=== PATIENT | male | born 1935 | race Caucasian/White ===

== ENCOUNTER 2017-04-16 16:53 | Outpatient (CLI) | payer MEDICARE ==
[2017-04-16 17:14] LABS: #Basophils 0.1 thou/uL (0.0-0.2); #Eosinphils 0.3 thou/uL (0.0-0.7); #Lymphocytes 1.4 thou/uL (1.20-3.40); #Monocytes 0.7 thou/uL (0.11-0.59); #Neutrophils 6.9 thou/uL (1.40-6.50); %Basophils 1.1 % (0.0-1.0); %Eosinophils 3.7 % (0.0-10.0); %Lymphocytes 14.5 % (21.0-51.0); %Monocytes 7.6 % (0.0-10.0); %Neutrophils 73.2 % (42.0-75.0); Hemoglobin 14.7 g/dL (14.0-18.0); Mean Corpuscular HGB CONC 34.7 g/dL (32.0-36.0); Mean Corpuscular Hemoglobin 32.6 pg (27.0-31.0); Mean Corpuscular Volume 93.9 fl (80.0-94.0); Mean Platelet Volume 6.6 fL (7.4-10.4); Platelet Count 261 thou/uL (130-400); RBC Distribution Width 12.4 % (11.5-14.5); Red Blood Cell (RBC) Count 4.51 mill/uL (4.70-6.10); White Blood Cell (WBC) Count 9.4 thou/uL (4.8-10.8)
[2017-04-16 17:31] LABS: ALT (SGPT) 22 U/L (8-55); AST (SGOT) 21 U/L (5-34); Albumin 4.3 g/dL (3.4-4.8); Alkaline Phosphatase 101 U/L (40-150); Anion Gap 18 mmol/L (10-20); BUN (Urea Nitrogen) 22 mg/dL (8.4-25.7); Bilirubin, Total 0.6 mg/dL (0.2-1.2); Calc. Creatinine Clearance 0 mL/min (70-130); Calcium 9.4 mg/dL (7.8-10.44); Carbon Dioxide 25 mmol/L (23-31); Chloride 102 mmol/L (98-107); Estimated GFR-MDRD 72; Glucose 93 mg/dL (83-110); Potassium 3.6 mmol/L (3.5-5.1); Protein, Total 7.3 g/dL (5.8-8.1); Sodium 141 mmol/L (136-145)
--- NOTE | 2017-04-16 18:08 | RAD ---
PA AND LATERAL CHEST: History: COPD. Histoplasmosis. FINDINGS: Comparison is made with 07-09-16. Multiple calcified granulomas are again seen in the lung corrigan on either side. The heart size is bor derline. There is a right sided pleural effusion. No pneumothoraces are seen. There are degenerative changes in the spine. IMPRESSION: 1. Moderate right pleural effusion. 2. Old granulomatous disease. POS: [facility]
[2017-04-16 18:09] LABS: Free T4 (Free Thyroxine) 1.13 ng/dL (0.70-1.48); Thyroid Stimulating Hormone 0.6612 uIU/mL (0.35-4.94)
== END 2017-04-16 16:54 | disposition home or self-care (01) ==
LOC: SCSRAD 16:53
PROVIDERS: ATTEND Family Medicine
DX: J90 Pleural effusion, not elsewhere classified (principal); E03.9 Hypothyroidism, unspecified; I10 Essential (primary) hypertension
CPT/HCPCS: 36415; 71046; 80053; 84439; 84443; 85025

== ENCOUNTER 2017-05-05 13:06 | Outpatient (CLI) | payer MEDICARE ==
--- NOTE | 2017-05-05 15:40 | CT ---
CT OF THE BRAIN WITHOUT AND WITH CONTRAST: COMPARISON: None. HISTORY: Dizziness. The patient has a history of melanoma. TECHNIQUE: Multiple contiguous axial images were obtained in a CT of the brain without and with IV contrast. FINDINGS: There are a few scattered hypodensities in the subcortical and periventricular white matter, likely s econdary to small-vessel ischemic disease. No large confluent infarction is seen. No abnormal enhan cement is seen. There is no enhancement of hydrocephalus, intracranial hemorrhage, or extraaxial fluid collection. The calvarium and overlying soft tissues are unremarkable. The visualized paranasal sinuses and mast oid air cells are well aerated. IMPRESSION: No evidence of acute intracranial abnormality. POS: [facility]
== END 2017-05-05 13:07 | disposition home or self-care (01) ==
LOC: SCSCT 13:06
PROVIDERS: ATTEND Family Medicine
DX: R26.81 Unsteadiness on feet (principal)
CPT/HCPCS: 70470

== ENCOUNTER 2017-05-21 14:18 | Outpatient (CLI) | payer MEDICARE ==
--- NOTE | 2017-05-21 14:52 | RAD ---
PA AND LATERAL VIEWS OF CHEST: Date: 05/21/17 HISTORY: Shortness of breath. FINDINGS: Comparison made with exam of 04/16/17. The heart size is borderline, stable. Moderate right-sided pleural effusion again seen. Multiple calc ified granulomas in the lung corrigan on either side are redemonstrated. There are degenerative changes in the spine. IMPRESSION: Stable exam. POS: [facility]
== END 2017-05-21 14:19 | disposition home or self-care (01) ==
LOC: SCSRAD 14:18
PROVIDERS: ATTEND Family Medicine
DX: J90 Pleural effusion, not elsewhere classified (principal)
CPT/HCPCS: 71046

== ENCOUNTER 2017-07-01 09:03 | Outpatient (CLI) | payer MEDICARE ==
--- NOTE | 2017-07-01 12:36 | RAD ---
PA AND LATERAL CHEST: HISTORY: Shortness of breath, cough, congestion for several weeks. COMPARISON: 05/21/2017 FINDINGS: The scattered calcified nodules within both lungs are similar, suspicious for granuloma. The moderat e cardiomegaly is stable. Mild pulmonary vascular congestion persists. There is a tiny left and a s mall right pleural effusion. There is multilevel spondylosis of the thoracic spine. IMPRESSION: Stable exam. POS: [facility]
== END 2017-07-01 09:04 | disposition home or self-care (01) ==
LOC: SCSRAD 09:03
PROVIDERS: ATTEND Family Medicine
DX: J90 Pleural effusion, not elsewhere classified (principal)
CPT/HCPCS: 71046

== ENCOUNTER 2017-07-17 17:23 | Inpatient (IN) | payer MEDICARE ==
[2017-07-17 18:10] LABS: INR-International Normal Ratio 1.5
[2017-07-17 18:11] LABS: PTT 53.7 SEC (22.9-36.1)
[2017-07-17 18:21] LABS: Troponin I 0.168 ng/mL (< 0.028)
[2017-07-17 18:23] LABS: CKMB 8.8 ng/mL (0-6.6)
[2017-07-17] MEDS ORDERED: DOBUTAMINE IN DEXTROSE 5 % 250 MG in Premix Bag 1 BAG IV SCH ×4 (18:45→19:45)
[2017-07-17] MEDS ORDERED: Bisacodyl 5 MG TAB PO PRN (19:22)
[2017-07-17] MEDS ORDERED: DOBUTamine 500 mg/250 ml 250 ML IVPB SCH (19:30)
--- NOTE | 2017-07-17 20:09 | RAD ---
FRONTAL VIEW CHEST: 07/17/17 CLINICAL HISTORY: Syncope. COMPARISON: 06/10/16. FINDINGS: There is a defibrillator pad overlying the right chest which obscures detail. There is a pleural base d density at the inferior right chest. Numerous punctate nodular densities are again seen overlying t he chest bilaterally. There is enlargement of the cardiac silhouette and mild prominence of the pulmo nary vasculature. Osseous degenerative changes are present. IMPRESSION: 1. Moderate right effusion with adjacent atelectasis and/or pneumonia. 2. Numerous hyperdense nodular opacities of each lung are again demonstrated indicating sequela from prior granulomatous disease. POS: [facility]
--- NOTE | 2017-07-17 20:53 | HP ---
PRIMARY CARE PHYSICIAN: Russell Scott M.D. CHIEF COMPLAINT: Syncope. HISTORY OF PRESENT ILLNESS: Mr. Mcdaniels is a pleasant 81-year-old gentleman who was seen at [facility] on 07/17/2017 after transfer from [place]. He was hospitalized at [facility] from 06/02/2017 to 06/06/2017 for acute hypo xic respiratory failure and acute on chronic diastolic heart failure. He reports doing reasonably well at home. His family member in the room reports that he fell at leas t 100 times in the last month. He saw Dr. Rebolledo as an outpatient. Apparently, he had a syncopal e pisode when he urinated on himself. It was felt that his presentation was secondary to a seizure. Nicki cosme has been started on Keppra for the last 1 or 2 weeks, but has not seen much improvement. He passed out last night for 1-1/2 minutes. He denies having any chest pain, but had dizziness. He passed out again today while getting into the car. He was seen at [facility]. There, he was found to villalpando ve 2:1 complete AV heart block. He was subsequently sent to this hospital. REVIEW OF SYSTEMS: The following complete review of systems was negative, unless otherwise mentioned in the HPI or below: Constitutional: Weight loss or gain, ability to conduct usual activities. Sk in: Rash, itching. Eyes: Double vision, pain. ENT/Mouth: Nose bleeding, neck stiffness, pain, te nderness. Cardiovascular: Palpitations, dyspnea on exertion, orthopnea. Respiratory: Shortness of breath, wheezing, cough, hemoptysis, fever or night sweats. Gastrointestinal: Poor appetite, abdom inal pain, heartburn, nausea, vomiting, constipation, or diarrhea. Genitourinary: Urgency, frequenc y, dysuria, nocturia. Musculoskeletal: Pain, swelling. Neurologic/Psychiatric: Anxiety, depressio n. Allergy/Immunologic: Skin rash, bleeding tendency. PAST MEDICAL HISTORY: Significant for chronic atrial fibrillation, on chronic anticoagulation with P radaxa; hypertension; diabetes; alcoholism; obstructive sleep apnea syndrome, on CPAP therapy; dyslip idemia; hypothyroidism; osteoarthritis; chronic headaches; unknown type of hepatitis; chronic lung di sease with history of exposure to bird droppings; viral encephalitis. PAST SURGICAL HISTORY: Significant for cardiac ablation x2, hernia repair, bilateral hip surgery, an d left heel surgery. SOCIAL HISTORY: He drinks 6-8 double shots of liquor on a daily basis. He denies any tobacco use or recreational drug use. FAMILY HISTORY: No family history of premature coronary artery disease. CODE STATUS: I discussed his code status. He is FULL CODE. ALLERGIES: PENICILLIN. CURRENT MEDICATIONS: Aspirin 81 mg daily, Lipitor 20 mg daily, Pradaxa 150 mg 2 times a day, folic a lucas 1 mg daily, Lasix 40 mg 2 times a day, ipratropium nasal spray twice daily, Synthroid 100 mcg cassie ly, lisinopril 5 mg 2 times a day, multivitamins 1 tablet daily, paroxetine 40 mg daily, Aldactone 25 mg daily, thiamine 100 mg daily, trazodone 100 mg at bedtime. PHYSICAL EXAMINATION: GENERAL: On examination, Mr. Mcdaniels is awake and alert, not in acute distress. VITAL SIGNS: Blood pressure is 120/65, pulse is 40, he is breathing at rate of 20 and saturating 94% on room air. He is afebrile. EYES: No scleral icterus. No conjunctival pallor. ENT: Moist mucosal membranes, no oropharyngeal erythema or exudates. NECK: Supple, nontender, normal range of movement. Trachea is midline. RESPIRATORY: Accessory muscles of breathing are not active. Chest wall movements are symmetric bila terally. Lungs are clear to auscultation without wheeze, rhonchi or crepitations. CARDIOVASCULAR: S1 and S2 are heard, bradycardic and regular. Peripheral pulses palpable. No carot id bruit, no pericardial rub. ABDOMEN: Distended, nontender, bowel sounds are heard, no hepatomegaly, no splenomegaly. NEUROLOGIC: Cranial nerves II-XII intact. Deep tendon reflexes are 2+. SKIN: No rashes or subcutaneous nodules. MUSCULOSKELETAL: Power is 5/5 in all 4 extremities. Normal range of movement at all major extremity joints. LYMPHATIC: No cervical lymphadenopathy. PSYCHIATRIC: Normal mood, normal affect. The patient is oriented to person, place, and time. LABORATORY AND X-RAY FINDINGS: Mr. Mcdaniels's labs and investigations were reviewed. I reviewed his chest x-ray, which does not show any pulmonary infiltrates. I also reviewed a noncontrast CT scan o f the brain, which did not show any acute intracranial abnormality. I reviewed the electrocardiogram done here, which shows sinus bradycardia with first degree AV block. Laboratory investigations show normal white count, macrocytic anemia with hemoglobin 13.3, normal joseluis telet count, normal electrolytes, elevated blood urea nitrogen of 30, elevated creatinine 1.46, last known creatinine 1.00 on 04/16/2017, normal total bilirubin, elevated AST of 56, elevated ALT of 75, elevated alkaline phosphatase of 161, all 3 parameters were normal in 04/2017, elevated troponin I of 0.168, last known troponin I 0.068 on 06/10/2016, elevated BNP of 541.2 and a normal TSH. ASSESSMENT AND PLAN: Mr. Mcdaniels is a pleasant 81-year-old gentleman who was seen at [facility] on 07/17/2017. His problem list includes: 1. Syncope: Cardiogenic, secondary to bradyarrhythmia. 2. Bradyarrhythmia: Mr. Mcdaniels is being admitted to the hospital for further management. His sravanthi e has been discussed with the chair springer rehabilitation tech by emergency room physician. The patient is being started on a dobutamine drip through peripheral line and is being admitted to [facility]. He is not on an y medications that could cause bradycardia. He will likely need permanent pacemaker. I will keep hi m n.p.o. after midnight. 3. Abnormal liver function test: Likely secondary to alcohol abuse, although an element of congesti ve heart failure cannot be ruled out, given his elevated BNP. We will recheck LFTs. 4. Alcohol abuse: Start the patient on ASE protocol, counseled patient regarding alcohol moderation . 5. Atrial fibrillation: We will hold his anticoagulation, since he may need a pacemaker placement. 6. Hypothyroidism: Stable, patient has a normal TSH. 7. Dyslipidemia: Continue statin. 8. Hypertension: Monitor vital signs, titrate antihypertensives as needed. Many thanks for allowing me to participate in your patient's care. Please feel free to contact me wi th any questions or concerns. LEVEL OF RISK: High. LEVEL OF COMPLEXITY: High.
[2017-07-17] MEDS ORDERED: Lisinopril 5 MG TAB PO SCH (21:00)
[2017-07-17] MEDS ORDERED: Atropine Sulfate 1 mg/1 ml Vial IVP PRN (22:23)
[2017-07-17 22:24] VITALS: BMI 30.2
[2017-07-17] MEDS: Folic Acid 1 MG TAB PO SCH (23:13)
--- NOTE | 2017-07-18 02:14 | CON ---
DATE OF CONSULTATION: 07/17/2017 PRIMARY CLEARANCE CENTER MANAGER: Dr. Rj Jaquez. HISTORY OF PRESENT ILLNESS: Mr. Claudio Mcdaniels is a 81-year-old gentleman with history of atrial f ibrillation, now admitted with severe bradycardia. Mr. Mcdaniels states that for about the last 3 or 4 days, he has felt weak and lightheaded. When he h as tried to get up, he is almost fainted. He finally came in to the emergency room and was found to have a severe bradycardia. The patient has a history of atrial fibrillation, but was maintaining sinus rhythm. He had been main tained on Pradaxa. He had been in the hospital in 06/2016 with acute hypoxic respiratory failure, improved with diuresis , apparently thought to have a left ventricular diastolic dysfunction and diastolic heart failure. A t that time, it was noted that he had paroxysmal atrial fibrillation. The patient had been doing wel l for the last few days, there has been no chest pain or tightness, but progressive weakness has been present. MEDICATIONS AT HOME: Included: 1. Pradaxa twice a day 150 mg 2. Folic acid. 3. Lasix. 4. Thiamine. 5. Aspirin. 6. Spironolactone. 7. Levothyroxine. 8. Doxycycline. REVIEW OF SYSTEMS: Constitutional: No significant weight gain or loss. Vision: No changes. Heari ng: No changes. Pulmonary: No cough or wheezing. Gastrointestinal: No nausea, vomiting, or diarr hea. Skin: No rashes. Neurologic: No unilateral weakness or numbness. Psychiatric: No unusual d epression or anxiety. Hematologic: No unusual bruising. Genitourinary: No burning with urination. ALLERGIES: PENICILLIN. PAST MEDICAL HISTORY: Paroxysmal atrial fibrillation. SOCIAL HISTORY: No alcohol or tobacco. FAMILY HISTORY: Negative for heart disease at a young age. PHYSICAL EXAMINATION: GENERAL: This is a very pleasant, elderly gentleman, resting comfortably, in no distress. VITAL SIGNS: Blood pressure is in the 130s systolic. Pulse now in the mid 40s. HEENT: Eyes: Sclerae nonicteric. Mouth: Mucous membranes moist. NECK: Supple, no lymphadenopathy. LUNGS: Clear, no wheezing, rales or rhonchi. CARDIAC: Bradycardic. I do not hear a murmur, rub or gallop. ABDOMEN: Soft, nontender, no hepatosplenomegaly. EXTREMITIES: Warm, dry, no clubbing or cyanosis. There is moderate peripheral edema. LABORATORY AND X-RAY FINDINGS: The patient's INR is 1.5, PTT is 53.7. Creatinine 1.46. Estimated GFR is 47. Hemoglobin is 13.3. EKG reveals a left bundle branch block pattern. It looked like there is a sinus rhythm with a 2:1 AV block. ASSESSMENT: 1. Left bundle branch block, chronic. 2. Bradycardia, sinus rhythm with 2:1 AV conduction. 3. Paroxysmal atrial fibrillation. 4. Anticoagulated, on Pradaxa. PLAN: 1. Dobutamine has been added. 2. He has a temporary pacemaker in place. 3. We will need pacemaker insertion, a dual chamber versus biventricular with normal left ventricula r systolic function, would likely get a dual chamber biventricular. 4. We will also check and see whether the Pradaxa is available.
[2017-07-18] MEDS ORDERED: Acetaminophen 325 MG TAB PO PRN (04:38)
[2017-07-18] MEDS ORDERED: Refresh (Polyvinyl Alcohol 1.4%/Povidone 0.6%) Opth Drops EA EYE PRN (04:39)
[2017-07-18] MEDS ORDERED: Sodium Chloride 0.9% 500 ML IV SCH (04:45)
[2017-07-18] MEDS: Levothyroxine Sodium 100 MCG TAB PO SCH (05:08)
[2017-07-18 05:22] LABS: #Eosinphils 0.2 thou/uL (0.0-0.7); #Lymphocytes 1.3 thou/uL (1.20-3.40); #Monocytes 0.5 thou/uL (0.11-0.59); #Neutrophils 5.1 thou/uL (1.40-6.50); %Basophils 0.3 % (0.0-1.0); %Eosinophils 2.6 % (0.0-10.0); %Lymphocytes 18.1 % (21.0-51.0); %Monocytes 7.4 % (0.0-10.0); %Neutrophils 71.7 % (42.0-75.0); Hemoglobin 12.6 g/dL (14.0-18.0); Mean Corpuscular HGB CONC 34.1 g/dL (32.0-36.0); Mean Corpuscular Hemoglobin 33.2 pg (27.0-31.0); Mean Corpuscular Volume 97.3 fl (80.0-94.0); Mean Platelet Volume 7.3 fL (7.4-10.4); Platelet Count 221 thou/uL (130-400); Red Blood Cell (RBC) Count 3.79 mill/uL (4.70-6.10); White Blood Cell (WBC) Count 7.1 thou/uL (4.8-10.8)
[2017-07-18 05:39] LABS: ALT (SGPT) 52 U/L (8-55); AST (SGOT) 34 U/L (5-34); Albumin 3.4 g/dL (3.4-4.8); Alkaline Phosphatase 136 U/L (40-150); Bilirubin, Direct 0.4 mg/dL (0.1-0.3); Bilirubin, Total 0.6 mg/dL (0.2-1.2); Protein, Total 5.5 g/dL (5.8-8.1)
[2017-07-18 05:46] LABS: Anion Gap 12 mmol/L (10-20); BUN (Urea Nitrogen) 26 mg/dL (8.4-25.7); Calc. Creatinine Clearance 75 mL/min (70-130); Calcium 8.9 mg/dL (7.8-10.44); Carbon Dioxide 23 mmol/L (23-31); Chloride 103 mmol/L (98-107); Estimated GFR-MDRD 62; Glucose 99 mg/dL (83-110); Potassium 3.4 mmol/L (3.5-5.1); Sodium 135 mmol/L (136-145)
[2017-07-18] MEDS ORDERED: DOPamine 400 MG/D5W 250 ML 250 ML IVPB SCH (07:30)
[2017-07-18] MEDS ORDERED: IDARUCIZUMAB 2.5 GM/50 ML VIAL IV SCH (09:00)
[2017-07-18] MEDS ORDERED: Spironolactone 25 MG TAB PO SCH (09:00)
[2017-07-18] MEDS ORDERED: Potassium Chloride 40 MEQ in Sodium Chloride 0.9% 250 ML 250 ML IVPB SCH (09:00)
[2017-07-18] MEDS ORDERED: Potassium Chloride 40 MEQ in Premix Bag 1 BAG IVPB SCH (09:00)
[2017-07-18] MEDS ORDERED: Lidocaine 1% (PF) 30 ML VIAL ONE ×2 (09:03→12:31)
--- NOTE | 2017-07-18 10:13 | RAD ---
RADIOGRAPH CHEST 1 VIEW: Date: 07/18/17 Time: 0905 HOURS HISTORY: 81-year-old male with congestive heart failure. COMPARISON: 07/17/17 at 1815 hours. FINDINGS: The current image is supine, which would be insensitive for pneumothorax detection. There is a greate r degree of prominent right apical pleural capping, presumably by posterior layering of right pleural effusion. The basilar component of the right pleural effusion remains, with underlying opacification of the right lung base. There is cardiomegaly. No pulmonary alveolar edema. There may or may not be a small left pleural effusion. Prominent interstitial markings. IMPRESSION: 1. Right pleural effusion and underlying opacification of right lung base. 2. Cardiomegaly. 3. Right apical pleural thickening, probably representing component of right pleural effusion. 4. There has probably been no major interval change since yesterday. MEG [] POS: [facility]
[2017-07-18] MEDS: PARoxetine 20 MG TAB PO SCH (10:18)
[2017-07-18] MEDS: Multivit, Therapeutic 1 TAB PO SCH (10:18)
[2017-07-18] MEDS: Proctozone-HC 2.5% Cream 30 GM TUBE TOP SCH ×2 (10:18→21:22)
[2017-07-18] MEDS: Atorvastatin Calcium 20 MG TAB PO SCH (10:18)
[2017-07-18 10:47] LABS: INR-International Normal Ratio 1.1; PTT 30.1 SEC (22.9-36.1); Prothrombin Time 13.9 SEC (12.0-14.7)
[2017-07-18] MEDS ORDERED: CEFAZOLIN 1 GM VIAL ONE (12:57)
[2017-07-18] MEDS ORDERED: Clindamycin/D5W 900 mg/50 ml Premix Bag ONE (12:57)
[2017-07-18] MEDS ORDERED: Levofloxacin 500 mg/D5W 100 ml Premix Bag ONE (12:57)
[2017-07-18] MEDS ORDERED: Midazolam HCl 2 mg/2 ml Vial ONE (13:21)
[2017-07-18] MEDS ORDERED: Acetaminophen/Codeine 30-300mg Tablet PO PRN (14:25)
--- NOTE | 2017-07-18 15:45 | PDOC.PN ---
- Subjective Encounter Start Date: 07/18/17 Encounter Start Time: 15:42 Subjective: had hypotension this morning requiring Dopamine & dobutamine drips -: Now is s/p temp Pacemaker insertion by cardiology this am -: feels better.denies any CP/SOB - Objective Resuscitation Status: Resuscitation Status FULL:Full Resuscitation MAR Reviewed: Yes Vital Signs & Weight: Vital Signs (12 hours) Temp Pulse Resp BP Pulse Ox 07/18/17 15:26 94 L 07/18/17 12:00 98.1 F 98 07/18/17 09:47 98.1 F 78 16 96 07/18/17 08:39 97.7 F 49 L 16 88 L 07/18/17 08:15 49 L 16 70/34 L 87 L 07/18/17 07:13 97.7 F 56 L 18 75/36 L 91 L 07/18/17 06:41 91 L 07/18/17 04:00 98.7 F 79 18 95/48 L 97 Weight Weight 222 lb 8 oz Most Recent Monitor Data Heart Rate from ECG 71 NIBP 90/54 NIBP BP-Mean 64 Respiration from ECG 19 SpO2 95 I&O: 07/17/17 07/18/17 07/19/17 06:59 06:59 06:59 Intake Total 788 260 Output Total 325 0 Balance 463 260 Result Diagrams: 07/18/17 04:42 07/18/17 04:42 Additional Labs: Laboratory Tests 06/02/16 06/02/16 06/02/16 07:57 11:49 14:24 Troponin I 0.043 H 0.044 H 0.050 H Triglycerides Cholesterol LDL Cholesterol, Calc HDL Cholesterol 06/03/16 06:28 Troponin I Triglycerides 57 Cholesterol 112 LDL Cholesterol, Calc 57 HDL Cholesterol 44 Phys Exam - Physical Examination Constitutional: NAD HEENT: PERRLA, moist MMs, sclera anicteric, oral pharynx no lesions venti mask Neck: no JVD Respiratory: no wheezing, no rales, no rhonchi, clear to auscultation bilateral Cardiovascular: RRR, no significant murmur Gastrointestinal: soft, non-tender, no distention, positive bowel sounds Musculoskeletal: no edema, pulses present left groin site w/o hematoma Neurological: non-focal, normal sensation, moves all 4 limbs Psychiatric: normal affect, A&O x 3 Dx/Plan (1) Cardiogenic shock Code(s): R57.0 - CARDIOGENIC SHOCK Status: Acute Comment: On Dobutamine & dopamine per cardiology (2) AV block Code(s): I44.30 - UNSPECIFIED ATRIOVENTRICULAR BLOCK Status: Acute Comment: s/p Temp pacemaker 07/18/17.Cardiology following (3) H/O histoplasmosis Code(s): Z86.19 - PERSONAL HISTORY OF OTHER INFECTIOUS AND PARASITIC DISEASES Status: Chronic (4) Chronic respiratory failure with hypoxia, on home O2 therapy Code(s): J96.11 - CHRONIC RESPIRATORY FAILURE WITH HYPOXIA; Z99.81 - DEPENDENCE ON SUPPLEMENTAL OXYGEN Status: Chronic (5) ESTELA on CPAP Code(s): G47.33 - OBSTRUCTIVE SLEEP APNEA (ADULT) (PEDIATRIC); Z99.89 - DEPENDENCE ON OTHER ENABLING MACHINES AND DEVICES Status: Chronic (6) Chronic a-fib Code(s): I48.2 - CHRONIC ATRIAL FIBRILLATION Status: Chronic (7) Chronic alcoholism Code(s): F10.20 - ALCOHOL DEPENDENCE, UNCOMPLICATED Status: Chronic (8) HLD (hyperlipidemia) Code(s): E78.5 - HYPERLIPIDEMIA, UNSPECIFIED Status: Chronic (9) HTN (hypertension) Code(s): I10 - ESSENTIAL (PRIMARY) HYPERTENSION Status: Chronic Qualifiers: Hypertension type: essential hypertension Qualified Code(s): I10 - Essential (primary) hypertension (10) Chronic anticoagulation Code(s): Z79.01 - PUMP SERVICER (CURRENT) USE OF ANTICOAGULANTS Status: Chronic Comment: Pradaxa on hold for procedure - Plan PT/OT, respiratory therapy, incentive spirometry, out of bed/ambulate, DVT proph w/SCDs cont supportive care. Improved hemodynamics post procedure. -: hold BP meds for now -: Move to CCU for closer monitoring -: am labs. * . Review of Systems - Review of Systems Constitutional: weakness. negative: fever, chills, sweats, malaise, other ENT: negative: Ear Pain, Ear Discharge, Nose Pain, Nose Discharge, Nose Congestion, Mouth Pain, Mouth Swelling, Throat Pain, Throat Swelling, Other Respiratory: negative: Cough, Dry, Shortness of Breath, Hemoptysis, SOB with Excertion, Pleuritic Pain, Sputum, Wheezing Cardiovascular: negative: chest pain, palpitations, orthopnea, paroxysmal nocturnal dyspnea, edema, light headedness, other Gastrointestinal: negative: Nausea, Vomiting, Abdominal Pain, Diarrhea, Constipation, Melena, Hematochezia, Other Genitourinary: negative: Dysuria, Frequency, Incontinence, Hematuria, Retention , Other Musculoskeletal: negative: Neck Pain, Shoulder Pain, Arm Pain, Back Pain, Hand Pain, Leg Pain, Foot Pain, Other Skin: negative: Rash, Lesions, Channing, Bruising, Other Neurological: negative: Weakness, Numbness, Incoordination, Change in Speech, Confusion, Seizures, Other - Medications/Allergies Allergies/Adverse Reactions: Allergies Allergy/AdvReac Type Severity Reaction Status Date / Time Penicillins Allergy Verified 07/18/17 06:20 Medications: Current Medications Acetaminophen (Tylenol) 650 mg PO Q6H PRN PRN Reason: Pain 1-3 Acetaminophen/Codeine Phosphate (Tylenol #3) 1 tab PO Q4H PRN PRN Reason: Mild Pain (1-3) Atorvastatin Calcium (Lipitor) 20 mg PO DAILY [facility] Last Admin: 07/18/17 10:18 Dose: Not Given Atropine Sulfate (Atropine) 1 mg IVP ONE PRN PRN Reason: SYMPTOMATIC BRADYCARDIA Stop: 07/20/17 22:24 Bisacodyl (Dulcolax) 10 mg PO DAILYPRN PRN PRN Reason: Constipation Folic Acid (Folvite) 1 mg PO QPM [facility] Last Admin: 07/17/17 23:13 Dose: 1 mg Hydrocortisone Sodium Succinate (Proctozone-Hc 2.5% Cream) 0 gm TOP BID [facility] Last Admin: 07/18/17 10:18 Dose: Not Given Levothyroxine Sodium (Synthroid) 100 mcg PO 0600 [facility] Last Admin: 07/18/17 05:08 Dose: 100 mcg Multivitamins (Theragran) 1 tab PO DAILY [facility] Last Admin: 07/18/17 10:18 Dose: Not Given Paroxetine HCl (Paxil) 40 mg PO DAILY [facility] Last Admin: 07/18/17 10:18 Dose: Not Given Polyvinyl Alcohol/Povidone (Refresh Classic Eye Drops) 0 each EA EYE PRN PRN PRN Reason: DRY EYES Last Admin: 07/18/17 04:56 Dose: 1 each Sodium Chloride (Flush - Normal Saline) 10 ml IVF Q12HR [facility] Sodium Chloride (Flush - Normal Saline) 10 ml IVF PRN PRN PRN Reason: Saline Flush Sodium Chloride (Flush - Normal Saline) 10 ml IVF Q12HR [facility] Thiamine HCl (Thiamine) 100 mg PO QPM [facility] Last Admin: 07/17/17 23:13 Dose: 100 mg
--- NOTE | 2017-07-18 15:54 | CCL ---
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 He was advised to undergo dual-chamber pacemake r insertion. He was taken to cardiac dental laboratory worker where he underwent procedure today without difficulty or complicatio n. He was implanted with a dual chamber pacemaker from [employer]. This is an [employer] and he also had two screw in leads placed, one in the atrium, one in the ventricle. The pacer was set with the upper rate of 120. The lower rate was set at 60. There were no difficulties or complications encountered. The temporary pacemaker was then removed.
--- NOTE | 2017-07-18 16:32 | RAD ---
RADIOGRAPH CHEST 1 VIEW: Date: 07/18/17 Time: 4:20 p.m. HISTORY: Status post pacemaker placement in 81-year-old male. COMPARISON: 07/18/17, 9:05 a.m. FINDINGS: There is a new left subclavian dual lead pacemaker, with lead tips overlying the expected locations o f the right atrial appendage and right ventricle. There is no evidence of pneumothorax. There is inte rval change in the appearance of the chest otherwise. IMPRESSION: 1. Left transvenous permanent pacemaker placement without evidence of pneumothorax. 2. Right pleural effusion with opacification of the right base, and also with right apical compo nent. 3. No interval change in the appearance of the lungs. MEG [] POS: [facility]
--- NOTE | 2017-07-18 17:43 | CCL ---
DATE OF SERVICE: 07/18/17 PROCEDURE PERFORMED: Temporary pacemaker placement. INDICATION: Complete heart block with hemodynamic instability. SUMMARY: The patient was brought to the catheterization lab emergently after verbal consent was obtained, he w as prepped and draped in the usual sterile fashion. We then obtained access in the right femoral vei n and then floated a temporary pacer wire balloon tipped into the right ventricle where he started be ing paced successfully. Blood pressure improved. Symptoms also improved. Plan to insert a permanent pacemaker later today in a more stable setting.
--- NOTE | 2017-07-18 18:05 | PRG ---
DATE OF SERVICE: 07/18/2017 This is a late entry and the patient was seen at 9:00 a.m. today. Mr. Mcdaniels was admitted yesterda y for symptomatic bradycardia. He was found to be in complete heart block 2:1 AV block as well and w as admitted and placed on dobutamine and dopamine for hypotension during his bradycardia. This benito smith I was called emergently at his bedside as his heart rate remained in the 40s in 2:1 AV block; how ever, he started to get short of breath, hypoxic, and his blood pressure dropped to the 60s/40s. At this point, he has received a dose of Pradaxa yesterday, so he is still anticoagulated, so it would n ot be safe to do a permanent pacemaker, so we up titrated his dopamine and dobutamine. I stayed with him until we were able to take him down to the catheterization lab and placed a temporary pacemaker. Once temporary pacemaker was placed, his heart rate was set at 80 and his blood pressure was actual ly much better into the 100s/50s. He also felt much better. He is a little more short of breath titi n before, so he started to go into heart failure. We also ordered a dose of Praxbind to reverse the Pradaxa. This was given bedside as well. The patient is stable now. He will receive a permanent pa cemaker later today. Over 45 minutes were spent bedside of critical care for this patient.
--- NOTE | 2017-07-18 20:59 | PRG ---
DATE OF SERVICE: 07/18/2017 This is pulmonary consultation SUBJECTIVE: Mr. Mcdaniels is a gentleman seen by me in the Critical Care Unit, being temporally pace d. Consulted because of his presence in the ICU. He apparently has a history of falling frequently. He recently had syncope. He was treated for seiz ures with Keppra, but has continued to have syncope. He has subsequently been found to have a 2:1 AV block and was sent in temporally paced. He schedule for permanent pacemaker this afternoon. PAST MEDICAL HISTORY: 1. Remarkable for chronic atrial afibrillation on Pradaxa. 2. Hypertension. 3. Diabetes. 4. History of sleep apnea on CPAP. 5. Lipid disorder. 6. Hypothyroidism. 7. DJD. 8. History of hepatitis. 9. History of some type of chronic lung disease. 10. History of viral encephalitis. 11. History of cardiac ablation. 12. History of herniorrhaphy. 13. History of bilateral hip replacements and heel surgery. SOCIAL HISTORY: He is a heavy drinker, nonsmoker. He does not use drugs. FAMILY HISTORY: Negative for lung disease or heart disease. ALLERGIES: Reports an allergy to PENICILLIN. MEDICATIONS: Include aspirin, Lipitor, Pradaxa, Lasix, ipratropium nasal spray, Synthroid, lisinopri l, multivitamins, Aldactone, thiamine, trazodone. REVIEW OF SYSTEMS: Ten points were negative. PHYSICAL EXAMINATION: GENERAL: He is very pleasant. He was in no distress. He is supine with a pacer in place. I did no t sit him up. VITAL SIGNS: He is afebrile, heart rate was 70, oximetry is 94 on 2 liters, blood pressure 106/61. HEENT: Pupils are equal. Sclerae is anicteric. Extraocular movements are full. NECK: Supple. No lymphadenopathy. LUNGS: Clear. CARDIOVASCULAR: Regular rhythm, no S3. ABDOMEN: Soft and nontender. EXTREMITIES: Without clubbing, cyanosis, or edema. NEUROLOGIC: Nonfocal as best as I could examine him lying flat in bed. He had no apparent weakness of any of his extremities. IMAGING: Chest radiograph reviewed by me showed transient pacer, right pleural effusion, otherwise lungs are remarkable. LABORATORY DATA: White count 7.1, hemoglobin 12.6, platelets 221. Sodium 135, potassium 3.4, chlori de 103, bicarb 23, BUN 26, creatinine 1.14, glucose 99, albumin 0.16. BNP 775. IMPRESSION: Heart block requiring pacemaker temporarily and then eventually later today. Hopefully, permanent pacemaker appears to be clinically stable. He has not dyspneic, flat in bed. An echocardiogram has been done which surprisingly shows a normal ejection fraction, but severe left ventricular hypertrophy, moderate mitral regurgitation was seen. He appears to be clinically stable to go down for his pacemaker will be happy to follow him while he is in the hospital. There are no acute care issues. I see nothing on his radiograph suggestive of c hronic lung disease. This is a 50 minute consult greater than 50% of the time was spent in the coordinating care.
[2017-07-18] MEDS: Folic Acid 1 MG TAB PO SCH (21:21)
[2017-07-19 04:21] LABS: #Eosinphils 0.2 thou/uL (0.0-0.7); #Lymphocytes 1.1 thou/uL (1.20-3.40); #Monocytes 0.7 thou/uL (0.11-0.59); #Neutrophils 5.3 thou/uL (1.40-6.50); %Eosinophils 2.1 % (0.0-10.0); %Lymphocytes 15.2 % (21.0-51.0); %Monocytes 10.2 % (0.0-10.0); %Neutrophils 72.4 % (42.0-75.0); Hemoglobin 12.6 g/dL (14.0-18.0); Mean Corpuscular HGB CONC 34.1 g/dL (32.0-36.0); Mean Corpuscular Hemoglobin 33.3 pg (27.0-31.0); Mean Corpuscular Volume 97.7 fl (80.0-94.0); Mean Platelet Volume 6.9 fL (7.4-10.4); Platelet Count 234 thou/uL (130-400); RBC Distribution Width 14.1 % (11.5-14.5); Red Blood Cell (RBC) Count 3.77 mill/uL (4.70-6.10); White Blood Cell (WBC) Count 7.3 thou/uL (4.8-10.8)
[2017-07-19 04:51] LABS: Anion Gap 11 mmol/L (10-20); BUN (Urea Nitrogen) 23 mg/dL (8.4-25.7); Calc. Creatinine Clearance 84 mL/min (70-130); Calcium 8.6 mg/dL (7.8-10.44); Carbon Dioxide 23 mmol/L (23-31); Chloride 106 mmol/L (98-107); Estimated GFR-MDRD 71; Glucose 94 mg/dL (83-110); Sodium 136 mmol/L (136-145)
[2017-07-19] MEDS: Levothyroxine Sodium 100 MCG TAB PO SCH (05:03)
[2017-07-19] MEDS: Proctozone-HC 2.5% Cream 30 GM TUBE TOP SCH ×2 (08:00→20:58)
[2017-07-19] MEDS ORDERED: Amitriptyline HCl 25 MG TAB PO SCH (09:00)
[2017-07-19] MEDS ORDERED: Furosemide 20 MG TAB PO SCH (09:00)
[2017-07-19] MEDS: Folic Acid 1 MG TAB PO SCH ×2 (09:53→20:56)
[2017-07-19] MEDS: Multivit, Therapeutic 1 TAB PO SCH (09:53)
[2017-07-19] MEDS: Atorvastatin Calcium 20 MG TAB PO SCH (09:53)
[2017-07-19] MEDS: PARoxetine 20 MG TAB PO SCH (09:54)
[2017-07-19] MEDS: Furosemide 20 MG TAB PO SCH ×2 (09:54→15:02)
[2017-07-19] MEDS: levETIRAcetam 500 MG TAB PO SCH ×2 (09:55→20:56)
[2017-07-19] MEDS ORDERED: Sodium Chloride 0.9% 10 ML ONE ×2 (11:08→17:31)
[2017-07-19] MEDS: Vancomycin HCl 1 GM in Premix Bag 1 BAG IVPB SCH ×2 (11:13→21:10)
[2017-07-19] MEDS: metroNIDAZOLE 500 MG in Premix Bag 1 BAG IVPB SCH ×3 (12:29→23:05)
--- NOTE | 2017-07-19 13:00 | ULT ---
TESTICULAR ULTRASOUND: INDICATION: Scrotal pain and edema. TECHNIQUE: Marquez scale, color Doppler, vascular duplex with spectral analysis was performed. FINDINGS: No intratesticular mass or torsion is demonstrated. There are small bilateral hydroceles. The right testicle measured 4.6 x 3.1 x 2.4 cm. The left testicle measures 4.6 x 2.9 x 3.7 cm. Ther e is normal vascular flow to both testicles. IMPRESSION: Bilateral hydroceles. No intratesticular mass or torsion demonstrated. POS: JAYANT
--- NOTE | 2017-07-19 13:44 | PDOC.PN ---
- Subjective Encounter Start Date: 07/19/17 Encounter Start Time: 13:42 Subjective: feels much better. no SOB/CP -: c/o scrotal swelling and pain - Objective Resuscitation Status: Resuscitation Status FULL:Full Resuscitation MAR Reviewed: Yes Vital Signs & Weight: Vital Signs (12 hours) Temp Pulse Pulse Resp BP BP Pulse Ox 07/19/17 12:00 98.4 F 77 16 117/62 96 07/19/17 11:24 76 124/62 07/19/17 08:00 98.5 F 72 16 127/71 94 L 07/19/17 03:19 98.5 F 76 18 107/60 94 L Pulse Ox 07/19/17 12:00 07/19/17 11:24 91 L 07/19/17 08:00 07/19/17 03:19 Weight Weight 219 lb 12.8 oz Most Recent Monitor Data Heart Rate from ECG 70 NIBP 106/61 NIBP BP-Mean 74 Respiration from ECG 19 SpO2 97 I&O: 07/18/17 07/19/17 07/20/17 06:59 06:59 06:59 Intake Total 788 940 Output Total 325 575 Balance 463 365 Result Diagrams: 07/19/17 03:56 07/19/17 03:56 Phys Exam - Physical Examination Constitutional: NAD HEENT: PERRLA, moist MMs, sclera anicteric, oral pharynx no lesions Neck: no JVD Respiratory: no wheezing, no rales, no rhonchi, clear to auscultation bilateral Cardiovascular: RRR, no significant murmur Gastrointestinal: soft, non-tender, no distention, positive bowel sounds Musculoskeletal: no edema, pulses present erythema,swelling and tenderness to entire scrotum,not in groin Neurological: non-focal, normal sensation, moves all 4 limbs Psychiatric: normal affect, A&O x 3 Skin: no rash Dx/Plan (1) Cellulitis of scrotum Code(s): N49.2 - INFLAMMATORY DISORDERS OF SCROTUM Status: Acute (2) AV block Code(s): I44.30 - UNSPECIFIED ATRIOVENTRICULAR BLOCK Status: Acute Comment: s/p Temp and then permanant pacemaker 07/18/17.Cardiology following (3) H/O histoplasmosis Code(s): Z86.19 - PERSONAL HISTORY OF OTHER INFECTIOUS AND PARASITIC DISEASES Status: Chronic (4) Chronic respiratory failure with hypoxia, on home O2 therapy Code(s): J96.11 - CHRONIC RESPIRATORY FAILURE WITH HYPOXIA; Z99.81 - DEPENDENCE ON SUPPLEMENTAL OXYGEN Status: Chronic (5) ESTELA on CPAP Code(s): G47.33 - OBSTRUCTIVE SLEEP APNEA (ADULT) (PEDIATRIC); Z99.89 - DEPENDENCE ON OTHER ENABLING MACHINES AND DEVICES Status: Chronic (6) Chronic a-fib Code(s): I48.2 - CHRONIC ATRIAL FIBRILLATION Status: Chronic (7) Chronic alcoholism Code(s): F10.20 - ALCOHOL DEPENDENCE, UNCOMPLICATED Status: Chronic (8) HLD (hyperlipidemia) Code(s): E78.5 - HYPERLIPIDEMIA, UNSPECIFIED Status: Chronic (9) HTN (hypertension) Code(s): I10 - ESSENTIAL (PRIMARY) HYPERTENSION Status: Chronic Qualifiers: Hypertension type: essential hypertension Qualified Code(s): I10 - Essential (primary) hypertension (10) Chronic anticoagulation Code(s): Z79.01 - DRYER FEEDER (CURRENT) USE OF ANTICOAGULANTS Status: Chronic Comment: Pradaxa on hold for procedure (11) Cardiogenic shock Code(s): R57.0 - CARDIOGENIC SHOCK Status: Resolved Comment: On Dobutamine & dopamine per cardiology - Plan PT/OT, out of bed/ambulate, DVT proph w/SCDs Add empiric ABx,send blood Cx.add topical nystatin as well -: testicular US done & results reviewed-mild hydrocoele -: PSa ordered per family request-OP follow up w PCP w results -: Ascites noted on CXR.pt takes lasix & aldactone at home -: Restart lasix & add aldactone later if BP stable. * Try to wean off of o2 as tolerated * ambulate * am labs Review of Systems - Review of Systems Constitutional: negative: fever, chills, sweats, weakness, malaise, other ENT: negative: Ear Pain, Ear Discharge, Nose Pain, Nose Discharge, Nose Congestion, Mouth Pain, Mouth Swelling, Throat Pain, Throat Swelling, Other Respiratory: negative: Cough, Dry, Shortness of Breath, Hemoptysis, SOB with Excertion, Pleuritic Pain, Sputum, Wheezing Cardiovascular: negative: chest pain, palpitations, orthopnea, paroxysmal nocturnal dyspnea, edema, light headedness, other Gastrointestinal: negative: Nausea, Vomiting, Abdominal Pain, Diarrhea, Constipation, Melena, Hematochezia, Other Genitourinary: Other. negative: Dysuria, Frequency, Incontinence, Hematuria, Retention Musculoskeletal: negative: Neck Pain, Shoulder Pain, Arm Pain, Back Pain, Hand Pain, Leg Pain, Foot Pain, Other Skin: negative: Rash, Lesions, Channing, Bruising, Other Neurological: negative: Weakness, Numbness, Incoordination, Change in Speech, Confusion, Seizures, Other - Medications/Allergies Allergies/Adverse Reactions: Allergies Allergy/AdvReac Type Severity Reaction Status Date / Time Penicillins Allergy Verified 07/18/17 06:20 Medications: Current Medications Acetaminophen (Tylenol) 650 mg PO Q6H PRN PRN Reason: Pain 1-3 Acetaminophen/Codeine Phosphate (Tylenol #3) 1 tab PO Q4H PRN PRN Reason: Mild Pain (1-3) Last Admin: 07/18/17 21:28 Dose: 1 tab Amitriptyline HCl (Elavil) 25 mg PO HS [facility] Atorvastatin Calcium (Lipitor) 20 mg PO DAILY [facility] Last Admin: 07/19/17 09:53 Dose: 20 mg Atropine Sulfate (Atropine) 1 mg IVP ONE PRN PRN Reason: SYMPTOMATIC BRADYCARDIA Stop: 07/20/17 22:24 Bisacodyl (Dulcolax) 10 mg PO DAILYPRN PRN PRN Reason: Constipation Folic Acid (Folvite) 1 mg PO QPM [facility] Last Admin: 07/18/17 21:21 Dose: 1 mg Folic Acid (Folvite) 1 mg PO DAILY [facility] Last Admin: 07/19/17 09:53 Dose: 1 mg Furosemide (Lasix) 40 mg PO 0900,1400 [facility] Last Admin: 07/19/17 09:54 Dose: 40 mg Hydrocortisone Sodium Succinate (Proctozone-Hc 2.5% Cream) 0 gm TOP BID [facility] Last Admin: 07/19/17 08:00 Dose: 1 applic Vancomycin HCl 1 gm/ Device 200 mls @ 200 mls/hr IVPB 1000,2200 [facility] Last Admin: 07/19/17 11:13 Dose: 200 mls Metronidazole 500 mg/ Device 100 mls @ 100 mls/hr IVPB Q6HR [facility] Last Admin: 07/19/17 12:29 Dose: 100 mls Levetiracetam (Keppra) 500 mg PO BID [facility] Last Admin: 07/19/17 09:55 Dose: 500 mg Levothyroxine Sodium (Synthroid) 100 mcg PO 0600 [facility] Last Admin: 07/19/17 05:03 Dose: 100 mcg Multivitamins (Theragran) 1 tab PO DAILY [facility] Last Admin: 07/19/17 09:53 Dose: 1 tab Nystatin (Mycostatin Powder) 1 gm TOP BID [facility] Paroxetine HCl (Paxil) 40 mg PO DAILY [facility] Last Admin: 07/19/17 09:54 Dose: 40 mg Polyvinyl Alcohol/Povidone (Refresh Classic Eye Drops) 0 each EA EYE PRN PRN PRN Reason: DRY EYES Last Admin: 07/18/17 04:56 Dose: 1 each Sodium Chloride (Flush - Normal Saline) 10 ml IVF Q12HR [facility] Last Admin: 07/19/17 09:56 Dose: 10 ml Sodium Chloride (Flush - Normal Saline) 10 ml IVF PRN PRN PRN Reason: Saline Flush Last Admin: 07/19/17 12:30 Dose: 10 ml Sodium Chloride (Flush - Normal Saline) 10 ml IVF Q12HR [facility] Last Admin: 07/18/17 21:22 Dose: 10 ml Thiamine HCl (Thiamine) 100 mg PO QPM [facility] Last Admin: 07/18/17 21:21 Dose: 100 mg
--- NOTE | 2017-07-19 16:33 | PDOC.CTH ---
Cardiology Progress Note - Subjective He is doing much better since PPM placed. He is still a little volume up. - Objective Vital Signs Temp Pulse Pulse Resp BP BP Pulse Ox 07/19/17 12:00 98.4 F 77 16 117/62 96 07/19/17 11:24 76 124/62 07/19/17 08:00 98.5 F 72 16 127/71 95 Pulse Ox 07/19/17 12:00 07/19/17 11:24 91 L 07/19/17 08:00 Weight 219 lb 12.8 oz 07/18/17 07/19/17 07/20/17 06:59 06:59 06:59 Intake Total 788 940 Output Total 325 575 Balance 463 365 - Physical Examination General/Neuro: alert & oriented x3, NAD Neck: no JVD present Lungs: CTA, unlabored respirations Heart: RRR Abdomen: NT/ND Extremities: + edema B (1+) - Telemetry Telemetry Rhythm: A paced. - Labs Result Diagrams: 07/19/17 03:56 07/19/17 03:56 Troponin/CKMB CK-MB (CK-2) 8.8 ng/mL (0-6.6) H* 07/17/17 17:44 Troponin I 0.168 ng/mL (< 0.028) H 07/17/17 17:44 - Assessment/Plan 1. Symptomatic bradycardia. 2. Acute on chronic diastolic heart failure 3. 2-1 AV block. 4. S/P PPM placement. PLAN; - Start IV lasix. BP stable since PPM placed.
[2017-07-19] MEDS ORDERED: Furosemide 100 MG/10 ML VIAL SLOW IVP SCH (16:45)
--- NOTE | 2017-07-19 18:49 | PRG ---
DATE OF SERVICE: 07/19/2017 SUBJECTIVE: He is doing well. He has no complaints. He stay in the bathroom, shaving. He says he feels fantastic. OBJECTIVE: VITAL SIGNS: His heart rate certainly was 80s, afebrile, respiratory rate 16, oximetry 92 on room ai r, blood pressure 149/83. LUNGS: Completely clear. HEART: Regular rhythm. S1 and S2 are normal. ABDOMEN: Soft and nontender. LABORATORY DATA: White count 7.3, hemoglobin 12.6, platelets 234,000. Electrolytes are normal. Pos t-procedure chest radiograph from yesterday showed haziness in his right base but no change in his x- ray. IMPRESSION: Status post pacemaker implantation, clinically stable. PLAN: Continue current care.
[2017-07-19] MEDS: Amitriptyline HCl 25 MG TAB PO SCH (20:56)
[2017-07-19] MEDS: Nystatin Powder 15 GM BOT TOP SCH (21:01)
[2017-07-20 05:15] LABS: #Eosinphils 0.2 thou/uL (0.0-0.7); #Lymphocytes 0.9 thou/uL (1.20-3.40); #Monocytes 0.6 thou/uL (0.11-0.59); #Neutrophils 3.5 thou/uL (1.40-6.50); %Basophils 0.9 % (0.0-1.0); %Eosinophils 4.7 % (0.0-10.0); %Lymphocytes 17.1 % (21.0-51.0); %Monocytes 11.6 % (0.0-10.0); %Neutrophils 65.7 % (42.0-75.0); Hemoglobin 12.7 g/dL (14.0-18.0); Mean Corpuscular HGB CONC 32.6 g/dL (32.0-36.0); Mean Corpuscular Hemoglobin 32.8 pg (27.0-31.0); Mean Platelet Volume 7.1 fL (7.4-10.4); Platelet Count 227 thou/uL (130-400); RBC Distribution Width 14.2 % (11.5-14.5); Red Blood Cell (RBC) Count 3.88 mill/uL (4.70-6.10); White Blood Cell (WBC) Count 5.3 thou/uL (4.8-10.8)
[2017-07-20 05:43] LABS: Anion Gap 10 mmol/L (10-20); BUN (Urea Nitrogen) 19 mg/dL (8.4-25.7); Calc. Creatinine Clearance 101 mL/min (70-130); Calcium 8.5 mg/dL (7.8-10.44); Carbon Dioxide 26 mmol/L (23-31); Chloride 107 mmol/L (98-107); Estimated GFR-MDRD 88; Glucose 92 mg/dL (83-110); Potassium 3.5 mmol/L (3.5-5.1); Sodium 139 mmol/L (136-145)
[2017-07-20] MEDS: Levothyroxine Sodium 100 MCG TAB PO SCH (06:21)
[2017-07-20] MEDS: metroNIDAZOLE 500 MG in Premix Bag 1 BAG IVPB SCH ×4 (06:21→23:32)
[2017-07-20] MEDS: Proctozone-HC 2.5% Cream 30 GM TUBE TOP SCH ×2 (08:33→20:33)
[2017-07-20] MEDS: Atorvastatin Calcium 20 MG TAB PO SCH (08:34)
[2017-07-20] MEDS: Nystatin Powder 15 GM BOT TOP SCH ×2 (08:34→20:31)
[2017-07-20] MEDS: Furosemide 20 MG TAB PO SCH ×2 (08:34→12:46)
[2017-07-20] MEDS: Spironolactone 25 MG TAB PO SCH ×2 (08:35→20:28)
[2017-07-20] MEDS: Multivit, Therapeutic 1 TAB PO SCH (08:35)
[2017-07-20] MEDS: PARoxetine 20 MG TAB PO SCH (08:35)
[2017-07-20] MEDS: levETIRAcetam 500 MG TAB PO SCH ×2 (08:35→20:28)
[2017-07-20] MEDS: Folic Acid 1 MG TAB PO SCH ×2 (08:35→20:28)
[2017-07-20] MEDS: Vancomycin HCl 1 GM in Premix Bag 1 BAG IVPB SCH ×2 (11:07→21:25)
--- NOTE | 2017-07-20 11:20 | PDOC.PN ---
- Subjective Encounter Start Date: 07/20/17 Encounter Start Time: 11:18 Subjective: feels much better today.walked w PT -: no CP/SOB -: scrotal pain better - Objective Resuscitation Status: Resuscitation Status FULL:Full Resuscitation MAR Reviewed: Yes Vital Signs & Weight: Vital Signs (12 hours) Temp Pulse Resp BP BP BP Pulse Ox 07/20/17 11:13 97.5 F L 72 18 156/81 H 96 07/20/17 07:45 97.6 F 61 16 95 07/20/17 07:43 97.6 F 61 16 136/71 95 07/20/17 04:00 97.7 F 64 20 138/74 97 07/20/17 00:00 97.6 F 69 20 156/79 H 94 L Weight Weight 219 lb 12.8 oz Most Recent Monitor Data Heart Rate from ECG 70 NIBP 106/61 NIBP BP-Mean 74 Respiration from ECG 19 SpO2 97 I&O: 07/19/17 07/20/17 07/21/17 06:59 06:59 06:59 Intake Total 940 820 760 Output Total 575 2285 1150 Balance 365 -1465 -390 Result Diagrams: 07/20/17 04:14 07/20/17 04:14 Additional Labs: Microbiology 07/19/17 10:36 Venous blood - Right Hand Blood Culture - Preliminary Specimen has been received and culture in progress. No Growth to date. 07/19/17 10:36 Venous blood - Left Hand Blood Culture - Preliminary Specimen has been received and culture in progress. No Growth to date. Phys Exam - Physical Examination Constitutional: NAD HEENT: PERRLA, moist MMs, sclera anicteric, oral pharynx no lesions Neck: no nodes, no JVD, supple, full ROM Respiratory: no wheezing, no rales, no rhonchi, clear to auscultation bilateral Cardiovascular: RRR, no significant murmur Gastrointestinal: soft, non-tender, no distention, positive bowel sounds Musculoskeletal: no edema, pulses present scrotal redness and tenderness better Neurological: non-focal, normal sensation, moves all 4 limbs Psychiatric: normal affect, A&O x 3 Skin: no rash Dx/Plan (1) Cellulitis of scrotum Code(s): N49.2 - INFLAMMATORY DISORDERS OF SCROTUM Status: Acute Comment: on IV ABx (2) AV block Code(s): I44.30 - UNSPECIFIED ATRIOVENTRICULAR BLOCK Status: Acute Comment: s/p Temp and then permanant pacemaker 07/18/17.Cardiology following (3) H/O histoplasmosis Code(s): Z86.19 - PERSONAL HISTORY OF OTHER INFECTIOUS AND PARASITIC DISEASES Status: Chronic (4) Chronic respiratory failure with hypoxia, on home O2 therapy Code(s): J96.11 - CHRONIC RESPIRATORY FAILURE WITH HYPOXIA; Z99.81 - DEPENDENCE ON SUPPLEMENTAL OXYGEN Status: Chronic (5) ESTELA on CPAP Code(s): G47.33 - OBSTRUCTIVE SLEEP APNEA (ADULT) (PEDIATRIC); Z99.89 - DEPENDENCE ON OTHER ENABLING MACHINES AND DEVICES Status: Chronic (6) Chronic a-fib Code(s): I48.2 - CHRONIC ATRIAL FIBRILLATION Status: Chronic (7) Chronic alcoholism Code(s): F10.20 - ALCOHOL DEPENDENCE, UNCOMPLICATED Status: Chronic (8) HLD (hyperlipidemia) Code(s): E78.5 - HYPERLIPIDEMIA, UNSPECIFIED Status: Chronic (9) HTN (hypertension) Code(s): I10 - ESSENTIAL (PRIMARY) HYPERTENSION Status: Chronic Qualifiers: Hypertension type: essential hypertension Qualified Code(s): I10 - Essential (primary) hypertension (10) Chronic anticoagulation Code(s): Z79.01 - RESIDENTIAL (CURRENT) USE OF ANTICOAGULANTS Status: Chronic Comment: Pradaxa on hold for procedure (11) Cardiogenic shock Code(s): R57.0 - CARDIOGENIC SHOCK Status: Resolved Comment: off of Dobutamine/dopamnie - Plan plan discussed w/ family, continue antibiotics, out of bed/ambulate, DVT proph w /SCDs cont IV ABx ,follow Cx -: HR,BP better controlled -: restart Aldactone.Still mild fluid overload.cont lasix -: anna LE in am w PO ABx. -: OP f/u for ,mild elevation of PSA * .Pt currently not on any GN coverage as levaquin Contraindicated due to AV block and Pt allergic to PCN( so Cephalosporin as well) Review of Systems - Review of Systems Constitutional: negative: fever, chills, sweats, weakness, malaise, other Respiratory: negative: Cough, Dry, Shortness of Breath, Hemoptysis, SOB with Excertion, Pleuritic Pain, Sputum, Wheezing Cardiovascular: negative: chest pain, palpitations, orthopnea, paroxysmal nocturnal dyspnea, edema, light headedness, other Gastrointestinal: negative: Nausea, Vomiting, Abdominal Pain, Diarrhea, Constipation, Melena, Hematochezia, Other Genitourinary: Other. negative: Dysuria, Frequency, Incontinence, Hematuria, Retention Musculoskeletal: negative: Neck Pain, Shoulder Pain, Arm Pain, Back Pain, Hand Pain, Leg Pain, Foot Pain, Other Skin: negative: Rash, Lesions, Channing, Bruising, Other Neurological: negative: Weakness, Numbness, Incoordination, Change in Speech, Confusion, Seizures, Other - Medications/Allergies Allergies/Adverse Reactions: Allergies Allergy/AdvReac Type Severity Reaction Status Date / Time Penicillins Allergy Verified 07/18/17 06:20 Medications: Current Medications Acetaminophen (Tylenol) 650 mg PO Q6H PRN PRN Reason: Pain 1-3 Acetaminophen/Codeine Phosphate (Tylenol #3) 1 tab PO Q4H PRN PRN Reason: Mild Pain (1-3) Last Admin: 07/18/17 21:28 Dose: 1 tab Amitriptyline HCl (Elavil) 25 mg PO HS [facility] Last Admin: 07/19/17 20:56 Dose: 25 mg Atorvastatin Calcium (Lipitor) 20 mg PO DAILY [facility] Last Admin: 07/20/17 08:34 Dose: 20 mg Atropine Sulfate (Atropine) 1 mg IVP ONE PRN PRN Reason: SYMPTOMATIC BRADYCARDIA Stop: 07/20/17 22:24 Bisacodyl (Dulcolax) 10 mg PO DAILYPRN PRN PRN Reason: Constipation Folic Acid (Folvite) 1 mg PO QPM [facility] Last Admin: 07/19/17 20:56 Dose: 1 mg Folic Acid (Folvite) 1 mg PO DAILY [facility] Last Admin: 07/20/17 08:35 Dose: 1 mg Furosemide (Lasix) 40 mg PO 0900,1400 [facility] Last Admin: 07/20/17 08:34 Dose: 40 mg Hydrocortisone Sodium Succinate (Proctozone-Hc 2.5% Cream) 0 gm TOP BID [facility] Last Admin: 07/20/17 08:33 Dose: 1 applic Vancomycin HCl 1 gm/ Device 200 mls @ 200 mls/hr IVPB 1000,2200 [facility] Last Admin: 07/20/17 11:07 Dose: 200 mls Metronidazole 500 mg/ Device 100 mls @ 100 mls/hr IVPB Q6HR [facility] Last Admin: 07/20/17 06:21 Dose: 100 mls Levetiracetam (Keppra) 500 mg PO BID [facility] Last Admin: 07/20/17 08:35 Dose: 500 mg Levothyroxine Sodium (Synthroid) 100 mcg PO 0600 [facility] Last Admin: 07/20/17 06:21 Dose: 100 mcg Multivitamins (Theragran) 1 tab PO DAILY [facility] Last Admin: 07/20/17 08:35 Dose: 1 tab Nystatin (Mycostatin Powder) 1 gm TOP BID [facility] Last Admin: 07/20/17 08:34 Dose: 1 gm Paroxetine HCl (Paxil) 40 mg PO DAILY [facility] Last Admin: 07/20/17 08:35 Dose: 40 mg Polyvinyl Alcohol/Povidone (Refresh Classic Eye Drops) 0 each EA EYE PRN PRN PRN Reason: DRY EYES Last Admin: 07/18/17 04:56 Dose: 1 each Sodium Chloride (Flush - Normal Saline) 10 ml IVF Q12HR [facility] Last Admin: 07/20/17 08:34 Dose: 10 ml Sodium Chloride (Flush - Normal Saline) 10 ml IVF PRN PRN PRN Reason: Saline Flush Last Admin: 07/19/17 12:30 Dose: 10 ml Sodium Chloride (Flush - Normal Saline) 10 ml IVF Q12HR [facility] Last Admin: 07/20/17 08:34 Dose: 10 ml Spironolactone (Aldactone) 25 mg PO BID [facility] Last Admin: 07/20/17 08:35 Dose: 25 mg Thiamine HCl (Thiamine) 100 mg PO QPM [facility] Last Admin: 07/19/17 20:56 Dose: 100 mg
--- NOTE | 2017-07-20 15:35 | PDOC.CTH ---
Cardiology Progress Note - Subjective He is back to baseline with his breathing. Feels much better. - Objective Vital Signs Temp Pulse Pulse Pulse Resp BP BP 07/20/17 12:22 74 75 131/74 168/81 H 07/20/17 11:13 97.5 F L 72 18 07/20/17 07:45 97.6 F 61 16 07/20/17 07:43 97.6 F 61 16 07/20/17 04:00 97.7 F 64 20 BP BP Pulse Ox Pulse Ox Pulse Ox 07/20/17 12:22 93 L 93 L 07/20/17 11:13 156/81 H 96 07/20/17 07:45 95 07/20/17 07:43 136/71 95 07/20/17 04:00 138/74 97 Weight 219 lb 12.8 oz 07/19/17 07/20/17 07/21/17 06:59 06:59 06:59 Intake Total 940 820 760 Output Total 575 2285 1150 Balance 365 -1465 -390 - Physical Examination General/Neuro: alert & oriented x3, NAD Neck: no JVD present Lungs: unlabored respirations Heart: RRR Abdomen: NT/ND Extremities: + edema B (trace) - Telemetry Telemetry Rhythm: NSR, v paced. - Labs Result Diagrams: 07/20/17 04:14 07/20/17 04:14 Troponin/CKMB CK-MB (CK-2) 8.8 ng/mL (0-6.6) H* 07/17/17 17:44 Troponin I 0.168 ng/mL (< 0.028) H 07/17/17 17:44 - Assessment/Plan 1. Symptomatic bradycardia. 2. Acute on chronic diastolic heart failure 3. 2-1 AV block. 4. S/P PPM placement. 5. Scrotal edema. PLAN: - Scrotal edema could represent cellulitis versus edema from heart failure. Agree with IV abx specially with having had a PPM just placed. - Switch back to home dose of PO lasix.
[2017-07-20] MEDS: Amitriptyline HCl 25 MG TAB PO SCH (20:28)
[2017-07-20 21:20] LABS: Vancomycin, Trough 14.9 ug/mL
[2017-07-21] MEDS: Levothyroxine Sodium 100 MCG TAB PO SCH (06:04)
[2017-07-21] MEDS: metroNIDAZOLE 500 MG in Premix Bag 1 BAG IVPB SCH ×2 (06:04→11:33)
[2017-07-21] MEDS: PARoxetine 20 MG TAB PO SCH (09:02)
[2017-07-21] MEDS: Furosemide 20 MG TAB PO SCH (09:02)
[2017-07-21] MEDS: Spironolactone 25 MG TAB PO SCH (09:02)
[2017-07-21] MEDS: Folic Acid 1 MG TAB PO SCH (09:02)
[2017-07-21] MEDS: Atorvastatin Calcium 20 MG TAB PO SCH (09:02)
[2017-07-21] MEDS: Multivit, Therapeutic 1 TAB PO SCH (09:02)
[2017-07-21] MEDS: levETIRAcetam 500 MG TAB PO SCH (09:02)
[2017-07-21] MEDS: Vancomycin HCl 1 GM in Premix Bag 1 BAG IVPB SCH (09:02)
[2017-07-21] MEDS: Nystatin Powder 15 GM BOT TOP SCH (09:03)
[2017-07-21] MEDS: Proctozone-HC 2.5% Cream 30 GM TUBE TOP SCH (09:03)
[2017-07-21 12:23] VITALS: BP 151/81; TEMP 97.8
--- NOTE | 2017-07-21 12:26 | DIS ---
DATE OF ADMISSION: 07/17/2017 DATE OF DISCHARGE: 07/21/2017 PRIMARY CARE PHYSICIAN: Russell Scott M.D. CONDITION AT THE TIME OF DISCHARGE: Stable and improved. DISCHARGE DIAGNOSES: 1. Complete heart block, status post temporary and then permanent pacemaker placement. 2. Scrotal cellulitis. 3. Chronic respiratory failure, on home oxygen. 4. Obstructive sleep apnea, on CPAP. 5. Chronic atrial fibrillation on chronic anticoagulation with Pradaxa. 6. Chronic alcoholism. 7. History of histoplasmosis. 8. Hypertension. 9. Dyslipidemia. 10. Cardiogenic shock secondary to #1, resolved. PROCEDURES DONE IN THE HOSPITAL: 1. Placement of a temporary pacemaker, on 07/17/2017, by Dr. Jaquez. 2. Placement of a permanent pacemaker by Dr. Roy, on 07/17/2017. IMAGING DATA: 1. Transthoracic echocardiogram, which shows an ejection fraction of 60% to 65% and diastolic dysfun ction, severe left ventricular hypertrophy and elevated right ventricular systolic pressure 48 mmHg a nd ascites. 2. Testicular ultrasound, which shows bilateral mild hydrocele, otherwise unremarkable. DISCHARGE MEDICATIONS: 1. Doxycycline 100 mg p.o. b.i.d. 2. Metronidazole 500 mg p.o. t.i.d. for 7 more days. 3. Florastor 250 mg daily for 10 days. 4. Lasix 40 mg p.o. b.i.d. 5. Pradaxa 110 mg p.o. b.i.d. 6. Folic acid 0.8 mg daily. 7. Aspirin 81 mg daily. 8. Aldactone 25 mg p.o. b.i.d. 9. Thiamine 250 mg p.o. b.i.d. 10. Amitriptyline 25 mg daily. 11. Keppra 500 mg p.o. b.i.d. 12. Synthroid 100 mcg daily. 13. Ipratropium inhaler as needed. 14. Lipitor 10 mg daily. 15. Cholecalciferol daily. 16. B12 daily. 17. Potassium 99 mg daily. 18. Multivitamin daily. DISCHARGE DISPOSITION: Home with outpatient cardiac rehabilitation. INHOUSE CONSULTATIONS: Cardiology; Dr. Servin, Dr. Roy and Dr. Jaquez. HISTORY OF PRESENTING ILLNESS: Mr. Mcdaniels is a pleasant 81-year-old male with past medical history as mentioned above, who presented to the emergency room as a transfer from [facility]. He was brought in [place] [facility] for a syncopal episode where he has urinated on himself and due to multiple fall s. He was recently admitted to our facility in May for the similar episodes as well as acute on chronic diastolic congestive heart failure. He was started on Keppra during his last hospitalizatio n with questionable seizures. This time, he presented with similar complaints of passing out. He wa s found to have a 2:1 complete AV block and was admitted to our facility for further evaluation. A c hest x-ray did not show any infiltrate and a noncontrast CT was unremarkable. His heart rate was 40 at the time of presentation. Please see admission history and physical for further detail. His anti coagulation was held and Cardiology was consulted. He did have low blood pressures upon presentation , requiring initiation of dobutamine and later dopamine drip by Cardiology. HOSPITAL COURSE: Mr. Mcdaniels was admitted to [facility], but had to be transferred to the [facility] for hypotensive and bradycardic episodes. This required emergent evaluation by Cardiology and pl acement of a temporary venous pacemaker. Later, it was replaced by permanent pacemaker by Dr. Roy. The patient tolerated the procedure very well. He was found to have scrotal swelling, redness, erythema, and testicular ultrasound was done. This w as thought secondary to be a cellulitis versus edema due to fluid overload. His diuretics were resta rted once his blood pressure was stable and he tolerated it very well. He was treated with IV antibi otic with almost complete resolution of the erythema and warmth. He is now being discharged on oral antibiotics. He was seen and examined prior to discharge. PHYSICAL EXAMINATION: This morning include; VITAL SIGNS: Temperature 97.9, pulse of 76, respirations 16, saturating 97% on room air and blood pr essure 157/81. No acute distress. Awake, alert and oriented x3, sitting up in chair. Family is at bedside. CHEST: Clear to auscultation without any wheezing, rales or rhonchi. Rhythm is regular without any murmur, rubs or gallops. ABDOMEN: Soft, nontender and nondistended. Scrotal swelling, erythema and tenderness has almost res olved. LABORATORY EXAMINATION: Blood cultures negative x2. DISCHARGE INSTRUCTIONS: At this time, he is instructed to follow up with Cardiology as an outpatient and also with his primary care physician. Outpatient cardiac rehabilitation in [place] has been se t up for him. Total time spent in the discharge of this patient was 33 minutes including [id number] interaction a nd discussion of the discharge plan with the patient and his daughter.
--- NOTE | 2017-07-21 13:54 | PDOC.CTH ---
Cardiology Progress Note - Subjective He is doing well. No new issues. - Objective Vital Signs Temp Pulse Pulse Pulse Resp BP BP 07/21/17 11:47 97.8 F 70 16 07/21/17 10:28 78 73 157/81 H 140/80 07/21/17 09:00 97.9 F 76 16 07/21/17 08:55 97.9 F 76 16 07/21/17 04:00 98.0 F 82 18 BP BP Pulse Ox Pulse Ox Pulse Ox 07/21/17 11:47 151/81 H 94 L 07/21/17 10:28 95 94 L 07/21/17 09:00 143/70 H 97 07/21/17 08:55 07/21/17 04:00 116/62 Weight 219 lb 12.8 oz 07/20/17 07/21/17 07/22/17 06:59 06:59 06:59 Intake Total 820 2480 Output Total 2285 2200 Balance -1465 280 - Physical Examination General/Neuro: alert & oriented x3, NAD Neck: no JVD present Lungs: CTA, unlabored respirations Heart: RRR Abdomen: NT/ND Extremities: + edema B (trace) - Telemetry Telemetry Rhythm: NSR, V paced - Labs Result Diagrams: 07/20/17 04:14 07/20/17 04:14 Troponin/CKMB CK-MB (CK-2) 8.8 ng/mL (0-6.6) H* 07/17/17 17:44 Troponin I 0.168 ng/mL (< 0.028) H 07/17/17 17:44 - Assessment/Plan 1. Symptomatic bradycardia. 2. Acute on chronic diastolic heart failure 3. 2-1 AV block. 4. S/P PPM placement. 5. Scrotal edema. PLAN: - May discharge home. - Follow up in 1 month.
--- NOTE | 2017-07-21 19:19 | EKG ---
Test Reason : AM EKG Blood Pressure : / mmHG Vent. Rate : 075 BPM Atrial Rate : 075 BPM P-R Int : 194 ms QRS Dur : 198 ms QT Int : 518 ms P-R-T Axes : -10 -74 087 degrees QTc Int : 578 ms Electronic ventricular pacemaker When compared with ECG of 17-JUL-2017 17:32, (Unconfirmed) Electronic ventricular pacemaker has replaced Sinus rhythm Vent. rate has increased BY 34 BPM Confirmed by MOISÉS CONCEPCION ([id number]) on 07/21/2017 7:19:05 PM Referred By: Galileo LEMUS Confirmed By:MOISÉS CONCEPCION
== END 2017-07-21 13:50 | disposition home or self-care (01) | DRG 242 ==
LOC: ERS 17:23 → IMCU/EMU 18:30 → CCU 07-18 09:28 → 2NO 07-18 17:22
PROVIDERS: ADMIT Internal Medicine; ATTEND Internal Medicine
PROC: 0JH606Z Insertion of Pacemaker, Dual Chamber into Chest Subcutaneous Tissue and Fascia, Open Approach (ICD-10-PCS; principal; 2017-07-18)
PROC: 02H63JZ Insertion of Pacemaker Lead into Right Atrium, Percutaneous Approach (ICD-10-PCS; 2017-07-18)
PROC: 02HK3JZ Insertion of Pacemaker Lead into Right Ventricle, Percutaneous Approach (ICD-10-PCS; 2017-07-18)
DX: I44.2 Atrioventricular block, complete (principal); I50.33 Acute on chronic diastolic (congestive) heart failure; R57.0 Cardiogenic shock; J96.11 Chronic respiratory failure with hypoxia; B39.9 Histoplasmosis, unspecified; I95.9 Hypotension, unspecified; Z99.81 Dependence on supplemental oxygen; I11.0 Hypertensive heart disease with heart failure; E11.9 Type 2 diabetes mellitus without complications; I48.0 Paroxysmal atrial fibrillation; I48.2 Chronic atrial fibrillation; N49.2 Inflammatory disorders of scrotum; N50.89 Other specified disorders of the male genital organs; Z86.19 Personal history of other infectious and parasitic diseases; G47.33 Obstructive sleep apnea (adult) (pediatric); Z99.89 Dependence on other enabling machines and devices; F10.20 Alcohol dependence, uncomplicated; E78.5 Hyperlipidemia, unspecified; Z79.01 Long term (current) use of anticoagulants; R97.20 Elevated prostate specific antigen [PSA]; I49.8 Other specified cardiac arrhythmias; E03.9 Hypothyroidism, unspecified; Z86.61 Personal history of infections of the central nervous system; I34.0 Nonrheumatic mitral (valve) insufficiency; N43.3 Hydrocele, unspecified; I44.7 Left bundle-branch block, unspecified
CPT/HCPCS: 33208; 33210; 36415; 71045; 76870; 80048; 80076; 80202; 83735; 83880; 84443; 85025; 85610; 85730; 87040; 93005; 93010; 93306; 93798; 96365; 96366; A4216; C1769; C1785; C1898; C9399; G0103; J0690; J1250; J1644; J1940; J1956; J2001; J2250; J3370; J3480; J3490; J7050; J7070

== ENCOUNTER 2018-02-28 13:32 | Observation (INO) | payer MEDICARE ==
[2018-02-28 15:24] LABS: INR-International Normal Ratio 1.2; PTT 43.9 SEC (22.9-36.1); Prothrombin Time 14.9 SEC (12.0-14.7)
[2018-02-28 15:45] LABS: Troponin I 0.208 ng/mL (< 0.028)
--- NOTE | 2018-02-28 15:58 | HP-2 ---
DATE OF ADMISSION: 02/28/2018 REQUESTING PHYSICIAN: Darrion Vázquez M.D.. ATTENDING PHYSICIAN: Dr. Shepherd. CONSULTATIONS: Neurosurgery, Dr. Shah. HISTORY OF PRESENT ILLNESS: The patient is an 82-year-old man who earlier this morning, wh ich he believes was between midnight and 1:00 a.m. got up to go to the bathroom and on his way back f rom the bathroom, fell. He is unsure of what caused him to fall. He is unclear of the details surro unding his fall. He denied chest pain, shortness of breath, racing heart or any syncopal type episod es. He fell, was able to get himself back up, then today when his home health team was there and his family, he told him that he had fallen because of his blood thinner use, knew that he needed to get evaluated in the emergency department so they took him to the Emergency Department in [place] where he underwent evaluation and examination and was noted to have a very tiny subdural hematoma, at which time he was transferred to our facility for evaluation by Neurosurgery. The patient at time of pres entation to the Emergency Department in [place], he was alert and oriented and his Ubal[place] coma scal e is 15. He has remained the same here. ALLERGIES: PENICILLIN. CURRENT MEDICATIONS: Aspirin, atorvastatin, levothyroxine, Pradaxa, spironolactone, folic acid, Lasi x, thiamine, amitriptyline, doxycycline, ipratropium bromide. PAST MEDICAL HISTORY: Coronary artery disease, congestive heart failure, atrial fibrillation, Pradax a use, hyperlipidemia, hypertension, depression. PAST SURGICAL HISTORY: Cardiac pacemaker placement, inguinal hernia replacement repair, bilateral hi p replacement, and left heel surgery. SOCIAL HISTORY: Patient is currently retired. He lives at home with his daughter and grandson. He denies any smoking or drug use history, but admits to drinking 5-8 shots of whiskey per day. FAMILY HISTORY: Hypertension. REVIEW OF SYSTEMS: Ten-point review of systems negative, unless otherwise stated. PHYSICAL EXAMINATION: VITAL SIGNS: Blood pressure 120/78, heart rate 84, respirations 18, oxygen saturation 94% on room ai r, temperature is 98.2. GENERAL: The patient is resting comfortably in the ER bed. He is awake, alert, and oriented x3. [place] coma scale is 15. HEENT: Head is normocephalic, atraumatic. Eyes: Extraocular motion intact. PERRLA bilaterally. E ars are atraumatic with discharge. Nose: Nares are clear. The patient does have an abrasion on the bridge of his nose. Oropharynx is clear. NECK: Nontender. Trachea is midline. No JVD. CHEST: Clear to auscultation with good inspiratory and expiratory effort. HEART: Regular rate and rhythm. ABDOMEN: Soft, flat, nontender with active bowel sounds. Pelvis is stable. EXTREMITIES: Neurovascularly intact x4. BACK: Atraumatic and nontender. LABORATORY DATA: White blood cell count 7.9, hemoglobin 14.6, hematocrit 44.2, platelets 239. Sodiu m 140, potassium 2.6, chloride 97, CO2 of 31, BUN is 27, creatinine 1.22, glucose 81. LFTs are unrem arkable. CK 221, CK-MB 7.5, troponin 0.180. Coags are pending. RADIOGRAPHIC FINDINGS: CT of the brain without contrast shows a very tiny focus of acute hemorrhage in the left parafalcine subdural space. No mass effects, atrophy and chronic white matter ischemic c hanges. No calvarial fractures noted. CT of the C-spine without contrast shows no acute fracture of the cervical spine. ASSESSMENT AND PLAN: 1. Status post fall with delayed presentation. 2. Small subdural hematoma. 3. Abrasion to the bridge of nose. 4. Extensive alcohol history. 5. History of coronary artery disease. 6. History of atrial fibrillation. 7. History of pacemaker placement. 8. History of hypertension. 9. History of congestive heart failure. Plan will be to admit the patient to the surgical floor. Serial exams. We will discuss with Neurosu julia if and when a repeat head CT in light of this being 12 hours status post his fall. We will all ow them to tell us if he needs a repeat head CT. We will continue his home medications, minus his Pr adaxa and aspirin. The patient will have pulmonary toilet, gastritis, and mechanical VTE prophylaxis . The evaluation, examination, laboratory and radiographic findings will be discussed with Dr. Monique briseno after this dictation.
[2018-02-28] MEDS ORDERED: Acetaminophen 500 MG TAB ONE (16:00)
[2018-02-28] MEDS ORDERED: hydrALAZINE 20 MG/ML VIAL SLOW IVP PRN (17:31)
[2018-02-28] MEDS ORDERED: traMADol HCl 50 MG TAB PO PRN ×2 (17:31)
[2018-02-28] MEDS ORDERED: Dextrose 5% in Water 1,000 ML IV PRN (17:31)
[2018-02-28] MEDS ORDERED: Dextrose 50% Abboject 50 ML SYRINGE SLOW IVP PRN (17:31)
[2018-02-28] MEDS ORDERED: Ondansetron PF 4 MG/2 ML Vial IVP PRN (17:31)
[2018-02-28] MEDS ORDERED: Ondansetron ODT 4 MG TAB PO PRN (17:31)
[2018-02-28] MEDS ORDERED: Communication Order-Pharmacy FS SCH (17:45)
[2018-02-28] MEDS ORDERED: Acetaminophen 1,000 MG in Premix Bag 1 BAG IVPB SCH (17:45)
[2018-02-28 18:24] VITALS: BMI 26.8
--- NOTE | 2018-02-28 20:19 | CON ---
DATE OF CONSULTATION: 02/28/2018 Zaheer Andujar PA-C dictating for Joaquin Shah MD This is a 30-minute initial patient evaluation in which greater than 50% of the exam was spent counse ling and coordinating patient's care. Remainder of the exam was spent in review of patient's medical records and appropriate imaging studies. CHIEF COMPLAINT: Status post fall with questionable right parafalcine subdural hematoma. HISTORY OF PRESENT ILLNESS: Mr. Mcdaniels is a pleasant 82-year-old male who presents to [facility] for the above complaints. Apparently, he fell around midnight or 1 a.m. yesterday and states he hit the back of his head. He complains of some headache today but notes that he has a 6-ye ar history of headaches. He also is on Pradaxa for history of atrial fibrillation and he states stro kes as well as heart conditions. He has not had any recent stent placement. He states he lives at [facility] with his daughter. Falls are somewhat typical for him, but he states he did not feel especially off balance today. On review of patient's head CT from [place] notes a questionable right parafalci ne subdural hematoma. Neurosurgery is asked to consult regarding this. Review of patient's cervical spine CT is negative for fracture. PHYSICAL EXAMINATION: The patient is awake, alert, and appropriate. He is slightly delayed in his r esponse, though he is appropriate. He is oriented to person and time, but not to place. GCS current ly is 15. He follows commands equally in all four extremities and appears to have good strength bila terally in all 4 extremities. He has no horizontal nystagmus. He has no significant dysmetria on ex am. He has no pronator drift. Pupils are equal, round, and reactive bilaterally. He has no worriso me tenderness to palpation in the cervical spine and does not complain of neck pain. IMPRESSION: Status post fall with possible parafalcine subdural hematoma. PLAN: I discussed the patient's case and imaging with Dr. Shah. At this time, the patient has bee n admitted by our trauma colleagues and we will follow up on a repeat head CT in the morning. Should this be stable, patient should be likely ready for discharge. Otherwise, the patient's fall was mor e than 12 hours ago, so he appears to be stable at this time, so we will arrange for a 4 q-hour neuro checks. He may eat. Would like his systolic blood pressure to remain less than 160 and his head of bed elevated at 30 degrees. We will hold his Pradaxa overnight. Please call with any changes in anish cook's neurologic status. Otherwise, we will follow back on his head CT. I should note that the anish cook does not require any type of cervical collar. He has no fracture and no complaints of neck carolee n.
[2018-02-28 21:17] LABS: Troponin I 0.232 ng/mL (< 0.028)
[2018-02-28] MEDS: Oxazepam 10 MG CAP PO SCH (22:01)
[2018-02-28] MEDS: Famotidine 20 MG TAB PO SCH (22:03)
[2018-02-28] MEDS: Acetaminophen 500 MG TAB PO SCH (22:04)
[2018-03-01] MEDS: Acetaminophen 500 MG TAB PO SCH ×4 (01:26→12:56)
[2018-03-01] MEDS: Oxazepam 10 MG CAP PO SCH (05:14)
[2018-03-01 05:45] LABS: #Basophils 0.1 thou/uL (0.0-0.2); #Eosinphils 0.4 thou/uL (0.0-0.7); #Lymphocytes 1.3 thou/uL (1.20-3.40); #Monocytes 0.6 thou/uL (0.11-0.59); #Neutrophils 4.4 thou/uL (1.40-6.50); %Basophils 1.3 % (0.0-1.0); %Eosinophils 5.2 % (0.0-10.0); %Lymphocytes 19.7 % (21.0-51.0); %Monocytes 8.9 % (0.0-10.0); %Neutrophils 64.9 % (42.0-75.0); Hemoglobin 13.3 g/dL (14.0-18.0); Mean Corpuscular HGB CONC 33.5 g/dL (32.0-36.0); Mean Corpuscular Hemoglobin 32.2 pg (27.0-31.0); Mean Corpuscular Volume 96.1 fL (78.0-98.0); Mean Platelet Volume 6.6 fL (7.4-10.4); Platelet Count 211 thou/uL (130-400); RBC Distribution Width 13.8 % (11.5-14.5); Red Blood Cell (RBC) Count 4.14 mill/uL (4.70-6.10); White Blood Cell (WBC) Count 6.8 thou/uL (4.8-10.8)
[2018-03-01 06:05] LABS: Anion Gap 12 mmol/L (10-20); BUN (Urea Nitrogen) 25 mg/dL (8.4-25.7); Calc. Creatinine Clearance 61 mL/min (70-130); Calcium 9.1 mg/dL (7.8-10.44); Carbon Dioxide 32 mmol/L (23-31); Chloride 99 mmol/L (98-107); Estimated GFR-MDRD 57; Glucose 103 mg/dL (83-110); Sodium 140 mmol/L (136-145)
[2018-03-01 06:13] LABS: Potassium 2.8 mmol/L (3.5-5.1)
[2018-03-01] MEDS ORDERED: Potassium Chloride 20 MEQ TAB PO SCH (06:45)
[2018-03-01 08:18] VITALS: BP 124/72; TEMP 97.6
[2018-03-01] MEDS: Famotidine 20 MG TAB PO SCH (08:21)
--- NOTE | 2018-03-01 08:26 | CT ---
BRAIN CT WITHOUT IV CONTRAST: HISTORY: An 82-year-old male with a history of a fall status post fall/injury. Followup trace subdural hemato ma. COMPARISON: 02/28/2018. FINDINGS: Again noted is a very small patchy of increased attenuation density just to the left of the anterior falx, evidence for a small subdural hemorrhage. No significant new process. Depending on concern, c onsideration for a followup brain MRI might be of benefit for further assessment. POS: [facility]
[2018-03-01] MEDS ORDERED: Folic Acid 1 MG TAB PO SCH (09:00)
--- NOTE | 2018-03-01 16:11 | PRG ---
DATE OF SERVICE: 03/01/2018 This is a 30-minute initial hospital visit note, in which 30 minutes were spent in review of imaging record, evaluation, examination of patient, and formulation of a plan. Greater than 50% of the time was spent in counseling on Claudio Mcdaniels. Mr. Mcdaniels is an 82-year-old man who was found to hav e after a fall, left-sided very small traumatic subarachnoid hemorrhage on repeat head CT, this is a demonstrated resolution. He is on Pradaxa, and we have discontinued this. We will plan for dismissa l at any point when appropriate, although I should note that we will arrange for followup in our clin ic with a repeat head CT in 1 month, off of anticoagulants. Neurologically, he is at his baseline, f ollowing commands, conversant and appropriate.
--- NOTE | 2018-03-02 00:24 | DIS ---
DATE OF ADMISSION: 02/28/2018 DATE OF DISCHARGE: 03/01/2018 ADMISSION DIAGNOSES: 1. Status post ground level fall with delayed presentation. 2. Small subdural hematoma. 3. Abrasion to bridge of nose. 4. Extensive alcohol history. 5. History of coronary artery disease. 6. History of atrial fibrillation. 7. History of pacemaker placement. 8. History of hypertension. 9. History of congestive heart failure. CONSULTATIONS: Neurosurgery, Dr. Shah. PROCEDURES: None. SUMMARY: The patient is an 82-year-old man who approximately 12 hours prior to presenting to the emergency department in [facility]. The patient reported a fall at home. He went to bed in the morning. 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 The patient will be admitted to the s urgical floor overnight for serial exams and repeat head CT in the morning. This morning, he was exa mined by Dr. Shephedr and myself and noted to still have all of his faculties, he was alert and orient ed x3. [place] coma scale is 15. The patient had a slight headache. He was tolerating a diet and a lready been ambulating. The patient will be discharged to home. He will follow up with Neurosurgery in 2 to 3 weeks, sooner as needed. The patient was advised to hold his Pradaxa and aspirin until he was seen by Neurosurgery. The patient may follow up with the trauma clinic as needed.
== END 2018-03-01 14:05 | disposition home or self-care (01) ==
LOC: ERS 13:32 → SURG A 14:13
PROVIDERS: ADMIT Surgery; ATTEND Surgery
DX: S06.5X9A Traumatic subdural hemorrhage with loss of consciousness of unspecified duration, initial encounter (principal); S00.31XA Abrasion of nose, initial encounter; I25.10 Atherosclerotic heart disease of native coronary artery without angina pectoris; I48.91 Unspecified atrial fibrillation; E78.5 Hyperlipidemia, unspecified; F32.9 Major depressive disorder, single episode, unspecified; I11.0 Hypertensive heart disease with heart failure; I50.9 Heart failure, unspecified; Z79.01 Long term (current) use of anticoagulants; Z79.82 Long term (current) use of aspirin; Z79.899 Other long term (current) drug therapy; Z88.0 Allergy status to penicillin; Z95.0 Presence of cardiac pacemaker; W18.30XA Fall on same level, unspecified, initial encounter; Y92.009 Unspecified place in unspecified non-institutional (private) residence as the place of occurrence of the external cause
CPT/HCPCS: 70450; 80048; 84484; 85025; 85610; 85730; 96374; 97139; 99285; G0378 ×2; 36415; G0390; J0131

== ENCOUNTER 2018-03-04 02:59 | Observation (INO) | payer MEDICARE ==
[2018-03-04] MEDS ORDERED: Lidocaine 1% w/Epinephrine 1:100K 20 ML VIAL ONE (03:52)
[2018-03-04 05:28] LABS: #Basophils 0.1 thou/uL (0.0-0.2); #Eosinphils 0.2 thou/uL (0.0-0.7); #Lymphocytes 0.9 thou/uL (1.20-3.40); #Monocytes 0.6 thou/uL (0.11-0.59); #Neutrophils 8.4 thou/uL (1.40-6.50); %Basophils 0.5 % (0.0-1.0); %Eosinophils 1.8 % (0.0-10.0); %Lymphocytes 9.2 % (21.0-51.0); %Monocytes 5.8 % (0.0-10.0); %Neutrophils 82.7 % (42.0-75.0); Hemoglobin 13.7 g/dL (14.0-18.0); Mean Corpuscular HGB CONC 33.8 g/dL (32.0-36.0); Mean Corpuscular Hemoglobin 32.5 pg (27.0-31.0); Mean Corpuscular Volume 96.2 fL (78.0-98.0); Mean Platelet Volume 7.7 fL (7.4-10.4); Platelet Count 220 thou/uL (130-400); RBC Distribution Width 14.3 % (11.5-14.5); Red Blood Cell (RBC) Count 4.21 mill/uL (4.70-6.10); White Blood Cell (WBC) Count 10.2 thou/uL (4.8-10.8)
[2018-03-04 05:31] LABS: Prothrombin Time 13.3 SEC (12.0-14.7)
[2018-03-04 05:32] LABS: PTT 34.3 SEC (22.9-36.1)
[2018-03-04 05:33] LABS: ALT (SGPT) 17 U/L (8-55); AST (SGOT) 25 U/L (5-34); Albumin 3.7 g/dL (3.4-4.8); Alkaline Phosphatase 114 U/L (40-150); Anion Gap 13 mmol/L (10-20); BUN (Urea Nitrogen) 22 mg/dL (8.4-25.7); Bilirubin, Total 0.6 mg/dL (0.2-1.2); Calc. Creatinine Clearance 0 mL/min (70-130); Carbon Dioxide 28 mmol/L (23-31); Chloride 100 mmol/L (98-107); Estimated GFR-MDRD 54; Glucose 101 mg/dL (83-110); Protein, Total 6.7 g/dL (5.8-8.1); Sodium 138 mmol/L (136-145)
[2018-03-04 05:35] LABS: Potassium 2.9 mmol/L (3.5-5.1)
[2018-03-04] MEDS ORDERED: Potassium Chloride 20 MEQ TAB ONE (05:35)
[2018-03-04] MEDS ORDERED: Ondansetron ODT 4 MG TAB PO PRN (05:38)
[2018-03-04] MEDS ORDERED: hydrALAZINE 20 MG/ML VIAL SLOW IVP PRN (05:38)
[2018-03-04] MEDS ORDERED: Ondansetron PF 4 MG/2 ML Vial IVP PRN (05:38)
[2018-03-04] MEDS ORDERED: Dextrose 50% Abboject 50 ML SYRINGE SLOW IVP PRN (05:38)
[2018-03-04] MEDS ORDERED: Dextrose 5% in Water 1,000 ML IV PRN (05:38)
[2018-03-04 05:57] LABS: Magnesium 2.3 mg/dL (1.6-2.6); Phosphorus 2.5 mg/dL (2.3-4.7)
[2018-03-04] MEDS ORDERED: Levothyroxine Sodium 100 MCG TAB PO SCH (06:15)
[2018-03-04] MEDS ORDERED: Oxazepam 10 MG CAP PO SCH (06:15)
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
[2018-03-04] MEDS: Cyanocobalamin (Vitamin B-12) 1,000 MCG TAB PO SCH ×2 (08:53→21:55)
[2018-03-04] MEDS: Polyethylene Glycol 3350 17 GM Packet PO SCH (08:53)
[2018-03-04] MEDS: Saccharomyces boulardii 250 MG CAP PO SCH (08:54)
[2018-03-04] MEDS: Folic Acid 1 MG TAB PO SCH (09:43)
[2018-03-04] MEDS: Famotidine 20 MG TAB PO SCH (09:43)
[2018-03-04] MEDS: Senokot S 8.6-50 MG TAB PO SCH ×2 (09:43→21:54)
[2018-03-04 10:17] VITALS: BMI 24.3
[2018-03-04 10:35] LABS: Potassium 3.3 mmol/L (3.5-5.1)
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
[2018-03-04] MEDS ORDERED: HYDROcodone/Acetaminophen 5/325 mg Tablet PO SCH (12:45)
[2018-03-04] MEDS ORDERED: HYDROcodone/Acetaminophen 5/325 mg Tablet ONE ×2 (12:52)
[2018-03-04] MEDS: Oxazepam 10 MG CAP PO SCH ×2 (15:25→23:02)
[2018-03-04] MEDS ORDERED: HYDROcodone/Acetaminophen 5/325 mg Tablet PO PRN (19:51)
[2018-03-04] MEDS: HYDROcodone/Acetaminophen 5/325 mg Tablet PO PRN (20:57)
[2018-03-04] MEDS ORDERED: CRANBERRY 500 MG PO SCH (21:00)
[2018-03-04] MEDS: Atorvastatin Calcium 10 MG TAB PO SCH (21:55)
[2018-03-04] MEDS: Amitriptyline HCl 100 MG TAB PO SCH (21:58)
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
[2018-03-05 06:33] LABS: #Eosinphils 0.4 thou/uL (0.0-0.7); #Lymphocytes 1.2 thou/uL (1.20-3.40); #Monocytes 0.6 thou/uL (0.11-0.59); #Neutrophils 5.7 thou/uL (1.40-6.50); %Basophils 0.4 % (0.0-1.0); %Eosinophils 4.8 % (0.0-10.0); %Lymphocytes 15.1 % (21.0-51.0); %Monocytes 7.5 % (0.0-10.0); %Neutrophils 72.2 % (42.0-75.0); Hemoglobin 12.7 g/dL (14.0-18.0); Mean Corpuscular HGB CONC 32.9 g/dL (32.0-36.0); Mean Corpuscular Hemoglobin 32.3 pg (27.0-31.0); Mean Corpuscular Volume 98.2 fL (78.0-98.0); Mean Platelet Volume 6.9 fL (7.4-10.4); Platelet Count 191 thou/uL (130-400); RBC Distribution Width 14.2 % (11.5-14.5); Red Blood Cell (RBC) Count 3.93 mill/uL (4.70-6.10); White Blood Cell (WBC) Count 7.9 thou/uL (4.8-10.8)
[2018-03-05] MEDS: Levothyroxine Sodium 100 MCG TAB PO SCH (06:42)
[2018-03-05 06:44] LABS: Anion Gap 9 mmol/L (10-20); BUN (Urea Nitrogen) 18 mg/dL (8.4-25.7); Calc. Creatinine Clearance 65 mL/min (70-130); Calcium 9.2 mg/dL (7.8-10.44); Carbon Dioxide 32 mmol/L (23-31); Chloride 100 mmol/L (98-107); Estimated GFR-MDRD 68; Glucose 117 mg/dL (83-110); Magnesium 2.2 mg/dL (1.6-2.6); Phosphorus 2.8 mg/dL (2.3-4.7); Potassium 3.8 mmol/L (3.5-5.1); Sodium 137 mmol/L (136-145)
--- NOTE | 2018-03-05 08:30 | CT ---
PRELIMINARY REPORT/[facility]/EMERGENTY AFTER-HOURS PROCEDURE CT Head Without Intravenous Contrast EXAM DATE/TIME: 03/05/2018 4:39 AM CLINICAL HISTORY: 82 years old, male; Condition or disease; Brain lesion; Patient HX: Repeat eval sdh TECHNIQUE: Axial computed tomography images of the head/brain without intravenous contrast. COMPARISON: CT Brain WO Con 03/04/2018 3:23 AM FINDINGS: Brain: As before, small amount of subdural blood along the anterior aspect of the falx, and adjacent to the right frontal lobe. No significant progression in the short interval, there may be slightly le ss blood visible compared with the prior exam. No definite new hemorrhage in the interval. No significant midline shift or mass effect. There is mild, relatively symmetrical decreased attenuation in the periventricular white matter, like ly from microvascular disease. No definite acute infarct by CT. Ventricles: Ventricle size is normal for age. Bones/joints: No definite acute skull fracture. Sinuses: Included paranasal sinuses are essentially clear. Mastoid air cells: No significant acute finding. IMPRESSION: 1. Small amount of subdural blood again seen along the anterior aspect of the falx. No significant progression in the short interval. 2. No definite new hemorrhage in the interval. 3. No significant midline shift or mass effect. 4. Changes of microvascular disease. Thank you for allowing us to participate in the care of your patient. Dictated and Authenticated by: Everardo Saldana MD 03/05/2018 5:09 AM Central Time ([place] & [place]) FINAL REPORT CT BRAIN WITHOUT CONTRAST: Date: 03/05/18 FINDINGS/IMPRESSION: I agree with the preliminary report given by Sugey. POS: [facility]
[2018-03-05] MEDS: Polyethylene Glycol 3350 17 GM Packet PO SCH (08:36)
[2018-03-05] MEDS: Oxazepam 10 MG CAP PO SCH ×3 (08:36→22:37)
[2018-03-05] MEDS: Saccharomyces boulardii 250 MG CAP PO SCH (08:36)
[2018-03-05] MEDS: Senokot S 8.6-50 MG TAB PO SCH ×2 (08:36→22:37)
[2018-03-05] MEDS: HYDROcodone/Acetaminophen 5/325 mg Tablet PO PRN (08:37)
[2018-03-05] MEDS: Folic Acid 1 MG TAB PO SCH (08:38)
[2018-03-05] MEDS: Famotidine 20 MG TAB PO SCH (08:38)
[2018-03-05] MEDS: Cyanocobalamin (Vitamin B-12) 1,000 MCG TAB PO SCH ×2 (08:38→22:36)
[2018-03-05] MEDS ORDERED: Cyclobenzaprine 10 MG TAB PO PRN (09:22)
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
[2018-03-05] MEDS: Amitriptyline HCl 100 MG TAB PO SCH (22:36)
[2018-03-05] MEDS: Atorvastatin Calcium 10 MG TAB PO SCH (22:36)
[2018-03-06] MEDS: Levothyroxine Sodium 100 MCG TAB PO SCH (07:01)
[2018-03-06] MEDS: Oxazepam 10 MG CAP PO SCH (07:15)
[2018-03-06] MEDS: Polyethylene Glycol 3350 17 GM Packet PO SCH (09:17)
[2018-03-06] MEDS: Saccharomyces boulardii 250 MG CAP PO SCH (09:18)
[2018-03-06] MEDS: Senokot S 8.6-50 MG TAB PO SCH (09:18)
[2018-03-06] MEDS: Cyanocobalamin (Vitamin B-12) 1,000 MCG TAB PO SCH (09:18)
[2018-03-06] MEDS: Famotidine 20 MG TAB PO SCH (09:18)
[2018-03-06] MEDS: Folic Acid 1 MG TAB PO SCH (09:18)
[2018-03-06 11:45] VITALS: BP 130/70; TEMP 97.9
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
[2018-03-06] MEDS: HYDROcodone/Acetaminophen 5/325 mg Tablet PO PRN (13:15)
== END 2018-03-06 13:39 | disposition home or self-care (01) ==
LOC: ERS 02:59 → ERHOLD 05:10 → 2SE 18:10
PROVIDERS: ADMIT Specialist; ATTEND Specialist
DX: S06.5X9A Traumatic subdural hemorrhage with loss of consciousness of unspecified duration, initial encounter (principal); S01.01XA Laceration without foreign body of scalp, initial encounter; I25.10 Atherosclerotic heart disease of native coronary artery without angina pectoris; I48.91 Unspecified atrial fibrillation; I11.0 Hypertensive heart disease with heart failure; I50.9 Heart failure, unspecified; E78.5 Hyperlipidemia, unspecified; F32.9 Major depressive disorder, single episode, unspecified; F10.10 Alcohol abuse, uncomplicated; E87.6 Hypokalemia; E03.9 Hypothyroidism, unspecified; Z79.899 Other long term (current) drug therapy; Z95.0 Presence of cardiac pacemaker; Z88.0 Allergy status to penicillin; Y00.XXXA Assault by blunt object, initial encounter; W01.198A Fall on same level from slipping, tripping and stumbling with subsequent striking against other object, initial encounter
CPT/HCPCS: 12004; 70450 ×2; 72125; 80048; 80053; 80307; 82962; 83735 ×2; 84100 ×2; 84132; 85025 ×2; 85610; 85730; 94760; 97116 ×2; 97139 ×3; 97530 ×3; 97535; 99285; G0378 ×2; G8978; G8979; G8987; G8988; 36415; 36416; G0390; J2001

== ENCOUNTER 2018-03-20 09:33 | Outpatient (CLI) | payer MEDICARE ==
--- NOTE | 2018-03-20 10:51 | CT ---
CT WITHOUT CONTRAST: COMPARISON: 03/05/2018. FINDINGS: Redemonstration of a hypodense collection along the right frontotemporal and parietal convexity measu ring approximately 1.4 cm. Subacute subdural hematoma is favored. No significant sulcal effacement or mass effect upon the right cerebrum. There is no significant midline shift. Basilar cisterns are patent. Cortical olivares-white matter differentiation is preserved. No evidence of hydrocephalus. Calvarium is intact. Adequate aeration of the sinuses and mastoid air cells. IMPRESSION: Subacute right extraaxial collection, subdural in location. Continued surveillance is recommended. When compared to the previous examination, this right subdural collection has occurred since the prev ious exam. Results of the study discussed with Dr. Pablo Ramos's PA 03/20/2018 at 11:10 a.m. JOCELYNE SIMPSON POS: [facility]AYANT
== END 2018-03-20 09:34 | disposition home or self-care (01) ==
LOC: TBSIIMAG 09:33
PROVIDERS: ATTEND Surgery
DX: S06.5X0A Traumatic subdural hemorrhage without loss of consciousness, initial encounter (principal)
CPT/HCPCS: 70450

== ENCOUNTER 2018-04-21 08:42 | Day surgery (SDC) | payer MEDICARE ==
[2018-04-14 10:39] VITALS: BMI 25.7
[~2018-04-21 08:42] MED LIST: Prevnar 13-Val Conj/PF 0.5 ML SYRINGE IM ONE
[2018-04-21 10:33] VITALS: BP 152/93; TEMP 98.3
--- NOTE | 2018-04-21 10:40 | CT ---
HEAD CT NONCONTRAST: Comparison: 03-20-18 Indication: Headache, dizziness. FINDINGS: There is mild parenchymal volume loss. The ventricular system is age appropriate in size. No intracra nial hemorrhage, mass effect, or midline shift. Mild chronic ischemic disease of the cerebral white m atter is present. IMPRESSION: 1. No acute intracranial abnormalities. 2. Mild chronic ischemic disease. POS: [facility]
--- NOTE | 2018-04-21 11:20 | RAD ---
LUMBAR SPINE FOUR VIEWS: History: Low back pain. FINDINGS: There are five lumbar type vertebrae. Pedicles are intact. Prominent leftward convex rotatory scoliot ic curvature. Compression of the L4 superior and inferior endplate is apparent with loss of height centrally by tony roximately 50%. There is cortical disruption of the superior endplate. Minimal retropulsion. Limited movement upon flexion and extension. Minimal spondylolisthesis at the L4-5 level is unchanged . Osteophytosis throughout the vertebral bodies and facets. Calcification at the T11-12 disc. Osseous structures are demineralized. Calcification over the arterial structures. Bilateral hip prostheses p artially visualized. IMPRESSION: 1. L4 compression fracture. Age is not clear, although there are some characteristics to suggest that this is an acute injury. 2. Minimal retropulsion. Prominent degenerative changes throughout the lumbar spine. 3. Prominent degenerative changes throughout the lumbar spine. 4. Osteoporosis. 5. Atherosclerosis. POS: [facility]
--- NOTE | 2018-04-21 12:27 | RAD ---
FIVE VIEWS CERVICAL SPINE: History: Radiculopathy. Comparison: None. FINDINGS: Lateral neutral, lateral flexion, lateral extension, and AP open mouth view of the cervical spine are submitted for interpretation. There is no prevertebral soft tissue swelling. There are preservation of cervical spine vertebral bod y height from C1 through C7-T1 disc space. No fracture. Predental space is normal. There does appear to be some degenerative change at the anterior atlantoaxial articulation. There is mild loss of disc space height osteophyte formation at C4-5. Moderate loss of disc space hei ght and osteophyte formation at C5-6. There is severe loss of disc space height with what appear to b e near complete fusion of the disc space at C6-7. In the neutral position, there is no significant sp ondylolisthesis. Upon flexion/extension, no abnormal alignment. In the AP projection, facet hypertrophy is noted. On the open mouth projection, evaluation of the odo ntoid process is limited. Lateral masses of C1 and C2 articulate appropriately. IMPRESSION: Degenerative changes of the cervical spine as above. POS: [facility]
--- NOTE | 2018-04-21 13:18 | CT ---
CT LUMBAR SPINE WITHOUT CONTRAST: HISTORY: Lumbar radiculopathy. The patient was scheduled for a lumbar myelogram. Abnormal lumbar spine radio graph. COMPARISON: Lumbar spine radiograph from 04/21/2018 at 11:37 a.m. FINDINGS: There is a compression fracture involving the L4 vertebral body. There is moderate loss of vertebral body height with mild retropulsion. Multiple fracture planes without sclerotic margins are noted. There is a small amount of paraspinal hematoma and edema. There appears to be an incompletely evaluated, loculated, right-sided pleural effusion. Adjacent sma ll components of pleural fluid may be present. Adjacent parenchymal changes in the right lung base a re noted. The visualized solid organs are unremarkable. There are presumed to be parapelvic cysts in the left renal pelvis. Mild pancreatic atrophy. Atherosclerosis of a nonaneurysmal aorta. Limited evaluation of the contents of the central spinal canal and neural foramina due to technique. The visualized bony pelvis is intact. T11-T12: Calcification of the T11-T12 disks. No significant central canal stenosis or foraminal cee rowing. T12-L1: No high-grade central canal stenosis or high-grade foraminal narrowing. L1-L2: No high-grade central canal stenosis or high-grade foraminal narrowing. L2-L3: Generalized disk bulge, ligamentum flavum thickening, and facet hypertrophy result in mild ce ntral canal stenosis. Mild right and mild to moderate left foraminal narrowing. L3-L4: Generalized disk bulge, ligamentum flavum thickening, and facet hypertrophy result in moderat e to severe central canal stenosis. Moderate right and mild to moderate left foraminal narrowing. L4 VERTEBRAL BODY: Moderate central canal stenosis due to retropulsion. L4-L5: Vacuum disk phenomenon. Broad-based disk bulge, ligamentum flavum thickening, and facet hype rtrophy result in severe central canal stenosis. Of note, there is significant bilateral ligamentum flavum thickening. Moderate to severe bilateral neural foraminal narrowing. L5-S1: Broad-based disk bulge, ligamentum flavum thickening, and facet hypertrophy result in at leas t moderate central canal stenosis. There is severe bilateral foraminal narrowing. IMPRESSION: 1. Degenerative changes of the lumbar spine, as above. 2. Acute compression fracture at L4. 3. There is significant central canal stenosis at L4-L5 and at L5-S1. 4. Incompletely evaluated loculated fluid in the right pleural space. Better interrogation with a n oncontrast chest CT may be beneficial. The results of the study were discussed with Zaheer Andujar PA-C on 04/21/2018 at 11:41 a.m. JOCELYNE SIMPSON POS: [facility]
== END 2018-04-21 12:40 | disposition home or self-care (01) ==
LOC: RAD 08:42
PROVIDERS: ATTEND Physician Assistant Surgical
DX: M47.22 Other spondylosis with radiculopathy, cervical region (principal); M48.061 Spinal stenosis, lumbar region without neurogenic claudication; M51.16 Intervertebral disc disorders with radiculopathy, lumbar region; S32.049A Unspecified fracture of fourth lumbar vertebra, initial encounter for closed fracture; I70.0 Atherosclerosis of aorta; M81.0 Age-related osteoporosis without current pathological fracture; Z88.0 Allergy status to penicillin; Z79.899 Other long term (current) drug therapy
CPT/HCPCS: 70450; 72050; 72120; 72131

== ENCOUNTER 2018-04-29 09:00 | Outpatient (CLI) | payer MEDICARE ==
--- NOTE | 2018-04-29 11:34 | RAD ---
LUMBAR SPINE 2 VIEWS: Date: 04/29/18 HISTORY: Fracture. COMPARISON: CT dated 04/21/18. FINDINGS: There has been progressive superior and inferior end plate height loss at L4 with greater than 50% ce ntral depression. There is also mild increased posterior and anterior end plate height loss with appr oximately 30% anterior and 50% posterior vertebral body height loss. Chronic inferior end plate depre ssion at L3, as well as superior end plate depression at L5. There is narrowing of the interspinous spaces. Mild levoscoliosis. The sacral struts are intact. IMPRESSION: Mild progressive height loss of the L4 complete burst fracture. POS: [facility]
== END 2018-04-29 09:01 | disposition home or self-care (01) ==
LOC: TBSIIMAG 09:00
PROVIDERS: ATTEND Surgery
DX: S32.041D Stable burst fracture of fourth lumbar vertebra, subsequent encounter for fracture with routine healing (principal)
CPT/HCPCS: 72100

== ENCOUNTER 2018-05-14 23:32 | Inpatient (IN) | payer MEDICARE ==
[2018-05-15 00:17] LABS: Bilirubin Negative (Negative); Blood, Urine Negative (Negative); Clarity CLEAR (Clear); Glucose, Urine (Dipstick) Negative (Negative); Leukocyte Negative (Negative); Nitrite Negative (Negative); Protein, Urine (Dipstick) Negative (Neg-Trace); Specific Gravity, Urine 1.004 (1.002-1.036)
[2018-05-15 00:26] LABS: #Basophils 0.1 thou/uL (0.0-0.2); #Eosinphils 0.2 thou/uL (0.0-0.7); #Lymphocytes 1.1 thou/uL (1.20-3.40); #Monocytes 0.6 thou/uL (0.11-0.59); #Neutrophils 6.2 thou/uL (1.40-6.50); %Basophils 0.7 % (0.0-1.0); %Eosinophils 2.7 % (0.0-10.0); %Lymphocytes 13.3 % (21.0-51.0); %Monocytes 7.2 % (0.0-10.0); %Neutrophils 76.1 % (42.0-75.0); Hemoglobin 13.5 g/dL (14.0-18.0); Mean Corpuscular HGB CONC 32.4 g/dL (32.0-36.0); Mean Corpuscular Hemoglobin 32.5 pg (27.0-31.0); Mean Platelet Volume 6.2 fL (7.4-10.4); Platelet Count 235 thou/uL (130-400); RBC Distribution Width 13.2 % (11.5-14.5); Red Blood Cell (RBC) Count 4.14 mill/uL (4.70-6.10); White Blood Cell (WBC) Count 8.1 thou/uL (4.8-10.8)
[2018-05-15] MEDS ORDERED: Adacel (T-DAP) 0.5 ML SYRINGE ONE (00:32)
[2018-05-15 00:50] LABS: ALT (SGPT) 16 U/L (8-55); AST (SGOT) 17 U/L (5-34); Albumin 3.9 g/dL (3.4-4.8); Alkaline Phosphatase 164 U/L (40-150); Anion Gap 15 mmol/L (10-20); BUN (Urea Nitrogen) 18 mg/dL (8.4-25.7); Bilirubin, Total 0.4 mg/dL (0.2-1.2); Calc. Creatinine Clearance 0 mL/min (70-130); Calcium 8.9 mg/dL (7.8-10.44); Carbon Dioxide 25 mmol/L (23-31); Chloride 106 mmol/L (98-107); Estimated GFR-MDRD 65; Globulin 2.7 g/dL (2.4-3.5); Glucose 84 mg/dL (83-110); Potassium 4.2 mmol/L (3.5-5.1); Protein, Total 6.6 g/dL (5.8-8.1); Sodium 142 mmol/L (136-145)
[2018-05-15] MEDS ORDERED: Lidocaine 1% w/Epinephrine 1:100K 20 ML VIAL ONE (01:01)
[2018-05-15 01:08] LABS: CKMB 4.1 ng/mL (0-6.6)
[2018-05-15] MEDS ORDERED: Bacitracin Zinc 1 Packet ONE (02:23)
[2018-05-15 04:52] LABS: CKMB 3.9 ng/mL (0-6.6)
--- NOTE | 2018-05-15 06:12 | HP ---
PRIMARY CARE PHYSICIAN: Russell Scott MD CHIEF COMPLAINT: Falls. HISTORY OF PRESENT ILLNESS: The patient is an 82-year-old male with past medical history of atrial fibrillation, hypertension, COPD, subdural hematoma, pacemaker , and coronary artery disease, who presented to the emergency department after having fall and laceration of his head. The patient's daughter present at bedside, who gave most of the history. The patient has been having multiple falls that has been going on for a number of months. The patient was admitted recently for subdural hematoma back in February. Before that, the patient was admitted after having fall and his Pradaxa was stopped at that time. Per daughter, the patient has been drinking alcohol since age 18. The patient drinks about 6 shots of whiskey/ court daily. The patient denies any history of liver problem. The patient reports that his belly has been protruded. This protrusion of belly has been going on for a number of years. The patient reports that he has hernia in the past. The patient denied any chest pain, shortness of breath, abdominal pain at this point. The patient has been taking Lasix 40 mg for his heart failure, which he has been taking it daily. PAST MEDICAL HISTORY: Chronic diastolic heart failure, hypertension, COPD, atrial fibrillation, pacemaker, coronary artery disease, and subdural hematoma. PAST SURGICAL HISTORY: Pacemaker, inguinal hernia repair, bilateral hip replacement and left heel surgery. CURRENT MEDICATIONS: The patient seems to be on: 1. Levothyroxine. 2. Folic acid. 3. Lasix. 4. Thiamine. 5. Amitriptyline. 6. Nebulizers. 7. Atorvastatin. 8. Hydrocodone. 9. Escitalopram. 10. Omeprazole. 11. Potassium tablets. 12. MiraLAX. 13. Lisinopril. ALLERGIES: PENICILLIN. FAMILY HISTORY: Positive for hypertension. SOCIAL HISTORY: The patient lives with his daughter and he drinks whiskey daily about 5 to 6 shots. REVIEW OF SYSTEMS: A 10-point review of systems negative, other than mentioned in the HPI. PHYSICAL EXAMINATION: VITAL SIGNS: Blood pressure 146/90, heart rate 88, respiratory rate 17, and O2 saturation 96% on room air. CONSTITUTIONAL: The patient is alert and oriented x2. The patient told me that it is May 2017. HEENT: Head, laceration, status post repair noted on the left forehead and parietal region. Dried blood noted. Ears, grossly normal. Nose, grossly normal. Mouth , no exudate. NECK: No lymphadenopathy noted. CHEST AND HEART: The patient has a pacemaker. Regular rate and rhythm. No murmur, rubs, or gallop noted. LUNGS: Clear bilaterally. No wheezes, rales, or crackle noted. ABDOMEN: Soft, nontender, and nondistended, but belly is protruded. EXTREMITIES: Does have 1+ edema in his lower extremity. DIAGNOSTIC DATA: CT head, negative for acute hemorrhage or CVA. Chest x-ray, cardiomegaly. Neck, negative for acute fracture. EKG appears to have ventricular paced rhythm. ASSESSMENT AND PLAN: 1. Fall, status post laceration repair of forehead. The patient has multiple fall history. The patient has been previously admitted for workup and so further workup has been negative. The patient is off anticoagulation at this point. I think falls are due to his excessive alcohol use. We will admit the patient for ultrasound carotid. The patient had echo done in July 2017, that was significant for ejection fraction of greater than 60% and severe diastolic heart failure. PT/OT to evaluate the patient during the admission. Fall precautions. 2. Alcohol abuse. The patient counseled on alcohol abuse. We will get alcohol level. The patient did not seem to be in withdrawal and therefore will not put CIWA protocol at this point. We will continue to monitor clinically. We will continue home thiamine and folic acid. 3. Atrial fibrillation. Continue home medications. The patient had been off Pradaxa since his falls back in February and subdural hematoma. 4. Chronic obstructive pulmonary disease. The patient does not appear to be in acute exacerbation at this point, will have DuoNeb as needed. 5. Hypertension. Restart home medication once medications have been confirmed. We will continue hydralazine at this point. 6. History of subdural hematoma. CT examination negative for any acute bleeding at this point. We will continue to monitor clinically. Avoid chemical DVT ppx 7. The patient's medical power of transmitter tester. The patient does have a , who is estranged and the patient does not live with her. Daughter wants to be medical power of transmitter tester and she wants to make decision for the patient. Daughter does not have the medical power of transmitter tester paperwork at this point. 8. Code status, the patient requests to be a full code. 9. Diastolic CHF: BNP 431. Except for 1+ BLE edema, pt does not appear to be in CHF exacerbation. Cont home Willem Job ID: [id number] [facility]
[2018-05-15] MEDS ORDERED: Acetaminophen 325 MG TAB PO PRN (06:14)
[2018-05-15] MEDS ORDERED: hydrALAZINE 20 MG/ML VIAL SLOW IVP PRN (06:14)
[2018-05-15] MEDS ORDERED: Ondansetron ODT 4 MG TAB PO PRN (06:14)
--- NOTE | 2018-05-15 08:15 | RAD ---
SINGLE VIEW OF THE CHEST: COMPARISON: 07/18/2017. HISTORY: Fall from standing in the bathroom with laceration to forehead. Chest pain. FINDINGS: A single view of the chest shows an enlarged but stable cardiomediastinal silhouette. The pacemaker is unchanged in position. There is a stable small to moderate right pleural effusion. Calcified gra nulomas are seen scattered throughout both lungs. IMPRESSION: Stable right pleural effusion. POS: [facility]
--- NOTE | 2018-05-15 08:32 | CT ---
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 COMPARISON: CT Brain WO Con 03/05/2018 4:39 AM FINDINGS: Brain: No intracrainal hemorrhage. No midline shift. The brain parenchyma appears normal for age. Ventricles: No ventriculomegaly. Bones/joints: Unremarkable. No acute fracture. Sinuses: Visualized sinuses are unremarkable. No acute sinusitis. Mastoid air cells: Visualized mastoid air cells are unremarkable. No mastoid effusion. Soft tissues: No acute hematoma IMPRESSION: No acute intracranial abnormality. Thank you for allowing us to participate in the care of your patient. Dictated and Authenticated by: Zaheer Coppola MD 05/15/2018 1:13 AM Central Time ([place]) FINAL REPORT EMERGENT AFTER HOURS CT OF THE BRAIN WITHOUT CONTRAST: FINDINGS/IMPRESSION: I agree with the findings and impression given in the preliminary report per [facility] physician. No eliu dence of acute intracranial abnormality. POS: [facility]
--- NOTE | 2018-05-15 08:34 | CT ---
PRELIMINARY REPORT/[facility]/EMERGENTY AFTER-HOURS PROCEDURE CT Cervical Spine Without Contrast EXAM DATE/TIME: 05/15/2018 12:27 AM CLINICAL HISTORY: 82 years old, male; Injury or trauma; Fall; Initial encounter; Abrasion; Patient HX: PT called ems; F ell from standing while on the way to bathroom; 2 inch lac to forehead adn l cheeck; Presure dressing s applied lpta; Alert and oriented TECHNIQUE: Axial computed tomography images of the cervical spine without intravenous contrast. Coronal and sagittal reformatted images were created and reviewed. COMPARISON: No relevant prior studies available. FINDINGS: Osseous structures: There is no evidence of acute fracture or spondylolisthesis. The cervical alignment is normal. The vertebral body heights are well-maintained. Moderate to severe multilevel degenerative facet change The osseous skull base is normal. Intervertebral discs: Severe disc degeneration with partial osseous fusion. Moderate multilevel degenerative disc linares ge. There is no evidence of significant central canal stenosis. Soft tissues: The soft tissues of the neck and paraspinal musculature are unremarkable. The right lung apex is not well seen. There is some opacification on the mortarman view. IMPRESSION: Moderate multilevel degenerative disc and degenerative facet change without evidence of acute fractur e. There is opacification of the right lung apex on the mortarman view. PA and lateral view of the chest marcin uld be considered. Thank you for allowing us to participate in the care of your patient. Dictated and Authenticated by: Zaheer Coppola MD 05/15/2018 1:19 AM Central Time ([place]) FINAL REPORT EMERGENT AFTER HOURS CT CERVICAL SPINE: IMPRESSION: Disagree with the preliminary interpretation given by [facility]. Comparison is made with the study dated 05/04/2017. There is incomplete fusion of the posterior arch of C1 which is stable with respect to th e prior examination. However, there has been interval development of nondisplaced fracture involving the posterior arch of C1 right of midline. Advanced cervical degenerative changes are seen without evidence for additional fracture. The presence of the C1 fracture was communicated to the patient's nurse, Era, at 7:36 a.m. 05/15/2018. CODE CR POS: [facility]
--- NOTE | 2018-05-15 09:46 | PDOC.EVN ---
Event Note - Event Note Event Note: Reviewed record and evaluated patient. Fall with facial and forehead lac. Complains of some mild "strain" feeling in neck. Drinks 4-8 court/bourbon drinks per evening. Has not been 24 hours without alcohol in 2 years. He does not think he will withdraw. Heart is regular. Lungs clear. A and O x3. Appropriate and pleasant. Forehead lac sutured. No TTP of the c-spine. Syncope with facial lac. Interrogate PPM. Orthostatic BP. Carotid dopplers. EP consult. C1 arch fx. Likely stable. Immobilize. Neurosurg consult. EtOH abuse. No treatment indicated now. Watch for s/sx of WD. COPD. Stable. Mild elevation of Trop with mild elevation of the BNP. Likley type II demand ischemia. Ascited noted on prior imaging. Abd. US. Chronic pain. Reports lumbar vert fx. Takes norco at home. Trying to hold off on that for now.
[2018-05-15] MEDS: Furosemide 40 MG TAB PO SCH (10:29)
[2018-05-15] MEDS: Folic Acid 1 MG TAB PO SCH (10:29)
--- NOTE | 2018-05-15 11:08 | ULT ---
CAROTID DUPLEX SONOGRAM: HISTORY: Vascular disease. Altered mental status. TIA. FINDINGS: RIGHT: No significant plaque. Color and spectral Doppler evaluation, peak systolic velocity of 53 cm/s, and IC to CC ratio of 0.7 suggests no hemodynamically significant stenosis within the extracranial right ICA. Right vertebral artery not well visualized. LEFT: No significant plaque. Color and spectral Doppler evaluation, peak systolic velocity of 56 cm/s, and IC to CC ratio of 0.7 suggests no hemodynamically significant stenosis within the extracranial left ICA. Antegrade flow within the vertebral artery. IMPRESSION: No significant plaque visible. No sonographic evidence of significant extracranial internal carotid artery stenosis. POS: [facility]
[2018-05-15 12:20] VITALS: BMI 28.6
--- NOTE | 2018-05-15 14:45 | ULT ---
LIMITED ABDOMINAL ULTRASOUND: Date: 05/15/18 CLINICAL HISTORY: Ascites. FINDINGS: Limited sonographic interrogation of the right upper, right lower, left upper, and left lower quadran ts was performed. No free intraperitoneal fluid is sonographically apparent. IMPRESSION: No sonographically apparent free intraperitoneal fluid. POS: [facility]
[2018-05-15] MEDS ORDERED: Acetaminophen 500 MG TAB PO PRN (20:51)
--- NOTE | 2018-05-15 21:26 | CON ---
DATE OF CONSULTATION: 05/15/2018 REASON FOR CONSULTATION: I am seeing Mr. 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 Frequent falls and associated syncope. 2. Prior history of subdural hematoma associated with same. 3. History of paroxysmal atrial fibrillation, currently with low burden as per pacemaker interrogation. 4. History of chronic pacemaker use with original implant date July 18, 2017, due to sinus bradycardia. 5. History of EtOH abuse, chronic. 6. History preserved LVEF at 60% on baseline echo on November 2017. 7. Diastolic heart failure. Elevated BNP on presentation on diuretics. 8. Prior history of heart ablation 4 years ago in [place]. Details unavailable. 9. Face laceration and C4 fracture on that course due to the fall. ALLERGIES: PENICILLINS. MEDICATIONS: At home included: 1. Hydrocodone/APAP. 2. Cyanocobalamin. 3. . 4. Lipitor. 5. Levothyroxine. 6. Amitriptyline. 7. Thiamine. 8. Folic acid. 9. Cranberry juice. 10. 40 mg of furosemide. 11. Sennoside. 12. Omeprazole. SUBJECTIVE: Mr. Mcdaniels is here due to a repeated episode of falls. This time he lacerated his forehead and also found to have a C4 fracture on his neck collar. He did not develop new subdural hematoma like he did at the last visit. At this time, he was not on anticoagulation. He described the event as follows: He was watching TV, getting up to go to the bathroom, couple steps, cannot remember any prodrome and he just went down, cannot remember the rest. He does admit significant amount of alcohol, his usual doses in the evening. Currently he is having no major symptoms. No PND or orthopnea. No lower extremity edema. No fever, chills or cough. No stroke-like symptoms. No neurological deficits. Rest of 12-point system otherwise unremarkable. Past history as above. He does report some remote history of ablation, but not clear for what kind of rhythm. He does not know about his atrial fibrillation. SOCIAL HISTORY: The patient is a chronic drinker and drinks whiskey 5-6 shots a day. Lives with daughter. FAMILY HISTORY: Not contributory. OBJECTIVE DATA: VITAL SIGNS: Blood pressure is 141/83, sitting, 150/84 standing and 136/79 lying flat. GENERAL: Alert and oriented man, in no apparent distress. NECK: Supple. Jugular veins difficult to visualize due to neck collar. CHEST: Coarse without crackles. HEART: Sounds are regular to rate and rhythm. Left subclavian pacemaker without reaction. The heart sounds are regular to rate and rhythm. No murmur or gallop. ABDOMEN: Benign. Bowel sounds positive. EXTREMITIES: Lower extremities without edema, clubbing, or cyanosis. DATABASE: EKGs reveal sinus rhythm with ventricular pacing. Interrogation of device reveals a Wattio Advisa DR MRI compatible dual-chamber pacemaker implanted July 2017. Battery longevity is suggestive of 6.5. Years or beyond. Lead parameters appears to be adequate. Impedance 475 ohms and 399 ohms respectively. Sensing 3.01 and 14.5 mV. Capture threshold is also good at 0.75 V at 0.4 millisecond and 1 V at 0.4 milliseconds. All excellent numbers. The patient is 99.8% ventricularly paced suggestive of likely AV block present. The atrial fibrillation episode burden is very low and decreased in amounts since February last year. No ventricular tachyarrhythmia episodes are documented. LABORATORY DATA: White count is 8.1, hemoglobin 13.5, platelet count is 235. Sodium 142, potassium 4.2, BUN is 18, creatinine 1.09. The troponin I is 0.076, 0.054 and 0.06 consecutively. BNP is 431. DISCUSSION: Mr. Mcdaniels is a pleasant 82-year-old man with prior history of atrial fibrillation, some sort of ablation in the past, which is not well defined. He can't remember, 4 years ago out of town. He has a minimal amount of atrial fibrillation as per his Medtronic pacemaker in place. Pacing also functioning adequately. No significant arrhythmias are documented; therefore tachy-jorgito arrhythmias are ruled out as a possible cause for his fall. Orthostatic blood pressure was checked and seems to indicate some mild drop, although still not significant enough at least on our measurements to cause the passing out spell. Alternatively, alcohol intoxication, poor balance and head trauma related amnesia could explain the event as well. Neurologic evaluation also could be a consideration as potential for seizures. He also mentions history of some significant headaches, especially with blood pressure fluctuations. He also has history of diastolic heart failure, although currently not very prominent. BNP was elevated though. He is on chronic diuretics. He used to be on anticoagulant, but since the subdural hematoma on last visit, he is off that. At this point, hence he has no significant amount of atrial fibrillation. I would hold off on that. Should he have recurrent atrial fibrillation in future of significant duration and consideration for anticoagulation, possibly Watchman procedure could be a good long-term solution for him. Hence, his falls might continue into the future. ASSESSMENT: 1. Adequate pacemaker function. No evidence of tachybrady arrhythmias to explain any syncopal spells. 2. History of atrial fibrillation, possible ablation in the past. Currently, minimal burden. Off anticoagulants, hence history of subdural hematoma. 3. Frequent falls, likely noncardiac, possibly orthostatic. Monitor orthostatic blood pressures and avoid dehydration. 4. Possible neurologic cause of syncope, his history of chronic alcohol abuse is a possibility versus alcohol-related ataxia. At this point, I woulc continue current management. Hold off OAC. Monitor for recurrent atrial arrhythmias. Will Follow Friday or Outpt. Job ID: [id number] [facility]
[2018-05-15] MEDS ORDERED: Lorazepam 1 MG TAB PO PRN (21:39)
--- NOTE | 2018-05-15 22:34 | CON ---
DATE OF CONSULTATION: HISTORY OF PRESENT ILLNESS: Mr. Mcdaniels is an 82-year-old man who came to the emergency department last night due to a fall. The patient states that he stood up out of his recliner, took a couple steps and fell forward striking his forehead on his hardwood floor. The patient had a laceration on his forehead, which was stitched up and he is being monitored by the Hospitalist Department. Neurosurgery was consulted because there was a CT scan of the cervical spine that showed a C1 arch fracture. Upon seeing Mr. Mcdaniels in his hospital room, he is resting comfortably. His left side laceration is closed. There are stitches and he has a glued laceration on the left cheek. He is awake and alert and he is moving all 4 extremities well. He complains of a headache. No neck pain and is moving his neck freely in rotation, flexion and extension. REVIEW OF SYSTEMS: A 10-point review of systems has been completed and is negative other than stated in the above HPI. PAST MEDICAL HISTORY: 1. Pacemaker. 2. Chronic diastolic heart failure. 3. Hypertension. 4. COPD. 5. Atrial fibrillation. 6. Coronary artery disease. 7. Subdural hematoma. PAST SURGICAL HISTORY: 1. Pacemaker. 2. Inguinal hernia repair. 3. Bilateral hip replacement. 4. Left heel surgery. MEDICATIONS: 1. Levothyroxine. 2. Folic acid. 3. Lasix. 4. Thiamin. 5. Amitriptyline. 6. Nebulizers. 7. Atorvastatin. 8. Hydrocodone. 9. Escitalopram. 10. Omeprazole. 11. Potassium. 12. MiraLAX. 13. Lisinopril. ALLERGIES: PENICILLIN. FAMILY HISTORY: Positive for hypertension. SOCIAL HISTORY: The patient lives with his daughter and drinks whiskey daily about 5 or 6 shots. Denies smoking use. PHYSICAL EXAMINATION: VITAL SIGNS: Temperature 98.4, heart rate 92, respirations 16, O2 sats 94% on room air, and blood pressure 141/75. CONSTITUTIONAL: The patient is alert and oriented. He is afebrile, normotensive and does not appear nontoxic. HEENT: Head is normocephalic. There is a laceration on the left superior temporal aspect of his head, which is closed with sutures and a left glued laceration on his cheek. Vision is intact. Pupils are equal, round and reactive to light. Extraocular movements are intact. Hearing is intact. Moist mucous membranes. NECK: Nontender. Midline trachea. No masses are noted. Range of motion is nonpainful. RESPIRATIONS: Normal work of breathing on room air. Symmetric chest rise. EXTREMITIES: The patient is moving all 4 extremities well, 5/5 strength in deltoids, biceps, triceps, gis consultant strength, hip flexion, knee flexion, dorsiflexion, plantar flexion. The patient has 1+ pitting edema of bilateral lower extremities, left greater than right. Distal pulses intact. Decreased hair growth on lower extremities. NEUROLOGIC: The patient is alert and oriented. Speech is spontaneous and fluent. Normal fund of knowledge. Cranial nerves 2-12 are intact. There are no focal motor or sensory deficits. IMAGING: CT of the cervical spine states that there is a C1 incomplete fusion of the posterior arch, right of midline. ASSESSMENT AND PLAN: Mr. Mcdaniels is an 82-year-old male who was brought to the emergency department due to a fall. He sustained a laceration on his forehead and he is being treated for that along with ethanol abuse by Hospitalist Department. Upon reviewing his cervical CT, there is evidence of a posterior arch fracture. Pt. has had previous Cervical scan which show and non fully fused C1 arch however, this fracture is new, it appears to be stable. Pt. will need to wear C collar at all times. He will be given a 2nd one for showers. Pt. should follow up with Neurosurgery 4 and 8 weeks with Xrays. Job ID: [id number] [facility]
[2018-05-15] MEDS ORDERED: Lidocaine 5% Patch TD PRN (23:58)
[2018-05-15] MEDS ORDERED: Lidocaine Patch Removal TOP PRN (23:59)
[2018-05-16 06:54] LABS: #Basophils 0.1 thou/uL (0.0-0.2); #Eosinphils 0.2 thou/uL (0.0-0.7); #Lymphocytes 0.9 thou/uL (1.20-3.40); #Monocytes 0.8 thou/uL (0.11-0.59); %Basophils 0.7 % (0.0-1.0); %Eosinophils 3.4 % (0.0-10.0); %Monocytes 11.4 % (0.0-10.0); %Neutrophils 71.5 % (42.0-75.0); Hemoglobin 12.3 g/dL (14.0-18.0); Mean Corpuscular HGB CONC 32.3 g/dL (32.0-36.0); Mean Corpuscular Hemoglobin 32.2 pg (27.0-31.0); Mean Corpuscular Volume 99.8 fL (78.0-98.0); Mean Platelet Volume 6.8 fL (7.4-10.4); Platelet Count 217 thou/uL (130-400); RBC Distribution Width 13.1 % (11.5-14.5); Red Blood Cell (RBC) Count 3.83 mill/uL (4.70-6.10)
[2018-05-16 07:07] LABS: Anion Gap 13 mmol/L (10-20); BUN (Urea Nitrogen) 18 mg/dL (8.4-25.7); Calc. Creatinine Clearance 79 mL/min (70-130); Calcium 8.7 mg/dL (7.8-10.44); Carbon Dioxide 26 mmol/L (23-31); Chloride 107 mmol/L (98-107); Estimated GFR-MDRD 71; Glucose 101 mg/dL (83-110); Potassium 3.9 mmol/L (3.5-5.1); Sodium 142 mmol/L (136-145)
[2018-05-16] MEDS ORDERED: HYDROcodone/Acetaminophen 5/325 mg Tablet PO PRN (07:41)
[2018-05-16] MEDS: Furosemide 40 MG TAB PO SCH (10:16)
[2018-05-16] MEDS: Folic Acid 1 MG TAB PO SCH (10:16)
--- NOTE | 2018-05-16 10:25 | PRG ---
DATE OF SERVICE: 05/16/2018 SUBJECTIVE: Mr. Mcdaniels is an 82-year-old man, who is out from a closed head injury due to syncope and ethanol use. Neurosurgery was consulted on his case for a new C1 fracture following his fall. He is awake, alert, oriented, and doing well. He is moving all 4 extremities well. He denies any pain in his neck. He has a soft collar in place, which he needs to replace with an [place]. There were no recorded events overnight. No fevers. OBJECTIVE: VITAL SIGNS: All vitals were within normal limits. GENERAL: The patient is awake, alert, and oriented. EXTREMITIES: He is moving all 4 extremities well. NEUROLOGIC: He has no new neurologic or sensory deficits this morning. ASSESSMENT AND PLAN: Mr. Mcdaniels is free to discharge home when the hospitalist department feels they are ready to discharge him, we will see him in our office in 4 weeks and then 8 weeks for followup for the C1 fracture. We would like AP and lateral x-rays, and he should wear his Henderson C-collar at all times and switch to his [place] collar for showers. Job ID: [id number]
--- NOTE | 2018-05-16 13:55 | CON ---
DATE OF CONSULTATION: CHIEF COMPLAINT: Fall. HISTORY OF PRESENT ILLNESS: The patient thinks he might have fallen. The patient does not know how he fell. He fell when he was getting up from a chair and he fell flat on his face and he has a laceration and a C-spine fracture. He had a previous history of a fall. Per chart, he has been having multiple falls going on for a number of months. He was admitted recently in February for subdural hematoma, and his Pradaxa was stopped prior to that. The patient has been drinking alcohol. He drinks about 6 shots of whiskey or court per day and has had belly protrusion for number of years. The patient is not sure how he fell. He does not have any known balance problems or dizziness or tremor. The patient is in a C-collar at this time. PREVIOUS MEDICAL HISTORY: Chronic diastolic heart failure, hypertension, COPD, atrial fibrillation, pacemaker, coronary artery disease, and subdural hematoma. PAST SURGICAL HISTORY: Pacemaker, inguinal hernia repair, bilateral hip replacement, and left heel surgery. MEDICATIONS: At home; 1. Levothyroxine. 2. Folic acid. 3. Lasix. 4. Thiamine. 5. Amitriptyline. 6. Nebulizers. 7. Atorvastatin. 8. Hydrocodone. 9. Lexapro. 10. Omeprazole. 11. Potassium tablets. 12. MiraLAX. 13. Lisinopril. ALLERGIES: HE IS ALLERGIC TO PENICILLIN. FAMILY HISTORY: Positive for hypertension. There is no family history of Parkinson's disease. SOCIAL HISTORY: Lives with his daughter. Drinks whiskey on a daily basis. Nonsmoker. REVIEW OF SYSTEMS: PULMONARY: Negative for cough or shortness of breath. CARDIAC: Negative for chest pain or palpitations. NEUROLOGICAL: Positive for recurrent falls. ENDOCRINE: Negative for any diabetes or thyroid dysfunction. DERMATOLOGIC: Negative for any skin lesions or rash. ORTHOPEDIC: Positive for C-spine fracture and also history of knee problems. HEMATOLOGICAL: Negative for any bleeding diathesis. PHYSICAL EXAMINATION: VITAL SIGNS: Temperature 98.5, pulse is 85, blood pressure 154/94, and respiratory rate 18. GENERAL APPEARANCE: Well-built, well-nourished man, who seems to be slightly overweight. He is in a C-collar. CHEST: Clear vesicular breathing. CARDIOVASCULAR: S1 and S2 heard. No murmurs. ABDOMEN: Soft. NEUROLOGICAL: Alert, awake, oriented to time, place, and person. He missed the date, he said it was May 15. Cranial nerves II through XII; pupils are equal, 4 mm, reactive to light. Extraocular movements normal. No facial asymmetry. Normal sensation of face bilaterally. Palate is normal. Tongue is midline. Hearing is normal. Motor; bulk normal. Tone normal. Strength 5/5 in upper and lower extremities in iliopsoas, hamstrings, quadriceps, ankle dorsiflexion, plantar flexion, deltoid, biceps, triceps, wrist extension and flexion, and finger extension and flexion. Sensory examination; he had abnormal proprioception distally in both lower extremities. Deep tendon reflexes were 2+ throughout. Cerebellar; normal [id number] and [id number]. CURRENT LABORATORY WORKUP: Hemoglobin 12.3, hematocrit 38.3, platelets 217, and white count 7.0. Chemistries; sodium 142, potassium 3.9, chloride 107, bicarb 26, BUN 18, and creatinine 1.01. Troponin is at 0.076, 0.054, and 0.060. Plasma alcohol was less than 10 at the time of his visit. His other report; CT scan of the brain did not show any acute intracranial abnormality. CT of the C-spine was performed on the 14 of May, which showed severe C6-C7 disk degeneration with partial osseous fusion and multilevel degenerative disk change and there has been interval development of nondisplaced fracture in the posterior arch of C1, right of the midline. IMPRESSION: The patient is an 82-year-old man, who did not tell me he drinks on a daily basis. I found that out through a chart review and his primary exam finding was loss of proprioception. He may have peripheral neuropathy at baseline, which has not been diagnosed with proprioceptive loss and large fiber involvement, it can cause, he may be falling. He may also be falling due to some gait disturbance secondary to alcohol, which can cause midline ataxia, which I am not able to test at this time. Differential diagnosis for this fall includes instability due to orthopedic issues plus possible neuropathy, although sensory sensation was normal. He had impaired proprioception and unstable gait due to alcohol intake. These need to be investigated further as outpatient. RECOMMENDATIONS: For now, consider an MRI of the brain if possible and if his pacemaker is compatible, I think he will benefit from outpatient neurology evaluation with neuro EMG nerve conduction studies and rehab with PT and gait and balance training would help him. Please call if you have any further questions. Job ID: [id number]
[2018-05-16 15:53] VITALS: BP 146/90; TEMP 98.5
== END 2018-05-16 18:06 | disposition home health service (06) | DRG 914 ==
LOC: ERS 23:32 → 2SE 05-15 05:42
PROVIDERS: ADMIT Family Medicine; ATTEND Family Medicine
PROC: 0HQ1XZZ Repair Face Skin, External Approach (ICD-10-PCS; principal; 2018-05-15)
PROC: 4A02XFZ Measurement of Cardiac Rhythm, External Approach (ICD-10-PCS; 2018-05-15)
DX: S09.90XA Unspecified injury of head, initial encounter (principal); S12.031A Nondisplaced posterior arch fracture of first cervical vertebra, initial encounter for closed fracture; I50.32 Chronic diastolic (congestive) heart failure; I24.8 Other forms of acute ischemic heart disease; W18.30XA Fall on same level, unspecified, initial encounter; S01.81XA Laceration without foreign body of other part of head, initial encounter; S01.412A Laceration without foreign body of left cheek and temporomandibular area, initial encounter; I11.0 Hypertensive heart disease with heart failure; I48.0 Paroxysmal atrial fibrillation; R41.3 Other amnesia; I25.10 Atherosclerotic heart disease of native coronary artery without angina pectoris; F10.20 Alcohol dependence, uncomplicated; R40.2412 Glasgow coma scale score 13-15, at arrival to emergency department; M50.323 Other cervical disc degeneration at C6-C7 level; K76.9 Liver disease, unspecified; G89.29 Other chronic pain; J44.9 Chronic obstructive pulmonary disease, unspecified; I44.30 Unspecified atrioventricular block; R29.6 Repeated falls; Z91.81 History of falling; Z88.0 Allergy status to penicillin; Z79.899 Other long term (current) drug therapy; Z95.0 Presence of cardiac pacemaker; Z96.643 Presence of artificial hip joint, bilateral; Z79.51 Long term (current) use of inhaled steroids; Z87.820 Personal history of traumatic brain injury; Z82.49 Family history of ischemic heart disease and other diseases of the circulatory system
CPT/HCPCS: 12014; 36415; 70450; 71045; 72125; 76705; 80048; 80053; 80307; 81003; 82553; 83880; 84484; 85025; 90471; 90715; 93005; 93880; J2001

== ENCOUNTER 2018-06-10 14:48 | Outpatient (CLI) | payer MEDICARE ==
--- NOTE | 2018-06-10 16:20 | RAD ---
LUMBOSACRAL SPINE TWO VIEWS: HISTORY: L1 fracture followup. COMPARISON: 04/29/2018 FINDINGS: Two views of the lumbosacral spine show mild wedge compression deformity of the T12 vertebral body wi th approximately 10% height loss. There is wedge compression deformity of the L4 vertebral body with approximately 50% height loss. Mild compression deformity of the L5 vertebral body is seen with tony roximately 10% height loss. These findings are stable compared to the prior examination and are like ly chronic. Posterior facet arthrosis is seen in the lumbar spine. IMPRESSION: Stable compression fractures of the spine. POS: [facility]
--- NOTE | 2018-06-10 16:25 | RAD ---
STANDARD CERVICAL SPINE AP AND LATERAL: HISTORY: 12.9XXA, C1 fracture. COMPARISON: Cervical spine CT from 05/15/2018. FINDINGS: There is poor visualization of the right posterolateral process of the C1 fracture, although it can b e seen on the odontoid view. No significant subluxation of the right anterior arch of C1. Severe de generative change of the facets. No new acute superimposed fracture or malalignment. IMPRESSION: Similar appearance to the right C1 posterolateral mass fracture. POS: [facility]
== END 2018-06-10 14:49 | disposition home or self-care (01) ==
LOC: TBSIIMAG 14:48
PROVIDERS: ATTEND Surgery
DX: S12.000D Unspecified displaced fracture of first cervical vertebra, subsequent encounter for fracture with routine healing (principal); M54.5 Low back pain; S32.041D Stable burst fracture of fourth lumbar vertebra, subsequent encounter for fracture with routine healing
CPT/HCPCS: 72040; 72100

== ENCOUNTER 2018-07-22 13:21 | Outpatient (CLI) | payer MEDICARE ==
--- NOTE | 2018-07-22 13:59 | RAD ---
CERVICAL SPINE THREE VIEWS: HISTORY: Followup of C1 fracture. FINDINGS: There is poor visualization of the posterolateral process fracture of C1, but the alignment appears u nchanged since the previous exam. No new findings. The bones are demineralized. IMPRESSION: Stable examination. POS: [facility]
== END 2018-07-22 13:22 | disposition home or self-care (01) ==
LOC: TBSIIMAG 13:21
PROVIDERS: ATTEND Surgery
DX: S12.000D Unspecified displaced fracture of first cervical vertebra, subsequent encounter for fracture with routine healing (principal)
CPT/HCPCS: 72040

== ENCOUNTER 2018-08-19 14:10 | Outpatient (CLI) | payer MEDICARE ==
--- NOTE | 2018-08-19 14:29 | RAD ---
Exam: 3 views cervical spine COMPARISON: 07/22/2018, 06/10/2018 HISTORY: fracture. Follow-up exam. FINDINGS: Predental space is normal. No prevertebral soft tissue swelling. Stable alignment of the ce rvical spine on the lateral projection. Moderate to severe loss of disc space height at C6-C7. No radiographic evidence of a cervical spine fracture. Limited evaluation of the C1 fracture. Limited evaluation on the AP projection. No obvious malalignment. IMPRESSION: No significant interval change. Limited evaluation the posterior lateral C1 fracture.
== END 2018-08-19 14:11 | disposition home or self-care (01) ==
LOC: TBSIIMAG 14:10
PROVIDERS: ATTEND Surgery
DX: S12.000A Unspecified displaced fracture of first cervical vertebra, initial encounter for closed fracture (principal); M54.2 Cervicalgia
CPT/HCPCS: 72040

== ENCOUNTER 2018-09-02 12:50 | Outpatient (CLI) | payer MEDICARE ==
--- NOTE | 2018-09-02 15:21 | CT ---
CT Brain WO Con: 09/02/2018 12:00 AM CLINICAL HISTORY: Intracranial hemorrhage, injury. COMPARISON: 05/15/[address] FINDINGS: Hemorrhage: None. Ventricular system: Compensatory dilatation related to moderate global atrophy. Cerebral parenchyma: Microvascular ischemic disease Midline shift: None. Mass: No mass effect. Calvarium: Normal. Visualized Paranasal sinuses: Mucosal thickening/retention cyst formation..Fluid level seen in left m axillary sinus IMPRESSION: No acute intracranial abnormalities.
== END 2018-09-02 12:51 | disposition home or self-care (01) ==
LOC: SCSCT 12:50
PROVIDERS: ATTEND Surgery
DX: S06.5X0A Traumatic subdural hemorrhage without loss of consciousness, initial encounter (principal)
CPT/HCPCS: 70450

== ENCOUNTER 2019-01-01 14:51 | Outpatient (CLI) | payer MEDICARE ==
--- NOTE | 2019-01-01 15:34 | RAD ---
EXAM: 2 views lumbar spine DATE: 01/01/2019 12:00 AM INDICATION: Low back pain COMPARISON: Prior exam dated June 10, 2018. FINDING: Diffuse osteopenia and severe multilevel spondylosis is stable. Moderate compression abnorm ality involving L4 is stable. The inferior endplate compression abnormalities involving the L3 and L2 are stable. Spinal alignment is unchanged. There is mild grade 1 anterolisthesis of L4 and L5. The re are vascular calcifications involving abdominal aorta. There are bilateral hip prostheses. There is partial visualization of a pacemaker involving the right ventricle. IMPRESSION:Stable exam.
== END 2019-01-01 14:52 | disposition home or self-care (01) ==
LOC: SCSRAD 14:51
PROVIDERS: ATTEND Family Medicine
DX: S32.000S Wedge compression fracture of unspecified lumbar vertebra, sequela (principal); M54.5 Low back pain
CPT/HCPCS: 72100

== ENCOUNTER 2019-01-21 12:23 | Outpatient (CLI) | payer MEDICARE ==
--- NOTE | 2019-01-21 15:34 | RAD ---
ESOPHAGRAM: 01/21/19 HISTORY: Globus sensation, dysphagia. FINDINGS: The hotel front office manager radiograph of the abdomen demonstrates a borderline heart size. The aorta is tortuous. Left sided pacemaker device is present. There is a small right pleural effusion. There is evidence of old granulomatous disease. Swallowing was grossly normal. There is unobstructed flow of contrast from the esophagus into the sto mach. Tertiary contractions are present. No obstructing mass, stricture or diverticulum is seen. A 12 mm tablet passes promptly from the esophagus into the stomach. No GE reflux was demonstrated during the Valsalva maneuver. IMPRESSION: Presbyesophagus. POS: [facility]
== END 2019-01-21 12:24 | disposition home or self-care (01) ==
LOC: RAD 12:23
PROVIDERS: ATTEND Specialist
DX: R13.10 Dysphagia, unspecified (principal); R09.89 Other specified symptoms and signs involving the circulatory and respiratory systems; K22.8 Other specified diseases of esophagus
CPT/HCPCS: 74220

== ENCOUNTER 2019-02-02 13:43 | Inpatient (IN) | payer MEDICARE ==
[2019-02-02 14:09] LABS: #Eosinphils 0.1 thou/uL (0.0-0.7); #Lymphocytes 0.6 thou/uL (1.20-3.40); #Monocytes 0.5 thou/uL (0.11-0.59); #Neutrophils 6.4 thou/uL (1.40-6.50); %Basophils 0.5 % (0.0-1.0); %Eosinophils 0.9 % (0.0-10.0); %Lymphocytes 7.9 % (21.0-51.0); %Neutrophils 83.8 % (42.0-75.0); Mean Corpuscular HGB CONC 32.9 g/dL (32.0-36.0); Mean Corpuscular Hemoglobin 31.9 pg (27.0-31.0); Mean Corpuscular Volume 96.8 fL (78.0-98.0); Mean Platelet Volume 6.9 fL (7.4-10.4); Platelet Count 208 thou/uL (130-400); RBC Distribution Width 14.3 % (11.5-14.5); Red Blood Cell (RBC) Count 4.09 mill/uL (4.70-6.10); White Blood Cell (WBC) Count 7.6 thou/uL (4.8-10.8)
[2019-02-02 14:26] LABS: Bilirubin Negative (Negative); Blood, Urine Negative (Negative); Glucose, Urine (Dipstick) Negative (Negative); Leukocyte Negative (Negative); Nitrite Negative (Negative); Protein, Urine (Dipstick) Negative (Neg-Trace)
[2019-02-02 14:30] LABS: ALT (SGPT) 18 U/L (8-55); AST (SGOT) 16 U/L (5-34); Albumin 3.9 g/dL (3.4-4.8); Alkaline Phosphatase 174 U/L (40-110); Anion Gap 13 mmol/L (10-20); BUN (Urea Nitrogen) 30 mg/dL (8.4-25.7); Bilirubin, Total 0.7 mg/dL (0.2-1.2); CK (CPK) 91 U/L (30-200); Calc. Creatinine Clearance 0 mL/min (70-130); Carbon Dioxide 27 mmol/L (23-31); Chloride 105 mmol/L (98-107); Estimated GFR-MDRD 40; Globulin 2.2 g/dL (2.4-3.5); Glucose 202 mg/dL (83-110); Protein, Total 6.1 g/dL (5.8-8.1); Sodium 141 mmol/L (136-145)
[2019-02-02 14:32] LABS: Clarity Clear (Clear)
[2019-02-02 14:53] LABS: CKMB 4.5 ng/mL (0-6.6)
--- NOTE | 2019-02-02 15:27 | RAD ---
PORTABLE CHEST ONE VIEW: 02/02/2019 2:39 p.m. HISTORY: Syncope. COMPARISON: 11/29/2018 FINDINGS: The heart is enlarged. A left-sided pacemaker device remains in place. Right pleural effusion is agai n seen. No pneumothoraces are identified. There is evidence of old granulomatous disease. POS: [facility]
[2019-02-02] MEDS ORDERED: Aspirin Chewable 81 MG TAB ONE (15:56)
[2019-02-02 18:21] LABS: Troponin I 0.139 ng/mL (< 0.028)
[2019-02-02] MEDS ORDERED: Ondansetron PF 4 MG/2 ML Vial IVP PRN (18:49)
[2019-02-02] MEDS ORDERED: Acetaminophen 325 MG TAB PO PRN (18:49)
[2019-02-02] MEDS ORDERED: Ondansetron ODT 4 MG TAB SL PRN (18:49)
[2019-02-02 19:02] VITALS: BMI 27.2
--- NOTE | 2019-02-02 19:31 | PDOC.HHP ---
Hospitalist HPI - History of Present Illness syncope History of Present Illness: This is an 83 year old male with past medical history of hypothyroidism, hyperlipidemia, depression, hypertension who presented to the ER with syncope. Patient states that he fell this morning. He states while he was walking to the bathroom he ended up on the floor and doesn't remember what happened prior to falling. He landed on his right side and he believes hit the back of his head. He believes he was out for a few minutes but when he woke up he quickly remembered what happened. He denied chest pain, palpitations, diaphoresis, visual auras, nausea, vomiting, diarrhea prior to the fall. Patient states he falls frequently. He states that he is always dizzy. He denies vertigo, tinnitus or hearing loss. His dizziness occurs with standing but sometimes at rest as well. He has not been started on any new medication recently. He drinks alcohol 6-7 shots daily and has been doing it for decades with no plans on quitting because it helps with his chronic pain. He normally walks with a walker, reports that one leg is shorter than the other. He also has a pacemaker but hasn't followed up with his financial aid coordinator in a while. ED Course: Patient had an EKG which showed paced rhythm. Labs showed hemoglobin of 13. Creatinine is 1.65. Chest Xray shows small right pleural effusion. Troponin was noted to be elevated. CT head not done. Hospitalist ROS - Review of Systems Constitutional: denies: fever, chills Eyes: denies: vision change (decrease vision left eye) ENT: denies: ear discharge, nose discharge Respiratory: reports: SOB with excertion. denies: cough Cardiovascular: denies: chest pain, palpitations, orthopnea, paroxysmal noc. dyspnea Gastrointestinal: reports: constipation (intermittent constipation). denies: nausea, vomiting, abdominal pain, diarrhea Genitourinary: denies: dysuria, frequency Musculoskeletal: denies: other Skin: reports: bruising (right left forearm) Neurological: denies: weakness, numbness Hospitalist History - Past Medical History Cardiac: reports: HTN, Other (pacemaker) Pulmonary: reports: COPD Psych: reports: Depression Endocrine: reports: Hypothyroidism - Past Surgical History Other Surgical History: Pacemaker Bilateral hip replacement Plate and screw in left heel - Family History Other Family History: Mother had cancer unknown Father committed suicide - Social History Smoking Status: Never smoker Alcohol: reports: Occassional (6 shots of whiskey a day) Living Situation: With Family 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 Has black hole in corner of left pupil. ENT: normocephalic atraumatic, no oropharyngeal lesions ENT - other findings: poor dentition, missing multiple teeth . Contusion on bridge of nose Neck: no JVD, no thyromegaly, no carotid bruit Heart: RRR, no murmur, no gallops, no rubs Respiratory: CTAB, no wheezes Respiratory - other findings: decreased breath sounds at base Gastrointestinal: soft, non-tender Gastrointestinal - other findings: hernia present. Tympanic to percussoin Extremities: 1+ LE edema Skin: no lesions, no rashes Neurological: cranial nerve grossly intact, normal sensation to touch, no focal deficits, no new deficit Musculoskeletal: normal tone, normal strength Musculoskeletal - other findings: Gait significant for patient not able to lift left leg up fully Psychiatric: normal affect, normal behavior, A&O x 3 Hospitalist Results - Labs Result Diagrams: 02/02/19 14:00 02/02/19 14:00 Lab results: WBC 7.6 thou/uL (4.8-10.8) 02/02/19 14:00 Hgb 13.0 g/dL (14.0-18.0) L 02/02/19 14:00 Hct 39.6 % (42.0-52.0) L 02/02/19 14:00 MCV 96.8 fL (78.0-98.0) 02/02/19 14:00 Plt Count 208 thou/uL (130-400) 02/02/19 14:00 Neutrophils % 83.8 % (42.0-75.0) H 02/02/19 14:00 Sodium 141 mmol/L (136-145) 02/02/19 14:00 Potassium 4.0 mmol/L (3.5-5.1) 02/02/19 14:00 Chloride 105 mmol/L (98-107) 02/02/19 14:00 Carbon Dioxide 27 mmol/L (23-31) 02/02/19 14:00 BUN 30 mg/dL (8.4-25.7) H 02/02/19 14:00 Creatinine 1.65 mg/dL (0.7-1.3) H 02/02/19 14:00 Glucose 202 mg/dL (83-110) H 02/02/19 14:00 Calcium 9.0 mg/dL (7.8-10.44) 02/02/19 14:00 Total Bilirubin 0.7 mg/dL (0.2-1.2) 02/02/19 14:00 AST 16 U/L (5-34) 02/02/19 14:00 ALT 18 U/L (8-55) 02/02/19 14:00 Alkaline Phosphatase 174 U/L (40-110) H 02/02/19 14:00 Creatine Kinase 91 U/L (30-200) 02/02/19 14:00 CK-MB (CK-2) 4.5 ng/mL (0-6.6) 02/02/19 14:00 Troponin I 0.139 ng/mL (< 0.028) H 02/02/19 17:48 B-Natriuretic Peptide 768.5 pg/mL (0-100) H 02/02/19 14:00 Serum Total Protein 6.1 g/dL (5.8-8.1) 02/02/19 14:00 Albumin 3.9 g/dL (3.4-4.8) 02/02/19 14:00 Urine Ketones Negative mg/dL (Negative) 02/02/19 14:00 Urine Blood Negative (Negative) 02/02/19 14:00 Urine Nitrite Negative (Negative) 02/02/19 14:00 Ur Leukocyte Esterase Negative (Negative) 02/02/19 14:00 Hospitalist H&P A/P - Plan Plan: Chest Xray: right pleural effusion is again seen Chest x ray: small right pleural effusion This is an 83 year old male with history of alcoholism, depression, CKD, hypothryoidism, GERD who presents for evaluation of syncope Syncope - possibly mechanical from left leg weakness versus cardiac vs alcoholism - EKG showed paced rhythm. Troponin elevated, will obtain ECHO, cardiology consult given patient has pacemaker that patient hasn't had checked in a while - check CT head . Chest X ray shows small right pleural effusion - orthostatics negative - PT consult. Patient is unable to lift left foot up adequately due to it being shorter than right leg - counseled patient on alcohol cessation - hold amitryptyline, hold lasix Troponin elevation - increasing to 0.129. Continue to trend. Will start on aspirin 81 mg daily . Continue atorvastatin - obtain ECHO, denies chest pain Anemia - .6 - continue folate and B12 supplements DIANE on CKD - creatinine increased from 1.3 to 1.65. - check renal ultrasound. UA negative Alcoholism - place on ativan prn for withdrawal protocol Hypothyroidism - levothyroxine GERD - continue PPI Hyperlipidemia - continue atorvastatin Elevated ALP - will keep NPO for ultrasound high tomorrow DVT prophylaxis: ambulation Code status: full code. "Stop when its not working"
[2019-02-02] MEDS ORDERED: Polyethylene Glycol 3350 17 GM Packet PO PRN (21:02)
[2019-02-02 21:05] LABS: Troponin I 0.198 ng/mL (< 0.028)
[2019-02-02] MEDS ORDERED: Lorazepam 1 MG TAB PO PRN (21:05)
[2019-02-02 21:53] LABS: Medtox Reader # READER 4
--- NOTE | 2019-02-02 21:53 | CT ---
CT Brain WO Con: 02/02/2019 8:56 PM CLINICAL HISTORY: History of syncopal episodes and recurrent falls. IMAGING TECHNIQUE: Multiple CT images were obtained of the brain without IV contrast. COMPARISON: Prior exam dated September 02, 2018 FINDINGS: Brain: No acute infarct or hemorrhage is evident. No midline shift. Ventricles: Compensatory hypertrophy from moderate global atrophy.. Skull: Intact.. Visualized Paranasal sinuses: Clear.. Mastoid air cells:Clear. Extracranial soft tissues:Normal. IMPRESSION: No acute intracranial abnormality.
[2019-02-02 21:54] LABS: Amphetamine Not Detected (NotDetected); Barbiturates Screen Not Detected (NotDetected); Benzodiazepine Screen Not Detected (NotDetected); Cocaine Metabolite Screen Not Detected (NotDetected); Medtox Control Line Valid? VALID (VALID); Methadone Not Detected (NotDetected); Methamphetamine Not Detected (NotDetected); Opiate Screen Detected (NotDetected); Oxycodone Screen Not Detected (NotDetected); Phencyclidine (PCP) Not Detected (NotDetected); THC/Cannabinoid Screen Not Detected (NotDetected); Tricyclic Screen Detected (NotDetected)
[2019-02-03] MEDS: Levothyroxine Sodium 100 MCG TAB PO SCH (04:20)
[2019-02-03 06:45] LABS: Anion Gap 13 mmol/L (10-20); BUN (Urea Nitrogen) 27 mg/dL (8.4-25.7); Calc. Creatinine Clearance 55 mL/min (70-130); Calcium 8.6 mg/dL (7.8-10.44); Carbon Dioxide 26 mmol/L (23-31); Chloride 106 mmol/L (98-107); Estimated GFR-MDRD 50; Glucose 101 mg/dL (83-110); Potassium 3.6 mmol/L (3.5-5.1); Sodium 141 mmol/L (136-145)
[2019-02-03 06:46] LABS: Band 2 % (5-11); Eosinophils 6 % (0-10); Hemoglobin 12.6 g/dL (14.0-18.0); Lymphocytes 16 % (21-51); MDiff Complete? YES; Mean Corpuscular HGB CONC 32.9 g/dL (32.0-36.0); Mean Corpuscular Hemoglobin 31.8 pg (27.0-31.0); Mean Corpuscular Volume 96.8 fL (78.0-98.0); Monocytes 5 % (0-10); Neutrophil 70 % (42-75); Platelet Count 200 thou/uL (130-400); RBC Distribution Width 14.4 % (11.5-14.5); Reactive Lymphocytes 1 % (0-10); Red Blood Cell (RBC) Count 3.95 mill/uL (4.70-6.10); White Blood Cell (WBC) Count 6.9 thou/uL (4.8-10.8)
[2019-02-03] MEDS ORDERED: Lisinopril 2.5 MG TAB PO SCH (09:00)
[2019-02-03] MEDS: Aspirin 81 mg Enteric Coated Tablet PO SCH (09:17)
[2019-02-03] MEDS: Cyanocobalamin (Vitamin B-12) 1,000 MCG TAB PO SCH ×2 (09:18→20:45)
[2019-02-03] MEDS: FLUoxetine HCl 10 MG CAP PO SCH ×2 (09:18→20:46)
[2019-02-03] MEDS: Senokot S 8.6-50 MG TAB PO SCH ×2 (09:18→20:44)
[2019-02-03] MEDS: Saccharomyces boulardii 250 MG CAP PO SCH (09:18)
[2019-02-03] MEDS: Thiamine 100 MG TAB PO SCH ×2 (09:18→20:45)
[2019-02-03] MEDS: Folic Acid 1 MG TAB PO SCH (09:18)
--- NOTE | 2019-02-03 09:37 | ULT ---
GALLBLADDER ULTRASOUND: INDICATIONS: Elevated liver function tests. FINDINGS: Images of the gallbladder show no evidence of gallstones. The gallbladder wall is mildly prominent, m easuring in the 3 to 4 mm range. The common duct measurement is not recorded however there is no evidence of biliary duct dilatation. The pancreas is obscured. The liver appears enlarged measuring up to 20 cm. An area of increased echo genicity in the liver adjacent to the gallbladder fossa is seen and is indeterminate, could represent an area of focal fatty infiltration or other etiologies such as a vascular lesion or hemangioma. Fol low-up CT abdomen is recommended given the history of abnormal liver function tests. The right kidney is imaged and is unremarkable. IMPRESSION: 1. No evidence of gallstones. There is thickening of the gallbladder wall and the technologist descri bes a positive Martin sign which could indicate acalculous cholecystitis. 2. Hepatomegaly. Area of abnormal increased echogenicity in the liver near the gallbladder fossa. Thi s is indeterminate by ultrasound. Recommend further evaluation with CT abdomen with and without contr ast. 3. Incidentally noted is evidence of a right pleural effusion. POS: [facility]
[2019-02-03] MEDS ORDERED: Meclizine HCl 25 MG TAB PO PRN (19:04)
--- NOTE | 2019-02-03 19:05 | PDOC.HOSPP ---
- Subjective Encounter Date: 02/03/19 Encounter Time: 16:00 Subjective: The patient is doing well with no complaints. Ambulated with PT and did well. STill has some dizziness and a mild persistent headache. Hasn't gotten meds for that yet. He denies chest pain - Objective Vital Signs & Weight: Vital Signs (12 hours) Temp Pulse Pulse Pulse Resp BP BP 02/03/19 15:15 97.4 F L 76 19 02/03/19 11:31 97.8 F 60 20 02/03/19 11:29 60 68 157/83 H 166/90 H 02/03/19 07:30 97.3 F L 61 20 BP BP BP BP Pulse Ox Pulse Ox 02/03/19 15:15 116/62 95 02/03/19 11:31 157/83 H 96 02/03/19 11:29 96 02/03/19 07:30 122/79 152/84 H 136/76 94 L Weight Weight 201 lb 9.6 oz I&O: 02/02/19 02/03/19 02/04/19 06:59 06:59 06:59 Intake Total 480 1310 Output Total 775 583 Balance -295 727 Result Diagrams: 02/03/19 05:47 02/03/19 05:47 Hospitalist ROS - Review of Systems Constitutional: denies: fever, chills - Medication Medications: Active Medications Generic Name Dose Route Start Last Admin Trade Name Freq PRN Reason Stop Dose Admin Aspirin 81 mg 02/03/19 09:00 02/03/19 09:17 Ecotrin PO 81 mg DAILY JAVON Administration Cholecalciferol 1,000 units 02/03/19 09:00 02/03/19 09:18 Vitamin D3 PO 1,000 units DAILY JAVON Administration Cyanocobalamin 1,000 mcg 02/03/19 09:00 02/03/19 09:18 Vitamin B-12 PO 1,000 mcg BID JAVON Administration Fluoxetine HCl 30 mg 02/03/19 09:00 02/03/19 09:18 Prozac PO 30 mg BID JAVON Administration Folic Acid 1 mg 02/03/19 09:00 02/03/19 09:18 Folvite PO 1 mg DAILY JAVON Administration Levothyroxine Sodium 100 mcg 02/03/19 06:00 02/03/19 04:20 Synthroid PO 100 mcg 0600 JAVON Administration Lisinopril 2.5 mg 02/03/19 09:00 02/03/19 09:18 Zestril PO 2.5 mg DAILY JAVON Administration Pantoprazole Sodium 40 mg 02/03/19 09:00 02/03/19 09:18 Protonix PO 40 mg DAILY JAVON Administration Saccharomyces Boulardii 250 mg 02/03/19 09:00 02/03/19 09:18 Florastor PO 250 mg DAILY JAVON Administration Senna/Docusate Sodium 2 tab 02/03/19 09:00 02/03/19 09:18 Senokot S PO 2 tab BID JAVON Administration Thiamine HCl 250 mg 02/03/19 09:00 02/03/19 09:18 Thiamine PO 250 mg BID JAVON Administration - Exam General Appearance: NAD, awake alert Eye: PERRL, anicteric sclera ENT: normocephalic atraumatic, no oropharyngeal lesions Neck: supple, symmetric, no JVD Heart: RRR, no murmur, no gallops, no rubs Respiratory: CTAB, no wheezes, no rales, no ronchi Gastrointestinal: soft, non-tender, non-distended Extremities: no cyanosis, no clubbing, no edema Skin: normal turgor, no lesions, no rashes Neurological: cranial nerve grossly intact, normal sensation to touch, no focal deficits, no new deficit Musculoskeletal - other findings: Wobbly on left leg Psychiatric: normal affect, normal behavior, A&O x 3, oriented to time Hosp A/P - Plan Chest x ray: small right pleural effusion , cardiomegaly, old left granulomatous disease CT head : no acute disease Abd Ultrasound: increased liver echogenicity . Possible acalculous cholecystitis This is an 83 year old male with history of alcoholism, depression, CKD, hypothryoidism, GERD who presents for evaluation of syncope Syncope - possibly mechanical from left leg weakness versus cardiac vs alcoholism Troponin elevation - EKG showed paced rhythm. Troponin elevated, ECHO done but report pending. Continue aspirin and atorvastatin. Will obtain cardiology consult given patient has pacemaker - CT head negative, orthostatics negative. Chest X ray shows small right pleural effusion - PT recommends home with PT - counseled patient on alcohol cessation - hold amitryptyline, hold lasix Dizziness - trial of meclizine Hepatomegaly Elevated ALP -US shows hepatomegaly, possible acalculous cholecystitis however patient denies abdominal pain. - however given alcohol history will check CT with and without contrast Anemia - .6 - continue folate and B12 supplements DIANE on CKD - improved down to 1.3 Alcoholism - place on ativan prn for withdrawal protocol Hypothyroidism - levothyroxine GERD - continue PPI Hyperlipidemia - continue atorvastatin DVT prophylaxis: ambulation Code status: full code. "Stop when its not working"
[2019-02-03 20:32] LABS: Troponin I 0.159 ng/mL (< 0.028)
[2019-02-03] MEDS: Atorvastatin Calcium 20 MG TAB PO SCH (20:44)
[2019-02-03] MEDS: Metoprolol Tartrate 50 MG TAB PO SCH (20:45)
[2019-02-03] MEDS: PATIENT'S HOME MEDICATION PO SCH (20:47)
--- NOTE | 2019-02-03 22:59 | CON ---
DATE OF CONSULTATION: HISTORY OF PRESENT ILLNESS: Claudio Mcdaniels is an 83-year-old white male, patient of Dr. Jaquez. He has a history of atrial fibrillation, but in July 2017, presented with severe bradycardia. He then underwent placement of a dual- chamber pacemaker by Dr. Roy. He has had problems with multiple falls in the past and currently is not anticoagulated. He had another such fall on the day of admission. He was coming back to the bathroom, just found himself on the floor. He does not remember falling. His pacemaker has been interrogated and continues to function normally with 100% ventricular pacing. However, it is of note that over approximately the last month since January 07, he has been in atrial tachycardia with rate of approximately 150 per minute. It does not appear that he has had any high ventricular rates. He denies any chest discomfort. He has also noted over the last 4 or 5 days significantly increasing peripheral edema. Also over the last 2 months, his creatinine is increased, 1.16 up to 1.65. PAST MEDICAL HISTORY: Hyperlipidemia, hypertension, history of atrial fibrillation, on anticoagulation in the past, obstructive sleep apnea, hypothyroidism. PAST SURGICAL HISTORY: Pacemaker placement, hernia repair, left heel surgery, hip surgery. MEDICATIONS: 1. Amitriptyline 100 at bedtime. 2. Lipitor 10 at bedtime. 3. Vitamin B12 1000 mcg b.i.d. 4. Fluoxetine 30 b.i.d. 5. Folic acid 0.8 daily. 6. Furosemide 40 every other day. 7. Lisinopril 2.5 mg daily. 8. Levothyroxine 100 mcg daily. 9. Omeprazole 40 daily. 10. KCl 20 mEq daily. 11. Florastor 250 daily. 12. Senokot S 2 tablets b.i.d. 13. Thiamine 250 b.i.d. ALLERGIES: NONE. REVIEW OF SYSTEMS: Otherwise unremarkable. PHYSICAL EXAMINATION: VITAL SIGNS: Blood pressure 157/83, pulse of 60. HEENT: PERRL. NECK: Supple. CHEST: Clear. CARDIAC: S1 and S2 normal without any S3, S4, murmurs. ABDOMEN: Normal bowel sounds without tenderness. EXTREMITIES: Reveal 1+ pretibial edema on the right, 2+ pretibial edema on the left. NEUROLOGIC: Grossly intact. LABORATORY DATA: EKG reveals ventricular pacing. Hemoglobin 12.6, hematocrit 38.2, white count 6900, platelets 200,000. Sodium 141, potassium 3.6, chloride 106, carbon dioxide 26, BUN 27, creatinine 1.36. Troponin I 0.198 (troponin Is are chronically elevated). BNP 768.5. IMPRESSION: 1. Syncopal episode. I doubt that this is due to pacemaker malfunction, is probably more orthostatic in nature. He is on extremely high dose of amitriptyline. 2. Acute kidney injury over the last several months. His cardiac output certainly may have fallen over the last month with being chronically in atrial tachycardia. 3. Atrial tachycardia for approximately one month. 4. Hypothyroidism. 5. Hyperlipidemia. 6. Hypertension. 7. Obstructive sleep apnea. 8. Pacemaker. PLAN: With his renal insufficiency, lisinopril will be discontinued and instead he will be placed on beta yogi in the hopes of stopping his atrial tachycardia. Consideration may also be given to the addition of digoxin. I have contacted [employer] to turn on the atrial therapies on his pacemaker. He will continue to be diuresed. Echo will be performed to reassess left ventricular function since he is 100% ventricularly paced. Job ID: [id number] MTDD
[2019-02-04] MEDS: HYDROcodone/Acetaminophen 5/325 mg Tablet PO PRN ×2 (00:35→11:44)
[2019-02-04] MEDS: Levothyroxine Sodium 100 MCG TAB PO SCH (05:09)
[2019-02-04] MEDS: Aspirin 81 mg Enteric Coated Tablet PO SCH (10:19)
[2019-02-04] MEDS: Cyanocobalamin (Vitamin B-12) 1,000 MCG TAB PO SCH ×2 (10:19→20:22)
[2019-02-04] MEDS: FLUoxetine HCl 10 MG CAP PO SCH ×2 (10:19→20:19)
[2019-02-04] MEDS: Metoprolol Tartrate 50 MG TAB PO SCH ×2 (10:20→20:21)
[2019-02-04] MEDS: Folic Acid 1 MG TAB PO SCH (10:20)
[2019-02-04] MEDS: Thiamine 100 MG TAB PO SCH ×2 (10:20→20:20)
[2019-02-04] MEDS: Senokot S 8.6-50 MG TAB PO SCH ×2 (10:20→20:20)
[2019-02-04] MEDS: Saccharomyces boulardii 250 MG CAP PO SCH (10:20)
--- NOTE | 2019-02-04 11:07 | CT ---
EXAM: CT Abdomen W Con PROVIDED CLINICAL HISTORY: Hepatomegaly, alcoholism. Abdominal pain. COMPARISON: None FINDINGS: There is a small left pleural effusion with volume loss at the left lung base. Multiple calcified gra nulomata are also seen at the left lung base. There is a loculated pleural fluid collection at the right lung base incompletely imaged. There is en hancement of the pleura in this region. Findings could be related to either infectious process such as empyema versus malignant ascites. There are is a heterogeneous masslike density measuring 3.1 cm at the right lung base which could rep resent a neoplastic process or focal area of infarction. Medially adjacent to this heterogeneous masslike density, there is a larger rounded area of increased density with multiple vessels as well a s multiple calcifications. This may be related to chronic rounded area of atelectasis with associated multiple calcified granulomata. However, this is incompletely imaged on this examination. Follow-up CT angiogram of the chest is recommended for further evaluation. The heart is mildly enlarged. Cardiac pacemaking leads are partially imaged. This examination is obtained in arterial phase of imaging which limits evaluation. However, no defini te focal hepatic lesion is appreciated. The liver is enlarged in craniocaudal dimensions measuring 19.6 cm. The spleen, pancreas, and bilateral adrenal glands demonstrate a normal CT appearance for phase of im aging. There is scarring present involving the inferior pole right kidney. There is a 2.9 cm hypodense lesio n seen involving the midportion left kidney demonstrating fluid attenuation most compatible with a cyst. Smaller fluid attenuation density is seen in the superior pole left kidney also most compatible with a cyst. There is minimal renal cortical scarring also present on the left. Vascular calcifications are seen in the abdominal aorta, but the abdominal aorta is normal in caliber . Small amount of intraperitoneal free fluid is seen within the abdomen adjacent to the liver and splee n. The calcifications are seen within the central mesentery which are closely adjacent to the transverse colon may represent fecaliths as there is evidence of colonic diverticulosis. No lymphadenopathy or fluid collection is seen in the abdomen or pelvis. Multilevel degenerative changes are seen in the spine. There is a comminuted burst fracture involving the L4 vertebral body, and this fracture was visualized on CT lumbar spine on 04/21/2018. There has been slight progression in height loss of this vertebral body fracture predominantly involving the mi dportion of the vertebral body. IMPRESSION: 1. Heterogeneous masslike density right lung base measuring 3 cm which may represent neoplastic proce ss or possibly focal pulmonary infarction. A follow-up CT angiogram of the thorax is recommended. 2. Rounded area of increased density incompletely imaged at the posteromedial right lung base with mu ltiple calcifications and prominent vessel also present. This may represent chronic rounded area of atelectasis, but this is incompletely imaged or further evaluated. This can also be reevaluated on fo llow-up CTA of the chest. 3. Loculated right pleural fluid collection with enhancement of the the pleura. This could be related to infectious or inflammatory process. Malignant ascites could also give a similar appearance. 4. Small left pleural effusion. 5. Cardiomegaly. 6. Small amount of ascites. 7. Left renal cysts. 8. Hepatomegaly. 9. Burst fracture L4 vertebral body. This fracture was seen on prior study on 04/21/2018. Degree of ve rtical height loss is slightly increased centrally.
[2019-02-04 14:14] LABS: Hemoglobin 14.1 g/dL (14.0-18.0); Mean Corpuscular HGB CONC 32.2 g/dL (32.0-36.0); Mean Corpuscular Hemoglobin 31.5 pg (27.0-31.0); Mean Corpuscular Volume 97.8 fL (78.0-98.0); Mean Platelet Volume 7.3 fL (7.4-10.4); Platelet Count 229 thou/uL (130-400); RBC Distribution Width 14.4 % (11.5-14.5); Red Blood Cell (RBC) Count 4.48 mill/uL (4.70-6.10); White Blood Cell (WBC) Count 7.5 thou/uL (4.8-10.8)
[2019-02-04 14:33] LABS: Anion Gap 14 mmol/L (10-20); BUN (Urea Nitrogen) 22 mg/dL (8.4-25.7); Calc. Creatinine Clearance 62 mL/min (70-130); Carbon Dioxide 26 mmol/L (23-31); Chloride 104 mmol/L (98-107); Estimated GFR-MDRD 58; Glucose 97 mg/dL (83-110); Potassium 4.3 mmol/L (3.5-5.1); Sodium 140 mmol/L (136-145)
[2019-02-04] MEDS: Sodium Chloride 0.9% 1,000 ML IV SCH (14:49)
--- NOTE | 2019-02-04 15:57 | PDOC.CPN ---
- Subjective Date: 02/04/19 Time: 15:55 Interval history: No new issues. Daughter tells me his right leg was very very swollen yesterday after the fall. No angina, no palpitations. - Review of Systems General: denies: fever/chills, weight/appetite/sleep changes, night sweats, fatigue Respiratory: denies: cough, congestion, shortness of breath, exercise intolerance Cardiovascular: denies: chest pain, palpitation, edema, paroxysmal nocturnal dyspnea, orthopnea Gastrointestinal: denies: nausea, vomiting, diarrhea, constipation, abd pain, GI bleeding Musculoskeletal: denies: pain, tenderness, stiffness, swelling, arthritis/ arthralgias Neurological: denies: numbness, syncope, seizure, weakness - Objective Allergies/Adverse Reactions: Allergies Allergy/AdvReac Type Severity Reaction Status Date / Time No Known Allergies Allergy Unverified 02/02/19 19:49 Visit Medications: Current Medications Hydrocodone Bitart/Acetaminophen ([place] 5/325) 1 tab PO Q4HR PRN PRN Reason: Headache Last Admin: 02/04/19 11:44 Dose: 1 tab Aspirin (Ecotrin) 81 mg PO DAILY ON LICENSE OF [facility] Last Admin: 02/04/19 10:19 Dose: 81 mg Atorvastatin Calcium (Lipitor) 10 mg PO HS ON LICENSE OF [facility] Last Admin: 02/03/19 20:44 Dose: 10 mg Cholecalciferol (Vitamin D3) 1,000 units PO DAILY ON LICENSE OF [facility] Last Admin: 02/04/19 10:19 Dose: 1,000 units Cyanocobalamin (Vitamin B-12) 1,000 mcg PO BID ON LICENSE OF [facility] Last Admin: 02/04/19 10:19 Dose: 1,000 mcg Fluoxetine HCl (Prozac) 30 mg PO BID ON LICENSE OF [facility] Last Admin: 02/04/19 10:19 Dose: 30 mg Folic Acid (Folvite) 1 mg PO DAILY ON LICENSE OF [facility] Last Admin: 02/04/19 10:20 Dose: 1 mg Sodium Chloride (Normal Saline 0.9%) 1,000 mls @ 75 mls/hr IV .[id number] ON LICENSE OF [facility] Last Admin: 02/04/19 14:49 Dose: 1,000 mls Levothyroxine Sodium (Synthroid) 100 mcg PO 0600 ON LICENSE OF [facility] Last Admin: 02/04/19 05:09 Dose: 100 mcg Lorazepam (Ativan) 1 mg PO Q2H PRN PRN Reason: Alcohol Withdrawal Meclizine HCl (Antivert) 25 mg PO Q8H PRN PRN Reason: Dizziness Metoprolol Tartrate (Lopressor) 50 mg PO BID ON LICENSE OF [facility] Last Admin: 02/04/19 10:20 Dose: 50 mg Pantoprazole Sodium (Protonix) 40 mg PO DAILY ON LICENSE OF [facility] Last Admin: 02/04/19 10:20 Dose: 40 mg Patient Own Medication (Patient's Home Medication) 500 each PO HS ON LICENSE OF [facility] Last Admin: 02/03/19 20:47 Dose: Not Given Polyethylene Glycol (Miralax) 17 gm PO DAILY PRN PRN Reason: Constipation Saccharomyces Boulardii (Florastor) 250 mg PO DAILY ON LICENSE OF [facility] Last Admin: 02/04/19 10:20 Dose: 250 mg Senna/Docusate Sodium (Senokot S) 2 tab PO BID ON LICENSE OF [facility] Last Admin: 02/04/19 10:20 Dose: 2 tab Thiamine HCl (Thiamine) 250 mg PO BID ON LICENSE OF [facility] Last Admin: 02/04/19 10:20 Dose: 250 mg Vital Signs & Weight: Vital Signs Temp Pulse Pulse Pulse Resp BP BP 02/04/19 15:32 97.7 F 60 20 02/04/19 11:28 97.5 F L 68 20 02/04/19 10:57 63 60 109/72 148/95 H 02/04/19 07:32 97.5 F L 60 20 02/04/19 05:09 97.4 F L 60 14 BP Pulse Ox 02/04/19 15:32 117/69 93 L 02/04/19 11:28 117/73 97 02/04/19 10:57 02/04/19 07:32 135/79 96 02/04/19 05:09 142/87 H 93 L Weight 201 lb 9.6 oz - Physical Exam General: no apparent distress HEENT: mucus membranes moist, normocephaly Neck: supple neck, midline trachea Cardiac: regular rate and rhythm Lungs: clear to auscultation Neuro: no lateralizing findings Abdomen: active bowel sounds, soft, non-tender Extremities: 2+ LE edema Skin: clear Musculoskeletal: no pain - Labs Result Diagrams: 02/04/19 14:01 02/04/19 14:01 Troponin/CKMB CK-MB (CK-2) 4.5 ng/mL (0-6.6) 02/02/19 14:00 Troponin I 0.159 ng/mL (< 0.028) H 02/03/19 19:48 - Telemetry Sinus rhythms and dysrhythmias: other (V paced underlying afib.) - Assessment/Plan Assessment/Plan: 1. Afib 2. Frequent Falls 3. Possible lung mass vrs PE. PLAN; - No anticoagulation in the past due to frequent falls. - Will consult EP to see if he is a candidate for Lariat vs Watchman. - Venous dupplex US of the legs to asses for DVT - Lung mass being evaluated by primary team.
--- NOTE | 2019-02-04 16:58 | ULT ---
EXAM: Bilateral lower extremity venous Doppler US HISTORY: bilateral lower extremity edema FINDINGS: Grayscale, color-flow, Doppler evaluation, spectral analysis of the bilateral lower extremities venou s structures is performed with 2-D imaging. The bilateral common femoral, superficial femoral, popliteal, posterior tibial, proximal greater saphenous and profunda femoral veins are imaged. There is normal luminal compressibility, flow, and augmentation in the visualized deep venous structu res of the bilateral lower extremities. IMPRESSION: No evidence of a deep vein thrombosis in either lower extremity.
[2019-02-04] MEDS: Atorvastatin Calcium 20 MG TAB PO SCH (20:22)
[2019-02-04] MEDS: PATIENT'S HOME MEDICATION PO SCH (20:24)
--- NOTE | 2019-02-04 23:23 | PDOC.HOSPP ---
- Subjective Encounter Date: 02/04/19 Encounter Time: 17:00 Subjective: THe patient denies complaints. STill has some dizziness while walking but improved. Still slightly unsteady on feet. No shortness of breath or chest pain. Explained CT abdomen results regarding lung mass, per radiology could be PE versus mass. Hydrating for Ct chest with contrast in am - Objective Vital Signs & Weight: Vital Signs (12 hours) Temp Pulse Resp BP Pulse Ox 02/04/19 19:49 97.1 F L 60 14 128/76 99 02/04/19 19:13 96 02/04/19 15:32 97.7 F 60 20 117/69 93 L 02/04/19 11:28 97.5 F L 68 20 117/73 97 Weight Weight 201 lb 9.6 oz I&O: 02/03/19 02/04/19 02/05/19 06:59 06:59 06:59 Intake Total 480 1310 1565 Output Total 775 583 Balance -874 910 3461 Result Diagrams: 02/04/19 14:01 02/04/19 14:01 Hospitalist ROS - Review of Systems Constitutional: reports: chills. denies: fever - Medication Medications: Active Medications Generic Name Dose Route Start Last Admin Trade Name Freq PRN Reason Stop Dose Admin Hydrocodone Bitart/Acetaminophen 1 tab 02/02/19 21:02 02/04/19 11:44 [place] 5/325 PO 1 tab Q4HR PRN Administration Headache Aspirin 81 mg 02/03/19 09:00 02/04/19 10:19 Ecotrin PO 81 mg DAILY JAVON Administration Atorvastatin Calcium 10 mg 02/03/19 21:00 02/04/19 20:22 Lipitor PO 10 mg HS JAVON Administration Cholecalciferol 1,000 units 02/03/19 09:00 02/04/19 10:19 Vitamin D3 PO 1,000 units DAILY JAVON Administration Cyanocobalamin 1,000 mcg 02/03/19 09:00 02/04/19 20:22 Vitamin B-12 PO 1,000 mcg BID JAVON Administration Fluoxetine HCl 30 mg 02/03/19 09:00 02/04/19 20:19 Prozac PO 30 mg BID JAVON Administration Folic Acid 1 mg 02/03/19 09:00 02/04/19 10:20 Folvite PO 1 mg DAILY JAVON Administration Sodium Chloride 1,000 mls @ 75 mls/hr 02/04/19 14:00 02/04/19 14:49 Normal Saline 0.9% IV 1,000 mls .[id number] JAVON Administration Levothyroxine Sodium 100 mcg 02/03/19 06:00 02/04/19 05:09 Synthroid PO 100 mcg 0600 JAVON Administration Metoprolol Tartrate 50 mg 02/03/19 21:00 02/04/19 20:21 Lopressor PO 50 mg BID JAVON Administration Pantoprazole Sodium 40 mg 02/03/19 09:00 02/04/19 10:20 Protonix PO 40 mg DAILY JAVON Administration Patient Own Medication 500 each 02/03/19 21:00 02/04/19 20:24 Patient's Home Medication PO Not Given HS JAVON Saccharomyces Boulardii 250 mg 02/03/19 09:00 02/04/19 10:20 Florastor PO 250 mg DAILY JAVON Administration Senna/Docusate Sodium 2 tab 02/03/19 09:00 02/04/19 20:20 Senokot S PO 2 tab BID JAVON Administration Thiamine HCl 250 mg 02/03/19 09:00 02/04/19 20:20 Thiamine PO 250 mg BID JAVON Administration - Exam General Appearance: NAD, awake alert Eye: PERRL, anicteric sclera ENT: normocephalic atraumatic, no oropharyngeal lesions Neck: supple, symmetric, no JVD, no lymphadenopathy Heart: RRR, no murmur, no gallops, no rubs Respiratory: CTAB, no wheezes, no rales, no ronchi Gastrointestinal: soft, non-tender, non-distended Extremities: no cyanosis, no clubbing, no edema Skin: normal turgor, no lesions Neurological: cranial nerve grossly intact, normal sensation to touch, no weakness, no focal deficits Musculoskeletal: normal tone, normal strength, no muscle wasting Psychiatric: normal affect, normal behavior, A&O x 3, oriented to person, oriented to place Hosp A/P - Plan Chest x ray: small right pleural effusion , cardiomegaly, old left granulomatous disease CT head : no acute disease Abd Ultrasound: increased liver echogenicity . Possible acalculous cholecystitis ECHO: moderate MR, severe TR, moderate AR. Severe concentric LVH. EF 60-65% Doppler US: no DVT CT abdomen: masslike density in the right lung neoplastic versus focal pulmonary infarction This is an 83 year old male with history of alcoholism, depression, CKD, hypothryoidism, GERD who presents for evaluation of syncope Syncope - possibly atrial tachycardia vs mechanical vs PE Troponin elevation Atrial tachycardia - EKG showed paced rhythm. Troponin elevated, ECHO shows moderate AR and MR. Continue aspirin and atorvastatin. Pacemaker interrogation done, patient has atrial tachycardia. EP consult per cardiology - CT head negative, orthostatics negative. Chest X ray shows small right pleural effusion - will check CTA chest to rule out PE - PT recommends home with PT - counseled patient on alcohol cessation - hold amitryptyline, hold lasix Right lung mass with large pleural effusion - noted on CT abdomen. Will consult pulmonary for diagnostic tap. May be malignancy? -alternatively could be PE but less likely given that mass is vascular. Will check CTA chest tomorrow Dizziness - trial of meclizine Hepatomegaly Elevated ALP -US shows hepatomegaly, possible acalculous cholecystitis however patient denies abdominal pain. Anemia - resolved - continue folate and B12 supplements DIANE on CKD - resolved down to 1.2 Alcoholism - place on ativan prn for withdrawal protocol Hypothyroidism - levothyroxine GERD - continue PPI Hyperlipidemia - continue atorvastatin DVT prophylaxis: ambulation Code status: full code. "Stop when its not working"
[2019-02-05] MEDS: Sodium Chloride 0.9% 1,000 ML IV SCH ×2 (05:19→15:33)
[2019-02-05] MEDS: Levothyroxine Sodium 100 MCG TAB PO SCH (05:19)
[2019-02-05 05:49] LABS: Anion Gap 13 mmol/L (10-20); BUN (Urea Nitrogen) 25 mg/dL (8.4-25.7); Calc. Creatinine Clearance 50 mL/min (70-130); Calcium 8.9 mg/dL (7.8-10.44); Carbon Dioxide 26 mmol/L (23-31); Chloride 105 mmol/L (98-107); Estimated GFR-MDRD 45; Glucose 112 mg/dL (83-110); Potassium 4.3 mmol/L (3.5-5.1); Sodium 140 mmol/L (136-145)
[2019-02-05] MEDS: HYDROcodone/Acetaminophen 5/325 mg Tablet PO PRN (07:27)
[2019-02-05] MEDS: Thiamine 100 MG TAB PO SCH ×2 (07:54→21:32)
[2019-02-05] MEDS: Senokot S 8.6-50 MG TAB PO SCH ×2 (07:55→20:42)
[2019-02-05] MEDS: Folic Acid 1 MG TAB PO SCH (07:56)
[2019-02-05] MEDS: Saccharomyces boulardii 250 MG CAP PO SCH (07:56)
[2019-02-05] MEDS: Cyanocobalamin (Vitamin B-12) 1,000 MCG TAB PO SCH ×2 (07:56→20:42)
[2019-02-05] MEDS: Aspirin 81 mg Enteric Coated Tablet PO SCH (07:57)
[2019-02-05] MEDS: Metoprolol Tartrate 50 MG TAB PO SCH ×2 (07:57→20:42)
[2019-02-05] MEDS: FLUoxetine HCl 10 MG CAP PO SCH ×2 (09:11→20:42)
--- NOTE | 2019-02-05 10:32 | CT ---
CTA Angio Chest W WO Con History: Lung mass. Syncope. Evaluate for embolism Comparison: CT examination of the abdomen prior day Findings: CT angiogram chest performed after the intravenous ministration of contrast. 3-D rendering provided.4 there appears to be a large eccentric thrombus in the right main pulmonary artery with webs seen to the pulmonary trunk. There is eccentric thrombus extending to the right middle lobe and right lower lobe pulmonary arteries. There is mixing artifact right lower lobe pulmonary artery with occlusion at the consolidation shipmaster ior segment right lower lobe. There is a intraluminal defect in the anterior segment right lower lobe which is somewhat eccentric. There are 2 separate masses within the right lower lobe of both abutting the pleural surface and on t he coronal images are surrounded by round atelectasis. The largest has numerous calcified granulomas and measures up to 5.5 cm. The smaller more distal nodule does not have internal calcifica tions and measures up to 3.1 cm. Scattered calcified granulomas throughout the lungs. Large right pleural effusion with abnormal pleural enhancement. Small left effusion. Heart size is enlarged. No pericardial effusion. No mediastinal adenopathy. Moderate degenerative changes of both glenohumeral joints. The sternum and manubrium are intact. No acute displaced rib fracture. Mild background pulmonary edema. Impression: 1. Large peripheral eccentric thrombus in the right main pulmonary artery with fingerlike extension i nto the lower right lower and middle lobe pulmonary vasculature with 2 separate peripheral round masses which have the appearance of pulmonary infarctions. Follow-up PET/CT may be beneficial as the smaller more peripheral nodule does not have internal calcifications. Bronchoscopy may also be beneficial. 2. Large right layering pleural effusion with abnormal pleural enhancement reflect superimposed empye ma or pleural inflammation from infarction. 3. Mild flattening of the interventricular septum and reflux of contrast within the suprahepatic IVC, new from the 2017 examination. Findings are indicative of right heart strain. Code CR: Nurse notified of findings via telephone at 10:25 AM.
[2019-02-05] MEDS ORDERED: Fioricet 325/50/40 mg Tablet PO SCH (11:00)
--- NOTE | 2019-02-05 13:13 | CON ---
DATE OF CONSULTATION: 02/05/2019 CONSULTING PHYSICIAN: Eloise Metcalf MD REASON FOR CONSULTATION: Abnormal CT scan of the chest. The following encompassed 75 minutes time, of that time, greater 50% spent with the patient and/or the patient in the hospital and/or speaking with other providers involved in the case. HISTORY OF PRESENT ILLNESS: The patient is an 83-year-old male who was initially hospitalized here on 02/02/2019. He says he was essentially sent because he kept falling at home. He was having syncopal episodes. He says he has fallen over 100 times in the last year and has hit his head frequently. As part of this, he underwent a CT of the abdomen, which showed a suspicious lesion in the inferior aspect of the right lung. This was followed by a CT of the chest today, which demonstrated what appears to be a chronic thrombus in the right main pulmonary artery extending down to the right lower lobe. The contrast filling is not very good. It leads to the suspicious area in the right lower lobe, which looks like it is probably pulmonary infarction. He has a chronic right pleural effusion that has been there for a couple of years looking back at old films. PAST MEDICAL HISTORY: 1. Alcohol abuse. 2. Atrial tachycardia. 3. Hypertension. 4. Chronic obstructive pulmonary disease. 5. Hypothyroidism. PAST SURGICAL HISTORY: 1. Pacemaker placement. 2. Bilateral hip replacement. 3. Has had some type of left heel surgery. FAMILY MEDICAL HISTORY: Remarkable for cancer in his mother and father committed suicide. SOCIAL HISTORY: He drinks at least 6 shots of whiskey or bourbon per day. He is a never smoker. 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 He basically stays at home and drinks alcohol all day long. He uses a cane or walker to walk, but frequently falls during transfer. REVIEW OF SYSTEMS: He has had no fever, chills, nausea, vomiting, chest pain, hematemesis, melena, hematochezia, hematuria, or dysuria. PHYSICAL EXAMINATION: VITAL SIGNS: Temperature 97.4, pulse 64, respirations 20, O2 saturation 99% on room air, blood pressure 129/75. He is 6 feet tall, weighs 201 pounds and has a body mass index of 27.3. HEENT: Pupils are reactive. Sclerae anicteric. Oropharynx is clear with poor dentition. NECK: No adenopathy or JVD. LUNGS: Clear to auscultation except for mildly diminished breath sounds in the bases posteriorly. CARDIOVASCULAR: S1-S2 regular without murmurs. Pacemaker palpable in left upper quadrant chest. ABDOMEN: Soft and nontender. No hepatosplenomegaly. EXTREMITIES: No clubbing, cyanosis, or edema. LABORATORY DATA: Sodium 140, potassium 4.3, chloride 105, CO2 of 26, BUN 25, creatinine 1.5, glucose 112. White blood cell count 7.5, hematocrit 43.9, and platelet count 229. Tox screen was positive for tricyclics and opiates. A CT was reviewed by me personally. Findings are as noted above. ASSESSMENT: 1. 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 2. Chronic bilateral pleural effusions. 3. Alcohol abuse. 4. Significant fall risk. 5. Moderate aortic regurgitation by echo. 6. Moderate mitral regurgitation by echo. The valvular heart disease probably signifies left-sided cardiac dysfunction. RECOMMENDATIONS: Ideally, it would be nice to anticoagulate the patient, but I feel he is a significant fall risk. I doubt that his falls are due to syncopal effects of the pulmonary emboli. He also has significant alcohol abuse, which may be leading to the falls. If he is considered excess fall risk, then an IVC filter would have to be placed rather than anticoagulating the patient. I discussed the above with the daughter and with Dr. Metcalf. Further disposition to follow. Job ID: [id number]
--- NOTE | 2019-02-05 18:00 | MRI ---
MRI OF BRAIN PERFORMED WITHOUT CONTRAST ENHANCMENT: 02/05/19 HISTORY: Headache, syncope. There is generalized ventricular and sulcal prominence. There is some mild increased T2 and FLAIR sig nal change within the periventricular white matter. There is no signs of hemorrhage or mass effect. T here is no signs of any acute infarct. No extra-axial fluid collections. The pituitary is normal in appearance. Mastoid air cells and visualized sinuses are clear. IMPRESSION: No acute intracranial abnormalities. POS: [facility]
--- NOTE | 2019-02-05 19:03 | PDOC.EVN ---
Event Note - Event Note Event Note: Responded to [place] Patient noted to be unresponsive. BP was noted to be 180, was given IV hydralazine and pressure dropped to 100. Patient admitted for GI bleed and coffee ground emesis. Had hemorrhage in gallbladder fossa, but per Dr. Luong expected from recent cholecystectomy. On arrival: - temp - BP 116/70, HR 127, o2 sat 94% room air, RR 18 Patient: - appears very pale, not really following commands. Has baseline left and right hemiparesis. - CV: RRR, no murmurs, rubs, gallops - Lungs: CTAB - Abdomen: + BS, soft, nontender, nondistended - Extremities: no edema Stat EKG shows ST depressions in V3-V6 that are new. Repeat CBC, CMP, troponin ordered. Dr. Polo notified, plan to transfer to ICU. Needs STAT cardiology consult for NSTEMi, call Dr. Luong and GI since patient appears to be re-bleeding clinically. IV fluid bolus ordered.
[2019-02-05] MEDS ORDERED: Meropenem 2 GM in Sodium Chloride 0.9% 100 ML IVPB SCH (20:00)
[2019-02-05 20:25] LABS: CKMB 5.8 ng/mL (0-6.6)
[2019-02-05] MEDS: Atorvastatin Calcium 20 MG TAB PO SCH (20:41)
[2019-02-05] MEDS: PATIENT'S HOME MEDICATION PO SCH (20:47)
--- NOTE | 2019-02-05 21:25 | PDOC.HOSPP ---
- Subjective Encounter Date: 02/05/19 Encounter Time: 21:23 non-verbal Subjective: The patient reports persistent headache. Fioricet seems to help some. Thinks maybe fluids making it worst. Pain starting to go in his neck now. Dizziness better. Patient states neck is bad Described CTA findings to patient. He is high risk of adverse affects for anticoagulation, also at risk for clots with none. Patient asks is there happy medium? Currently no short of breath. No chest pain. - Objective Vital Signs & Weight: Vital Signs (12 hours) Temp Pulse Resp BP Pulse Ox 02/05/19 15:15 97.6 F 65 18 130/72 98 02/05/19 11:51 97.3 F L 68 20 135/79 94 L Weight Weight 201 lb 9.6 oz I&O: 02/04/19 02/05/19 02/06/19 06:59 06:59 06:59 Intake Total 1310 1565 Output Total 583 Balance 727 1565 Result Diagrams: 02/04/19 14:01 02/05/19 04:54 Hospitalist ROS - Review of Systems Constitutional: denies: fever, chills - Medication Medications: Active Medications Generic Name Dose Route Start Last Admin Trade Name Freq PRN Reason Stop Dose Admin Aspirin 81 mg 02/03/19 09:00 02/05/19 07:57 Ecotrin PO 81 mg DAILY JAVON Administration Atorvastatin Calcium 10 mg 02/03/19 21:00 02/05/19 20:41 Lipitor PO 10 mg HS JAVON Administration Cholecalciferol 1,000 units 02/03/19 09:00 02/05/19 07:56 Vitamin D3 PO 1,000 units DAILY JAVON Administration Cyanocobalamin 1,000 mcg 02/03/19 09:00 02/05/19 20:42 Vitamin B-12 PO 1,000 mcg BID JAVON Administration Fluoxetine HCl 30 mg 02/03/19 09:00 02/05/19 20:42 Prozac PO 30 mg BID JAVON Administration Folic Acid 1 mg 02/03/19 09:00 02/05/19 07:56 Folvite PO 1 mg DAILY JAVON Administration Levothyroxine Sodium 100 mcg 02/03/19 06:00 02/05/19 05:19 Synthroid PO 100 mcg 0600 JAVON Administration Metoprolol Tartrate 50 mg 02/03/19 21:00 02/05/19 20:42 Lopressor PO 50 mg BID JAVON Administration Pantoprazole Sodium 40 mg 02/03/19 09:00 02/05/19 07:57 Protonix PO 40 mg DAILY JAVON Administration Patient Own Medication 500 each 02/03/19 21:00 02/05/19 20:47 Patient's Home Medication PO Not Given HS JAVON Saccharomyces Boulardii 250 mg 02/03/19 09:00 02/05/19 07:56 Florastor PO 250 mg DAILY JAVON Administration Senna/Docusate Sodium 2 tab 02/03/19 09:00 02/05/19 20:42 Senokot S PO 2 tab BID JAVON Administration Thiamine HCl 250 mg 02/03/19 09:00 02/05/19 07:54 Thiamine PO 250 mg BID JAVON Administration - Exam General Appearance: NAD, awake alert Eye: PERRL, anicteric sclera ENT: normocephalic atraumatic Neck: supple, symmetric, no JVD Heart: RRR, no murmur, no gallops, no rubs Respiratory: CTAB, no wheezes, no rales, no ronchi Gastrointestinal: soft, non-tender, non-distended, normal bowel sounds Extremities: no cyanosis, no clubbing, no edema Skin: normal turgor, no lesions, no rashes Neurological: cranial nerve grossly intact, normal sensation to touch, no focal deficits, no new deficit Musculoskeletal: normal tone, normal strength Psychiatric: normal affect, normal behavior Hosp A/P - Plan Chest x ray: small right pleural effusion , cardiomegaly, old left granulomatous disease CT head : no acute disease Abd Ultrasound: increased liver echogenicity . Possible acalculous cholecystitis ECHO: moderate MR, severe TR, moderate AR. Severe concentric LVH. EF 60-65% Doppler US: no DVT CT abdomen: masslike density in the right lung neoplastic versus focal pulmonary infarction CTA: embolus in pulmonary artery with two masses representing pulmonary infarction. Layering effusion This is an 83 year old male with history of alcoholism, depression, CKD, hypothryoidism, GERD who presents for evaluation of syncope Syncope - possibly atrial tachycardia vs mechanical vs PE Troponin elevation Atrial tachycardia - EKG showed paced rhythm. Troponin elevated, ECHO shows moderate AR and MR. Continue aspirin and atorvastatin. Pacemaker interrogation done, patient has atrial tachycardia. EP consult per cardiology currently pending - CT head negative, orthostatics negative. Chest X ray shows small right pleural effusion - CTA shows pulmlonary embolism with infarction and layering effusion. Per Dr. 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 Anemia - resolved - continue folate and B12 supplements DIANE on CKD - resolved down to 1.2 Alcoholism - place on ativan prn for withdrawal protocol Hypothyroidism - levothyroxine GERD - continue PPI Hyperlipidemia - continue atorvastatin Dispo: d/c after EP Consult DVT prophylaxis: ambulation Code status: full code. "Stop when its not working"
[2019-02-05] MEDS: Fioricet 325/50/40 mg Tablet PO PRN (21:33)
[2019-02-05 22:48] LABS: Troponin I 0.145 ng/mL (< 0.028)
[2019-02-06] MEDS: Levothyroxine Sodium 100 MCG TAB PO SCH (05:11)
[2019-02-06 06:05] LABS: Anion Gap 15 mmol/L (10-20); BUN (Urea Nitrogen) 30 mg/dL (8.4-25.7); Calc. Creatinine Clearance 52 mL/min (70-130); Carbon Dioxide 23 mmol/L (23-31); Chloride 106 mmol/L (98-107); Estimated GFR-MDRD 47; Glucose 111 mg/dL (83-110); Potassium 4.3 mmol/L (3.5-5.1); Sodium 140 mmol/L (136-145)
[2019-02-06] MEDS: Saccharomyces boulardii 250 MG CAP PO SCH (09:00)
[2019-02-06] MEDS: Folic Acid 1 MG TAB PO SCH (09:00)
[2019-02-06] MEDS: Cyanocobalamin (Vitamin B-12) 1,000 MCG TAB PO SCH ×2 (09:01→21:36)
[2019-02-06] MEDS: Thiamine 100 MG TAB PO SCH ×2 (09:01→21:37)
[2019-02-06] MEDS: FLUoxetine HCl 10 MG CAP PO SCH ×2 (09:01→21:36)
[2019-02-06] MEDS: Metoprolol Tartrate 50 MG TAB PO SCH ×2 (09:02→21:36)
[2019-02-06] MEDS: Aspirin 81 mg Enteric Coated Tablet PO SCH (09:02)
[2019-02-06] MEDS: Polyethylene Glycol 3350 17 GM Packet PO SCH (09:02)
[2019-02-06] MEDS: Senokot S 8.6-50 MG TAB PO SCH ×2 (09:02→21:37)
--- NOTE | 2019-02-06 09:49 | CON ---
DATE OF CONSULTATION: HISTORY OF PRESENT ILLNESS: An 83-year-old gentleman with chronic atrial fibrillation, having a pacemaker placed by Dr. Roy and Dr. Jaquez in the past. He has had spotty followup care, although has been admitted to the hospital several times in the past year for falls. At this time, he was noted to have a slight enzyme elevation. He underwent a CTA of his chest showing a rather large right main pulmonary artery pulmonary embolus with ultrasound of his leg showing no DVT. He was deemed an acceptable candidate for anticoagulation last year related to his atrial fibrillation and once again due to his falls, alcohol use, he is also not considered an anticoagulation patient. PAST MEDICAL HISTORY: Otherwise includes sleep apnea, hypertension, hyperlipidemia, hypothyroidism, and atrial fibrillation. PAST SURGICAL HISTORY: He has had a previous surgery on his left heel, attempted ablation as well as a hernia repair. SOCIAL HISTORY: He lives with his daughter in [place], [place]. Drinks daily. PHYSICAL EXAMINATION: GENERAL: On examination, he is alert, cooperative, elderly gentleman, wearing a hearing aid. NECK: No carotid bruits. CARDIAC: Regular rate and rhythm related to his pacemaker with no audible murmurs. ABDOMEN: Obese and nontender. EXTREMITIES: He has 1+ edema, pitting in both lower legs. Creatinine 1.4. No iodine allergies. Discussed IVC filter placement, risks, complications, and expectations with the patient and also spoke with his daughter over the phone, Doreen. Doreen states that she has talked with two other siblings. They all agree with IVC filter placement. We will plan on permanent filter placement tomorrow. Additional finding, cardiac echo shows normal left ventricular systolic function with moderate AI and mild MR. Job ID: [id number]
--- NOTE | 2019-02-06 13:58 | CON ---
DATE OF CONSULTATION: 02/06/2019 This consult was done via telemedicine. CHIEF COMPLAINT: Headache. HISTORY OF PRESENT ILLNESS: It is unclear why Neurology consult was requested, but after discussion with the nurse, we understood that this consult was requested for headache and evaluation of a concussion he suffered months ago. The patient comes in with a syncopal event and he is currently being worked up for cardiac issues and he does have cardiac dysrhythmia. As far as neurological symptoms, he has chronic memory problems. He also was knocked out with a head injury several months ago and since that time, his memory got worse. He has developed a headache in the top of the head transmitting to the back of his neck 99% of the time. Headache severity is between 8 to 10 on a daily basis. The patient did not have any numbness, weakness, or visual changes or any other symptoms. PREVIOUS MEDICAL HISTORY: The patient is alcoholic. Drinks alcohol on a daily basis. Starts to drink alcohol at around 5:00 p.m., takes 3 to 6 shots of alcohol per day; atrial tachycardia, hypertension, chronic obstructive pulmonary disease , and hypothyroidism. PAST SURGICAL HISTORY: He has a pacemaker and bilateral hip replacement was done. He had left heel surgery. FAMILY HISTORY: His mother from pneumonia at age 68. She had four pneumonias within the same year. His father committed suicide at 59. The patient's daughter and he is not sure why. The patient also has another four children, three girls and a boy, all are healthy. SOCIAL HISTORY: Lives with his daughter, who works maintenance technician 3rd shift. She is a chemistry laboratory technician in the lab. The patient drinks alcohol daily as noted. Nonsmoker. REVIEW OF SYSTEMS: PULMONARY: Positive for cough, which is chronic. GI: Negative for nausea, vomiting, or diarrhea. DERMATOLOGIC: Negative for any rash. ENDOCRINE: Negative for diabetes or thyroid dysfunction. OPHTHALMOLOGIC: Negative for vision problem. GENITOURINARY: Negative for dysuria. CARDIAC: Positive for atrial tachycardia. LABORATORY DATA: His workup so far; echocardiogram was completed and he has severe concentric left ventricular hypertrophy with a normal EF and mild atrial dilatation and aortic regurgitation and he did have an MRI of the brain, which was completed and MRI shows no acute intracranial abnormalities, generalized ventricular and sulcal prominence, and mild increased T2 and FLAIR signal change within the periventricular white matter, but no acute infarct was noted. His carotid Doppler study is pending and lab workup; white count 7.5, hemoglobin 14.1, hematocrit 43.9, and platelet count 229. Chemistry; sodium 140, potassium 4.3, chloride 106, bicarb 23, BUN 30, creatinine 1.44, and glucose 111. Troponin I 0.145. Urine toxicology positive for tricyclics and opiates. PHYSICAL EXAMINATION: GENERAL APPEARANCE: A well-built, well-nourished man. VITAL SIGNS: Temperature 97.5, pulse is 62, and blood pressure 140/81. CHEST: Clear vesicular breathing. CARDIOVASCULAR: S1 and S2 heard. No murmurs. ABDOMEN: Soft and nontender. NEUROLOGIC: Higher intellectual functions. He was oriented to month and the year, not the date. He is not oriented to the city, but knew he was at a hospital. Cranial nerves II through XII. Normal extraocular movements. Tongue midline. No atrophy noted. Normal sensation of face bilaterally and normal extraocular movements. Pupils are 2 mm, reactive to light. Normal hearing bilaterally to finger rub. Motor; bulk, normal. Tone, normal. Strength 5/5 in iliopsoas, hamstrings, quadriceps, ankle dorsiflexion, plantar flexion, deltoid, biceps, triceps, wrist extension and flexion, finger extension and flexion. Sensory; normal to touch bilaterally. Cerebellar; normal [id number] and [id number]. The patient's deep tendon reflexes were absent. IMPRESSION AND PLAN: The patient is an 83-year-old man with chronic headaches since his head injury. He has multiple reasons for headache including alcohol use, presence of COPD, and history of head injury and at this time rather than he has tricyclics in his system and I am not sure where the tricyclics came from when he is not on any at nortriptyline or amitriptyline. We might want to explore that further. His examination is relatively normal except for cognitive issues, which may be chronic. At this time, I think we can add Topamax to help with the headache. I will start him on 25 mg b.i.d., prior to discharge, we can increase it to 50 mg b.i.d. He does need a Neurology followup with Dr. Rebolledo. Please make sure he does that. Call me if you have any further questions. Job ID: [id number] [facility]
--- NOTE | 2019-02-06 14:15 | PDOC.HOSPP ---
- Subjective Encounter Date: 02/06/19 Encounter Time: 14:13 Subjective: Patient seen and examined. No new complaints. No overnight events. No dizziness reported. No N/V. - Objective Vital Signs & Weight: Vital Signs (12 hours) Temp Pulse Resp BP BP Pulse Ox 02/06/19 12:25 97.5 F L 62 20 140/81 97 02/06/19 08:00 97.8 F 62 16 137/79 95 02/06/19 04:00 97.4 F L 60 18 133/77 94 L Weight Weight 201 lb 9.6 oz I&O: 02/05/19 02/06/19 02/07/19 06:59 06:59 05:59 Intake Total 1565 480 Balance 1565 480 Result Diagrams: 02/04/19 14:01 02/06/19 04:40 Hospitalist ROS - Medication Medications: Active Medications Generic Name Dose Route Start Last Admin Trade Name Freq PRN Reason Stop Dose Admin Acetaminophen/Butalbital/Caffeine 1 tab 02/05/19 15:30 02/05/19 21:33 Fioricet PO 02/10/19 15:31 1 tab Q4H PRN Administration Headache Aspirin 81 mg 02/03/19 09:00 02/06/19 09:02 Ecotrin PO 81 mg DAILY JAVON Administration Atorvastatin Calcium 10 mg 02/03/19 21:00 02/05/19 20:41 Lipitor PO 10 mg HS JAVON Administration Cholecalciferol 1,000 units 02/03/19 09:00 02/06/19 09:00 Vitamin D3 PO 1,000 units DAILY JAVON Administration Cyanocobalamin 1,000 mcg 02/03/19 09:00 02/06/19 09:01 Vitamin B-12 PO 1,000 mcg BID JAVON Administration Fluoxetine HCl 30 mg 02/03/19 09:00 02/06/19 09:01 Prozac PO 30 mg BID JAVON Administration Folic Acid 1 mg 02/03/19 09:00 02/06/19 09:00 Folvite PO 1 mg DAILY JAVON Administration Levothyroxine Sodium 100 mcg 02/03/19 06:00 02/06/19 05:11 Synthroid PO 100 mcg 0600 JAVON Administration Metoprolol Tartrate 50 mg 02/03/19 21:00 02/06/19 09:02 Lopressor PO 50 mg BID JAVON Administration Pantoprazole Sodium 40 mg 02/03/19 09:00 02/06/19 09:01 Protonix PO 40 mg DAILY JAVON Administration Patient Own Medication 500 each 02/03/19 21:00 02/05/19 20:47 Patient's Home Medication PO Not Given HS JAVON Polyethylene Glycol 17 gm 02/06/19 09:00 02/06/19 09:02 Miralax PO Not Given DAILY JAVON Saccharomyces Boulardii 250 mg 02/03/19 09:00 02/06/19 09:00 Florastor PO 250 mg DAILY JAVON Administration Senna/Docusate Sodium 2 tab 02/03/19 09:00 02/06/19 09:02 Senokot S PO Not Given BID JAVON Thiamine HCl 250 mg 02/03/19 09:00 02/06/19 09:01 Thiamine PO 250 mg BID JAVON Administration - Exam General Appearance: NAD Eye: anicteric sclera ENT: normocephalic atraumatic Neck: supple Heart: no murmur Respiratory: CTAB Gastrointestinal: soft Extremities: 2+ LE edema Skin: normal turgor Neurological: no weakness Musculoskeletal: normal tone Psychiatric: normal affect Hosp A/P (1) Syncope Code(s): R55 - SYNCOPE AND COLLAPSE Status: Acute (2) Hypothyroidism Code(s): E03.9 - HYPOTHYROIDISM, UNSPECIFIED Status: Acute (3) Chronic a-fib Code(s): I48.2 - CHRONIC ATRIAL FIBRILLATION * DO NOT USE * Status: Chronic (4) HTN (hypertension) Code(s): I10 - ESSENTIAL (PRIMARY) HYPERTENSION Status: Chronic Qualifiers: Hypertension type: essential hypertension Qualified Code(s): I10 - Essential (primary) hypertension (5) Atrial tachycardia Code(s): I47.1 - SUPRAVENTRICULAR TACHYCARDIA Status: Acute (6) Pulmonary embolism Code(s): I26.99 - OTHER PULMONARY EMBOLISM WITHOUT ACUTE COR PULMONALE Status : Acute (7) Headache Code(s): R51 - HEADACHE Status: Acute (8) DIANE (acute kidney injury) Code(s): N17.9 - ACUTE KIDNEY FAILURE, UNSPECIFIED Status: Acute - Plan old records reviewed/req, plan discussed w/ family, PT/OT, DVT proph w/SCDs, GI proph IVC filter tomorrow Appreciate input from CV surgery, cardiology and pulmonology. Awaiting EP consult. AM labs.
[2019-02-06] MEDS: Fioricet 325/50/40 mg Tablet PO PRN (18:08)
[2019-02-06] MEDS: Atorvastatin Calcium 20 MG TAB PO SCH (21:36)
[2019-02-06] MEDS: PATIENT'S HOME MEDICATION PO SCH (21:37)
[2019-02-06] MEDS: Topiramate 25 MG TAB PO SCH (21:37)
[2019-02-07 03:55] LABS: #Basophils 0.1 thou/uL (0.0-0.2); #Eosinphils 0.3 thou/uL (0.0-0.7); #Lymphocytes 1.4 thou/uL (1.20-3.40); #Monocytes 0.9 thou/uL (0.11-0.59); #Neutrophils 5.2 thou/uL (1.40-6.50); %Eosinophils 3.6 % (0.0-10.0); %Lymphocytes 17.4 % (21.0-51.0); %Monocytes 11.5 % (0.0-10.0); %Neutrophils 66.5 % (42.0-75.0); Hemoglobin 13.7 g/dL (14.0-18.0); Mean Corpuscular HGB CONC 32.9 g/dL (32.0-36.0); Mean Corpuscular Hemoglobin 31.8 pg (27.0-31.0); Mean Corpuscular Volume 96.5 fL (78.0-98.0); Mean Platelet Volume 7.5 fL (7.4-10.4); Platelet Count 214 thou/uL (130-400); RBC Distribution Width 14.5 % (11.5-14.5); Red Blood Cell (RBC) Count 4.32 mill/uL (4.70-6.10); White Blood Cell (WBC) Count 7.9 thou/uL (4.8-10.8)
[2019-02-07 04:17] LABS: Anion Gap 13 mmol/L (10-20); BUN (Urea Nitrogen) 28 mg/dL (8.4-25.7); Calc. Creatinine Clearance 60 mL/min (70-130); Calcium 8.6 mg/dL (7.8-10.44); Carbon Dioxide 23 mmol/L (23-31); Chloride 106 mmol/L (98-107); Estimated GFR-MDRD 55; Glucose 96 mg/dL (83-110); Potassium 4.1 mmol/L (3.5-5.1); Sodium 138 mmol/L (136-145)
[2019-02-07] MEDS: Levothyroxine Sodium 100 MCG TAB PO SCH (05:32)
[2019-02-07] MEDS: Metoprolol Tartrate 50 MG TAB PO SCH ×2 (05:32→20:58)
--- NOTE | 2019-02-07 11:12 | PDOC.HOSPP ---
- Subjective Encounter Date: 02/07/19 Encounter Time: 11:11 Subjective: Patient seen and examined. No new complaints. No overnight events. mild leg swelling. No sob or cp. No fever or chills. - Objective Vital Signs & Weight: Vital Signs (12 hours) Temp Pulse Resp BP Pulse Ox 02/07/19 08:00 97.6 F 62 18 132/85 97 02/07/19 04:00 97.9 F 60 20 153/91 H 93 L Weight Weight 201 lb 9.6 oz I&O: 02/06/19 02/07/19 02/08/19 07:59 06:59 06:59 Intake Total Output Total Balance Result Diagrams: 02/07/19 01:24 [employer] 02/07/19 01:24 [employer]EWELRY [employer] WORK[employer] Hospitalist ROS - Medication Medications: Active Medications Generic Name Dose Route Start Last Admin Trade Name Freq PRN Reason Stop Dose Admin Acetaminophen/Butalbital/Caffeine 1 tab 02/05/19 15:30 02/06/19 18:08 Fioricet PO 02/10/19 15:31 1 tab Q4H PRN Administration Headache Aspirin 81 mg 02/03/19 09:00 02/06/19 09:02 Ecotrin PO 81 mg DAILY JAVON Administration Atorvastatin Calcium 10 mg 02/03/19 21:00 02/06/19 21:36 Lipitor PO 10 mg HS JAVON Administration Cholecalciferol 1,000 units 02/03/19 09:00 02/06/19 09:00 Vitamin D3 PO 1,000 units DAILY JAVON Administration Cyanocobalamin 1,000 mcg 02/03/19 09:00 02/06/19 21:36 Vitamin B-12 PO 1,000 mcg BID JAVON Administration Fluoxetine HCl 30 mg 02/03/19 09:00 02/06/19 21:36 Prozac PO 30 mg BID JAVON Administration Folic Acid 1 mg 02/03/19 09:00 02/06/19 09:00 Folvite PO 1 mg DAILY JAVON Administration Levothyroxine Sodium 100 mcg 02/03/19 06:00 02/07/19 05:32 Synthroid PO 100 mcg 0600 JAVON Administration Lorazepam 1 mg 02/02/19 21:05 02/06/19 23:43 Ativan PO 1 mg Q2H PRN Administration Alcohol Withdrawal Metoprolol Tartrate 50 mg 02/03/19 21:00 02/07/19 05:32 Lopressor PO 50 mg BID JAVON Administration Pantoprazole Sodium 40 mg 02/03/19 09:00 02/06/19 09:01 Protonix PO 40 mg DAILY JAVON Administration Patient Own Medication 500 each 02/03/19 21:00 02/06/19 21:37 Patient's Home Medication PO Not Given HS JAVON Polyethylene Glycol 17 gm 02/06/19 09:00 02/06/19 09:02 Miralax PO Not Given DAILY JAVON Saccharomyces Boulardii 250 mg 02/03/19 09:00 02/06/19 09:00 Florastor PO 250 mg DAILY JAVON Administration Senna/Docusate Sodium 2 tab 02/03/19 09:00 02/06/19 21:37 Senokot S PO 2 tab BID JAVON Administration Thiamine HCl 250 mg 02/03/19 09:00 02/06/19 21:37 Thiamine PO 250 mg BID JAVON Administration Topiramate 25 mg 02/06/19 21:00 02/06/19 21:37 Topamax PO 25 mg BID JAVON Administration - Exam General Appearance: NAD Eye: anicteric sclera ENT: normocephalic atraumatic Neck: supple Heart: irregular Respiratory: CTAB Gastrointestinal: soft Skin: normal turgor Neurological: no weakness Psychiatric: normal affect Hosp A/P (1) Syncope Code(s): R55 - SYNCOPE AND COLLAPSE Status: Acute (2) Hypothyroidism Code(s): E03.9 - HYPOTHYROIDISM, UNSPECIFIED Status: Acute (3) Chronic a-fib Code(s): I48.2 - CHRONIC ATRIAL FIBRILLATION * DO NOT USE * Status: Chronic (4) HTN (hypertension) Code(s): I10 - ESSENTIAL (PRIMARY) HYPERTENSION Status: Chronic Qualifiers: Hypertension type: essential hypertension Qualified Code(s): I10 - Essential (primary) hypertension (5) Atrial tachycardia Code(s): I47.1 - SUPRAVENTRICULAR TACHYCARDIA Status: Acute (6) Pulmonary embolism Code(s): I26.99 - OTHER PULMONARY EMBOLISM WITHOUT ACUTE COR PULMONALE Status : Acute (7) Headache Code(s): R51 - HEADACHE Status: Acute (8) DIANE (acute kidney injury) Code(s): N17.9 - ACUTE KIDNEY FAILURE, UNSPECIFIED Status: Acute - Plan old records reviewed/req s/p IVC filter. will add home dose of lasix for worsening edema. Appreciate input from CV surgery, cardiology and pulmonology. Awaiting EP consult. AM labs.
[2019-02-07] MEDS ORDERED: Furosemide 40 MG TAB PO SCH (11:30)
[2019-02-07] MEDS: Aspirin 81 mg Enteric Coated Tablet PO SCH (11:37)
[2019-02-07] MEDS: Saccharomyces boulardii 250 MG CAP PO SCH (11:37)
[2019-02-07] MEDS: Senokot S 8.6-50 MG TAB PO SCH ×2 (11:37→20:56)
[2019-02-07] MEDS: Folic Acid 1 MG TAB PO SCH (11:38)
[2019-02-07] MEDS: FLUoxetine HCl 10 MG CAP PO SCH ×2 (11:38→20:57)
[2019-02-07] MEDS: Enoxaparin Sodium 30 MG/0.3 ML SYRINGE SC SCH ×2 (11:38→20:58)
[2019-02-07] MEDS: Cyanocobalamin (Vitamin B-12) 1,000 MCG TAB PO SCH ×2 (11:38→20:57)
[2019-02-07] MEDS: Polyethylene Glycol 3350 17 GM Packet PO SCH (11:39)
[2019-02-07] MEDS: Thiamine 100 MG TAB PO SCH ×2 (12:08→20:55)
[2019-02-07] MEDS: Topiramate 25 MG TAB PO SCH ×2 (12:08→20:57)
--- NOTE | 2019-02-07 12:44 | PRG ---
DATE OF SERVICE: 02/07/2019 SUBJECTIVE: He had an IVC filter placed yesterday. He actually has no memory of having that done. OBJECTIVE: VITAL SIGNS: Temperature 97.6, pulse 60, respirations 18, O2 saturation 97% on room air, blood pressure 132/85. HEENT: Unremarkable. NECK: No adenopathy or JVD. LUNGS: Clear. CARDIAC: S1 and S2. Regular. ABDOMEN: Soft. EXTREMITIES: He has a bandage over his right groin. LABORATORY DATA: White blood cell count 7.9, hematocrit 41.7, and platelet count 214. Sodium 138, potassium 4.1, chloride 106, CO2 of 23, BUN 28, creatinine 1.3, glucose 96. ASSESSMENT: 1. Pulmonary embolism. 2. Pulmonary infarction. 3. Status post inferior vena cava filter placement. PLAN: He is not an anticoagulation candidate. At some point in the future, he may need to have his chest re-scanned to keep an eye on the area that is presumed to be a pulmonary infarction. The patient has seen Dr. Santana in the past. I will notify the patient's admission. Job ID: [id number]
[2019-02-07] MEDS: Atorvastatin Calcium 20 MG TAB PO SCH (20:57)
[2019-02-07] MEDS: PATIENT'S HOME MEDICATION PO SCH (20:58)
[2019-02-08 05:10] LABS: Anion Gap 14 mmol/L (10-20); BUN (Urea Nitrogen) 30 mg/dL (8.4-25.7); Calc. Creatinine Clearance 51 mL/min (70-130); Calcium 8.8 mg/dL (7.8-10.44); Carbon Dioxide 24 mmol/L (23-31); Chloride 105 mmol/L (98-107); Estimated GFR-MDRD 46; Glucose 117 mg/dL (83-110); Sodium 139 mmol/L (136-145)
[2019-02-08] MEDS: Levothyroxine Sodium 100 MCG TAB PO SCH (05:17)
--- NOTE | 2019-02-08 07:48 | CON ---
DATE OF CONSULTATION: 02/05/2019 HISTORY OF PRESENT ILLNESS: I am seeing Mr. 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 His problems are: 1. Recurrent syncope. a. History of orthostatic hypotension. b. Subsequent frequent falls. 2. Persistent atrial fibrillation for at least a month duration. a. Remote history of ablation in [place] at least 3 years ago. 3. History of bradycardia prompting a dual-chamber pacemaker by Dr. Roy recurring with adequate function. 4. CHADS-VASc score of 4 with history of hypertension, age, PVD, now off Xarelto, hence frequent falls. 5. Newly found lung mass, pulmonary evaluation in progress, possibly suggestive of large peripheral eccentric thrombus in the right main pulmonary artery, finger- like extensions possible pulmonary infarct. 6. History of hypertension. 7. History of obstructive sleep apnea. 8. History of hypothyroidism. ALLERGIES: NONE NOTED. MEDICATIONS: At home included: 1. [place]. 2. Vitamin B12. 3. Vitamin D3. 4. Lipitor. 5. Levothyroxine. 6. Amitriptyline. 7. Thiamine. 8. Folic acid. 9. Cranberry supplements. 10. Furosemide. 11. Sennosides. 12. Omeprazole. 13. Saccharomyces. 14. Fluoxetine. 15. Potassium. 16. Polyethylene glycol. 17. Lisinopril. SUBJECTIVE: Mr. Mcdaniels is admitted after a fall, which he cannot recall the circumstances, likely passed out. He denies any seizure like symptoms. No stroke-like symptoms. No focal neurological deficits are noted. He has no PND or orthopnea. fluid overload. There is no diaphoresis. No nausea, vomiting, or diarrhea. Rest of 12-point review of system otherwise unremarkable , but significant for chronic falls, thought to be secondary to orthostatic hypotension. PAST MEDICAL HISTORY: As above, history of COPD, depression, and hypothyroidism. PAST SURGICAL HISTORY: Significant for pacemaker implant by Dr. Roy, bilateral hip replacement, plate and screw in the left heel as noted. FAMILY HISTORY: Significant for mother had cancer and father had committed suicide. SOCIAL HISTORY: The patient never smoked. Denies drug use. He lives with family. He does drink alcohol on occasion. He uses a walker. OBJECTIVE DATA: VITAL SIGNS: Blood pressure is 135/79, heart rate 68, respirations 20, and temperature 97.3 degrees Fahrenheit. GENERAL: Alert and oriented man, in no apparent distress. NECK: Supple. Jugular veins not distended. CHEST: Coarse without crackles. HEART: Sounds are regular to rate and rhythm. No murmur or gallop. ABDOMEN: Benign. Bowel sounds are positive. EXTREMITIES: Lower extremities without edema, clubbing, or cyanosis. Pulses are adequate. NEUROLOGIC: The patient is nonfocal. MUSCULOSKELETAL: Without joint swelling or deformity. SKIN: Without rash. DATABASE: EKG is reviewed revealing persistent atrial tachycardia with ventricular pacing. Interrogation of pacemaker reveals 100% ventricular pacing, adequate lead parameters, and persistent atrial fibrillation/flutter for last 28 days are seen. LABORATORY DATA: White cell count 7.5, hemoglobin 14.1, platelet count is 229. Sodium 140, potassium 4.3, BUN 25, creatinine 1.49. Troponin I 0.139, 0.198, and 0.[address] as detailed above from today. ASSESSMENT AND PLAN: Mr. Mcdaniels is a pleasant 83-year-old man with history of likely atrial arrhythmias, remote ablation of out of town with unclear details. He was admitted after a syncopal spell, which not seem to be associated with tachy or [place] arrhythmias based on his pacemaker interrogation. On the other hand, he has long history of orthostatic hypotension, which could be also part of the etiology. He has no neurological deficits. No stroke-like symptoms. No fever, chills, or cough also provoke these episodes. His chronic anticoagulation was stopped due to frequent falls, complicated issues of potential findings on a CT scan of pulmonary embolism. This likely will require resuming of anticoagulant. Nevertheless, long-term, he is at high risk for further risk with falls, especially while on anticoagulation. Therefore, possibly long-term, there may be a benefit from coming off anticoagulants. This will of course depend on his pulmonary workup and they recommended duration of anticoagulation for his pulmonary embolism. Should he be able to come off anticoagulants from the pulmonary standpoint. At that point, consideration for Watchman device implantation could be made, which long-term will make him not to be requiring anticoagulants, which is clearly will be of risk. Persistent atrial fibrillation, likely atypical flutter/atrial tachycardia. At this point with lack of anticoagulation, we would hold off on consideration of cardioversion. Pacemaker with adequate function. We will follow with you and also as outpatient if discharged. Thank you again for allowing me to participate in care of this patient. Job ID: [id number] MTDD
[2019-02-08] MEDS: Aspirin 81 mg Enteric Coated Tablet PO SCH ×2 (09:12→09:14)
[2019-02-08] MEDS: Furosemide 40 MG TAB PO SCH (09:13)
[2019-02-08] MEDS: FLUoxetine HCl 10 MG CAP PO SCH ×2 (09:13→20:07)
[2019-02-08] MEDS: Metoprolol Tartrate 50 MG TAB PO SCH ×2 (09:13→20:06)
[2019-02-08] MEDS: Saccharomyces boulardii 250 MG CAP PO SCH (09:13)
[2019-02-08] MEDS: Polyethylene Glycol 3350 17 GM Packet PO SCH (09:13)
[2019-02-08] MEDS: Thiamine 100 MG TAB PO SCH ×2 (09:14→20:06)
[2019-02-08] MEDS: Enoxaparin Sodium 30 MG/0.3 ML SYRINGE SC SCH ×2 (09:14→20:07)
[2019-02-08] MEDS: Folic Acid 1 MG TAB PO SCH (09:14)
[2019-02-08] MEDS: Cyanocobalamin (Vitamin B-12) 1,000 MCG TAB PO SCH ×2 (09:14→20:06)
[2019-02-08] MEDS: Senokot S 8.6-50 MG TAB PO SCH ×2 (09:15→20:06)
[2019-02-08] MEDS: Topiramate 25 MG TAB PO SCH ×2 (09:15→20:06)
--- NOTE | 2019-02-08 09:18 | OP ---
DATE OF PROCEDURE: 02/07/2019 PREOPERATIVE DIAGNOSIS: Pulmonary embolus. PROCEDURE PERFORMED: Insertion of inferior vena caval filter. ANESTHESIA: Local. CONTRAST: 5 mL. FLUORO: 0.7 minutes. DESCRIPTION OF PROCEDURE: After prepping and draping the right groin, ultrasound-guided puncture of right common femoral vein was carried out. The dilator and sheath were advanced and contrast angiography demonstrated the right lower renal vein and the left higher renal vein. The vena cava had no thrombus and diameter was suitable for TrapEase filter, which was then deployed. The patient tolerated the procedure well. Job ID: [id number]
--- NOTE | 2019-02-08 17:49 | PDOC.CPN ---
- Subjective Date: 02/08/19 Time: 17:48 Interval history: No new issues. Doing well. No chest pain. - Review of Systems General: denies: fever/chills, weight/appetite/sleep changes, night sweats, fatigue Respiratory: denies: cough, congestion, shortness of breath, exercise intolerance Cardiovascular: denies: chest pain, palpitation, edema, paroxysmal nocturnal dyspnea, orthopnea Gastrointestinal: denies: nausea, vomiting, diarrhea, constipation, abd pain, GI bleeding Musculoskeletal: denies: pain, tenderness, stiffness, swelling, arthritis/ arthralgias Neurological: denies: numbness, syncope, seizure, weakness - Objective Allergies/Adverse Reactions: Allergies Allergy/AdvReac Type Severity Reaction Status Date / Time No Known Allergies Allergy Unverified 02/02/19 19:49 Visit Medications: Current Medications Acetaminophen/Butalbital/Caffeine (Fioricet) 1 tab PO Q4H PRN PRN Reason: Headache Stop: 02/10/19 15:31 Last Admin: 02/06/19 18:08 Dose: 1 tab Hydrocodone Bitart/Acetaminophen ([place] 5/325) 1 tab PO Q4H PRN PRN Reason: Headache Aspirin (Ecotrin) 81 mg PO DAILY [facility] Last Admin: 02/08/19 09:14 Dose: 81 mg Atorvastatin Calcium (Lipitor) 10 mg PO HS [facility] Last Admin: 02/07/19 20:57 Dose: 10 mg Cholecalciferol (Vitamin D3) 1,000 units PO DAILY [facility] Last Admin: 02/08/19 09:13 Dose: 1,000 units Cyanocobalamin (Vitamin B-12) 1,000 mcg PO BID [facility] Last Admin: 02/08/19 09:14 Dose: 1,000 mcg Enoxaparin Sodium (Lovenox) 30 mg SC 0900,2100 [facility] Last Admin: 02/08/19 09:14 Dose: 30 mg Fluoxetine HCl (Prozac) 30 mg PO BID [facility] Last Admin: 02/08/19 09:13 Dose: 30 mg Folic Acid (Folvite) 1 mg PO DAILY [facility] Last Admin: 02/08/19 09:14 Dose: 1 mg Furosemide (Lasix) 40 mg PO DAILY-AC [facility] Last Admin: 02/08/19 09:13 Dose: 40 mg Levothyroxine Sodium (Synthroid) 100 mcg PO 0600 [facility] Last Admin: 02/08/19 05:17 Dose: 100 mcg Lorazepam (Ativan) 1 mg PO Q2H PRN PRN Reason: Alcohol Withdrawal Last Admin: 02/06/19 23:43 Dose: 1 mg Meclizine HCl (Antivert) 25 mg PO Q8H PRN PRN Reason: Dizziness Metoprolol Tartrate (Lopressor) 50 mg PO BID [facility] Last Admin: 02/08/19 09:13 Dose: 50 mg Pantoprazole Sodium (Protonix) 40 mg PO DAILY [facility] Last Admin: 02/08/19 09:14 Dose: 40 mg Patient Own Medication (Patient's Home Medication) 500 each PO HS [facility] Last Admin: 02/07/19 20:58 Dose: Not Given Polyethylene Glycol (Miralax) 17 gm PO DAILY [facility] Last Admin: 02/08/19 09:13 Dose: 17 gm Saccharomyces Boulardii (Florastor) 250 mg PO DAILY [facility] Last Admin: 02/08/19 09:13 Dose: 250 mg Senna/Docusate Sodium (Senokot S) 2 tab PO BID [facility] Last Admin: 02/08/19 09:15 Dose: 2 tab Thiamine HCl (Thiamine) 250 mg PO BID [facility] Last Admin: 02/08/19 09:14 Dose: 250 mg Topiramate (Topamax) 25 mg PO BID [facility] Last Admin: 02/08/19 09:15 Dose: 25 mg Vital Signs & Weight: Vital Signs Temp Pulse Pulse Resp BP BP BP 02/08/19 16:00 97.5 F L 62 28 H 02/08/19 12:00 96.6 F L 18 02/08/19 10:32 60 88/53 L 139/82 109/67 02/08/19 09:05 97 F L 18 02/08/19 08:00 BP Pulse Ox 02/08/19 16:00 96/63 98 02/08/19 12:00 129/80 96 02/08/19 10:32 02/08/19 09:05 132/79 98 02/08/19 08:00 98 Weight 201 lb 9.6 oz - Physical Exam General: alert & oriented x3 HEENT: mucus membranes moist Neck: supple neck Cardiac: regular rate and rhythm Lungs: clear to auscultation, no wheeze, rales, rhonchi Neuro: grossly intact Abdomen: active bowel sounds Extremities: 1+ LE edema Skin: clear Musculoskeletal: no pain - Labs Result Diagrams: 02/07/19 01:24 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
--- NOTE | 2019-02-08 17:52 | PDOC.CPN ---
- Subjective Date: 02/08/19 Time: 17:51 Interval history: No new issues. Doing well. No chest pain. - Review of Systems General: denies: fever/chills, weight/appetite/sleep changes, night sweats, fatigue Respiratory: denies: cough, congestion, shortness of breath, exercise intolerance Cardiovascular: denies: chest pain, palpitation, edema, paroxysmal nocturnal dyspnea, orthopnea Gastrointestinal: denies: nausea, vomiting, diarrhea, constipation, abd pain, GI bleeding Musculoskeletal: denies: pain, tenderness, stiffness, swelling, arthritis/ arthralgias Neurological: denies: numbness, syncope, seizure, weakness - Objective Allergies/Adverse Reactions: Allergies Allergy/AdvReac Type Severity Reaction Status Date / Time No Known Allergies Allergy Unverified 02/02/19 19:49 Visit Medications: Current Medications Acetaminophen/Butalbital/Caffeine (Fioricet) 1 tab PO Q4H PRN PRN Reason: Headache Stop: 02/10/19 15:31 Last Admin: 02/06/19 18:08 Dose: 1 tab Hydrocodone Bitart/Acetaminophen ([place] 5/325) 1 tab PO Q4H PRN PRN Reason: Headache Aspirin (Ecotrin) 81 mg PO DAILY [facility] Last Admin: 02/08/19 09:14 Dose: 81 mg Atorvastatin Calcium (Lipitor) 10 mg PO HS [facility] Last Admin: 02/07/19 20:57 Dose: 10 mg Cholecalciferol (Vitamin D3) 1,000 units PO DAILY [facility] Last Admin: 02/08/19 09:13 Dose: 1,000 units Cyanocobalamin (Vitamin B-12) 1,000 mcg PO BID [facility] Last Admin: 02/08/19 09:14 Dose: 1,000 mcg Enoxaparin Sodium (Lovenox) 30 mg SC 0900,2100 [facility] Last Admin: 02/08/19 09:14 Dose: 30 mg Fluoxetine HCl (Prozac) 30 mg PO BID [facility] Last Admin: 02/08/19 09:13 Dose: 30 mg Folic Acid (Folvite) 1 mg PO DAILY [facility] Last Admin: 02/08/19 09:14 Dose: 1 mg Furosemide (Lasix) 40 mg PO DAILY-AC [facility] Last Admin: 02/08/19 09:13 Dose: 40 mg Levothyroxine Sodium (Synthroid) 100 mcg PO 0600 [facility] Last Admin: 02/08/19 05:17 Dose: 100 mcg Lorazepam (Ativan) 1 mg PO Q2H PRN PRN Reason: Alcohol Withdrawal Last Admin: 02/06/19 23:43 Dose: 1 mg Meclizine HCl (Antivert) 25 mg PO Q8H PRN PRN Reason: Dizziness Metoprolol Tartrate (Lopressor) 50 mg PO BID [facility] Last Admin: 02/08/19 09:13 Dose: 50 mg Pantoprazole Sodium (Protonix) 40 mg PO DAILY [facility] Last Admin: 02/08/19 09:14 Dose: 40 mg Patient Own Medication (Patient's Home Medication) 500 each PO HS [facility] Last Admin: 02/07/19 20:58 Dose: Not Given Polyethylene Glycol (Miralax) 17 gm PO DAILY [facility] Last Admin: 02/08/19 09:13 Dose: 17 gm Saccharomyces Boulardii (Florastor) 250 mg PO DAILY [facility] Last Admin: 02/08/19 09:13 Dose: 250 mg Senna/Docusate Sodium (Senokot S) 2 tab PO BID [facility] Last Admin: 02/08/19 09:15 Dose: 2 tab Thiamine HCl (Thiamine) 250 mg PO BID [facility] Last Admin: 02/08/19 09:14 Dose: 250 mg Topiramate (Topamax) 25 mg PO BID [facility] Last Admin: 02/08/19 09:15 Dose: 25 mg Vital Signs & Weight: Vital Signs Temp Pulse Pulse Resp BP BP BP 02/08/19 16:00 97.5 F L 62 28 H 02/08/19 12:00 96.6 F L 18 02/08/19 10:32 60 88/53 L 139/82 109/67 02/08/19 09:05 97 F L 18 02/08/19 08:00 BP Pulse Ox 02/08/19 16:00 96/63 98 02/08/19 12:00 129/80 96 02/08/19 10:32 02/08/19 09:05 132/79 98 02/08/19 08:00 98 Weight 201 lb 9.6 oz - Physical Exam General: no apparent distress HEENT: mucus membranes moist Neck: supple neck Cardiac: regular rate and rhythm Lungs: clear to auscultation Neuro: grossly intact Abdomen: active bowel sounds Extremities: 1+ LE edema Skin: clear Musculoskeletal: no pain - Labs Result Diagrams: 02/07/19 01:[address] B[address] 02/08/19 04:33 Troponin/CKMB CK-MB (CK-2) 5.8 ng/mL (0-6.6) 02/05/19 19:35 Troponin I 0.145 ng/mL (< 0.028) H 02/05/19 22:11 - Telemetry Sinus rhythms and dysrhythmias: other (V-Paced, underlying afib) - Assessment/Plan Assessment/Plan: 1. Persistent Afib 2. Chronic diastolic CHF 3. LVH 4. PPM in situ 5. Pulmonary embolism/infarction 6. Frequent falls. 7. Syncope, likely orthostatic hypotension 8. S/P IVC filter. PLAN: - High risk for falls - EP will consider for watchman/Lariat. - No new recs.
[2019-02-08] MEDS: Atorvastatin Calcium 20 MG TAB PO SCH (20:06)
[2019-02-08] MEDS: PATIENT'S HOME MEDICATION PO SCH (20:07)
--- NOTE | 2019-02-08 21:04 | PDOC.HOSPP ---
- Subjective Encounter Date: 02/08/19 Encounter Time: 16:00 Subjective: Patient seen and examined for Syncope/PE. No CP/SOB. No new complaints. 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 dyspnea, edema, light headedness, other - Medication Medications: Active Medications Generic Name Dose Route Start Last Admin Trade Name Freq PRN Reason Stop Dose Admin Acetaminophen/Butalbital/Caffeine 1 tab 02/05/19 15:30 02/06/19 18:08 Fioricet PO 02/10/19 15:31 1 tab Q4H PRN Administration Headache Aspirin 81 mg 02/03/19 09:00 02/08/19 09:14 Ecotrin PO 81 mg DAILY [facility] Administration Atorvastatin Calcium 10 mg 02/03/19 21:00 02/08/19 20:06 Lipitor PO 10 mg HS [facility] Administration Cholecalciferol 1,000 units 02/03/19 09:00 02/08/19 09:13 Vitamin D3 PO 1,000 units DAILY [facility] Administration Cyanocobalamin 1,000 mcg 02/03/19 09:00 02/08/19 20:06 Vitamin B-12 PO 1,000 mcg BID [facility] Administration Enoxaparin Sodium 30 mg 02/07/19 09:00 02/08/19 20:07 Lovenox SC 30 mg 0900,2100 [facility] Administration Fluoxetine HCl 30 mg 02/03/19 09:00 02/08/19 20:07 Prozac PO 30 mg BID [facility] Administration Folic Acid 1 mg 02/03/19 09:00 02/08/19 09:14 Folvite PO 1 mg DAILY [facility] Administration Furosemide 40 mg 02/08/19 07:30 02/08/19 09:13 Lasix PO 40 mg DAILY-AC [facility] Administration Levothyroxine Sodium 100 mcg 02/03/19 06:00 02/08/19 05:17 Synthroid PO 100 mcg 0600 [facility] Administration Lorazepam 1 mg 02/02/19 21:05 02/06/19 23:43 Ativan PO 1 mg Q2H PRN Administration Alcohol Withdrawal Metoprolol Tartrate 50 mg 02/03/19 21:00 02/08/19 20:06 Lopressor PO 50 mg BID [facility] Administration Pantoprazole Sodium 40 mg 02/03/19 09:00 02/08/19 09:14 Protonix PO 40 mg DAILY [facility] Administration Patient Own Medication 500 each 02/03/19 21:00 02/08/19 20:07 Patient's Home Medication PO Not Given HS [facility] Polyethylene Glycol 17 gm 02/06/19 09:00 02/08/19 09:13 Miralax PO 17 gm DAILY [facility] Administration Saccharomyces Boulardii 250 mg 02/03/19 09:00 02/08/19 09:13 Florastor PO 250 mg DAILY [facility] Administration Senna/Docusate Sodium 2 tab 02/03/19 09:00 02/08/19 20:06 Senokot S PO 2 tab BID [facility] Administration Thiamine HCl 250 mg 02/03/19 09:00 02/08/19 20:06 Thiamine PO 250 mg BID [facility] Administration Topiramate 25 mg 02/06/19 21:00 02/08/19 20:06 Topamax PO 25 mg BID [facility] Administration - Exam General Appearance: NAD Neck: supple, no JVD Heart: RRR, no gallops Respiratory: CTAB, no wheezes, no rales Gastrointestinal: soft, non-tender, normal bowel sounds Extremities: 2+ LE edema Hosp A/P - Plan DVT proph w/lovenox Syncope PE/DVT with Pulmonary infarct s/p IVC filter Chr Afib HTN HLD Headache - improving PLAN: s/p IVC filter Await EP input Cont other meds
[2019-02-09 04:58] LABS: #Basophils 0.1 thou/uL (0.0-0.2); #Eosinphils 0.2 thou/uL (0.0-0.7); #Lymphocytes 1.1 thou/uL (1.20-3.40); #Monocytes 0.9 thou/uL (0.11-0.59); %Basophils 0.7 % (0.0-1.0); %Eosinophils 2.5 % (0.0-10.0); %Lymphocytes 12.2 % (21.0-51.0); %Monocytes 9.3 % (0.0-10.0); %Neutrophils 75.3 % (42.0-75.0); Hemoglobin 13.6 g/dL (14.0-18.0); Mean Corpuscular HGB CONC 31.5 g/dL (32.0-36.0); Mean Corpuscular Hemoglobin 30.5 pg (27.0-31.0); Mean Platelet Volume 7.9 fL (7.4-10.4); Platelet Count 230 thou/uL (130-400); RBC Distribution Width 14.2 % (11.5-14.5); Red Blood Cell (RBC) Count 4.45 mill/uL (4.70-6.10); White Blood Cell (WBC) Count 9.3 thou/uL (4.8-10.8)
[2019-02-09 05:28] LABS: ALT (SGPT) 32 U/L (8-55); AST (SGOT) 29 U/L (5-34); Albumin 3.7 g/dL (3.4-4.8); Alkaline Phosphatase 180 U/L (40-110); Anion Gap 16 mmol/L (10-20); BUN (Urea Nitrogen) 31 mg/dL (8.4-25.7); Bilirubin, Total 0.8 mg/dL (0.2-1.2); Calc. Creatinine Clearance 49 mL/min (70-130); Calcium 9.1 mg/dL (7.8-10.44); Carbon Dioxide 24 mmol/L (23-31); Chloride 104 mmol/L (98-107); Estimated GFR-MDRD 44; Globulin 2.2 g/dL (2.4-3.5); Glucose 96 mg/dL (83-110); Magnesium 2.4 mg/dL (1.6-2.6); Potassium 4.1 mmol/L (3.5-5.1); Protein, Total 5.9 g/dL (5.8-8.1); Sodium 140 mmol/L (136-145)
[2019-02-09] MEDS: Levothyroxine Sodium 100 MCG TAB PO SCH (05:53)
[2019-02-09] MEDS: Polyethylene Glycol 3350 17 GM Packet PO SCH (08:48)
[2019-02-09] MEDS: Enoxaparin Sodium 30 MG/0.3 ML SYRINGE SC SCH ×2 (08:48→20:22)
[2019-02-09] MEDS: Senokot S 8.6-50 MG TAB PO SCH ×2 (08:49→20:22)
[2019-02-09] MEDS: FLUoxetine HCl 10 MG CAP PO SCH ×2 (08:49→20:21)
[2019-02-09] MEDS: Saccharomyces boulardii 250 MG CAP PO SCH (08:50)
[2019-02-09] MEDS: Folic Acid 1 MG TAB PO SCH (08:50)
[2019-02-09] MEDS: Furosemide 40 MG TAB PO SCH (08:50)
[2019-02-09] MEDS: Cyanocobalamin (Vitamin B-12) 1,000 MCG TAB PO SCH ×2 (08:51→20:21)
[2019-02-09] MEDS: Metoprolol Tartrate 50 MG TAB PO SCH ×2 (08:51→20:21)
[2019-02-09] MEDS: Topiramate 25 MG TAB PO SCH ×2 (08:51→20:25)
[2019-02-09] MEDS: Thiamine 100 MG TAB PO SCH ×2 (08:51→20:21)
[2019-02-09] MEDS: HYDROcodone/Acetaminophen 5/325 mg Tablet PO PRN ×2 (08:54→20:25)
--- NOTE | 2019-02-09 08:57 | CT ---
PRELIMINARY REPORT/[facility]/EMERGENCY AFTER HOURS PROCEDURE: PROCEDURE INFORMATION: Exam: CT Head Without Contrast Exam date and time: 02/09/2019 5:34 AM Clinical history: 83 years old, male; Injury or trauma; Initial encounter; Abrasion; Not specified; P atient HX: Unwitnessed fall; Fall from standing. PT on blood thinners TECHNIQUE: Imaging protocol: Computed tomography of the head without contrast. COMPARISON: CT Brain WO Con 03/05/2018 4:39 AM FINDINGS: Brain: Right anterior temporal lobe volume loss and encephalomalacia. Diffuse mild cerebral age relat ed volume loss. Mild patchy low attenuation in the white matter compatible with mild chronic small ve ssel ischemic disease. No midline shift, mass, fluid collection, or evidence of hemorrhage. Ventricles: Ventricular enlargement proportional to volume loss. Bones/joints: Unremarkable. No acute fracture. Sinuses: Visualized sinuses are unremarkable. No fluid levels. Mastoid air cells: Visualized mastoid air cells are well aerated. Soft tissues: Unremarkable. IMPRESSION: Mild involutional changes, no acute intracranial abnormality. Thank you for allowing us to participate in the care of your patient. Dictated and Authenticated by: Everardo Ba MD 02/09/2019 5:44 AM Central Time ([place] & [place]) FINAL REPORT EMERGENCY AFTER HOURS CT OF BRAIN PERFORMED WITHOUT CONTRAST ENHANCEMENT: Date: 02/09/19 HISTORY: Unwitnessed fall. Patient is on blood thinners. COMPARISON: 02/02/19 study. FINDINGS: There is generalized ventricular and sulcal prominence. There are no signs of intracerebral hemorrhag e or extra-axial fluid collections. Mastoid air cells and visualized sinuses are clear. IMPRESSION: No acute intracranial abnormalities. This report is in agreement with the preliminary report issued by [facility]. POS: [facility]
--- NOTE | 2019-02-09 17:41 | PDOC.CPN ---
- Subjective Date: 02/09/19 Time: 17:37 Interval history: No new issues. - Review of Systems General: denies: fever/chills, weight/appetite/sleep changes, night sweats, fatigue Respiratory: denies: cough, congestion, shortness of breath, exercise intolerance Cardiovascular: denies: chest pain, palpitation, edema, paroxysmal nocturnal dyspnea, orthopnea Gastrointestinal: denies: nausea, vomiting, diarrhea, constipation, abd pain, GI bleeding Musculoskeletal: denies: pain, tenderness, stiffness, swelling, arthritis/ arthralgias Neurological: denies: numbness, syncope, seizure, weakness - Objective Allergies/Adverse Reactions: Allergies Allergy/AdvReac Type Severity Reaction Status Date / Time No Known Allergies Allergy Unverified 02/02/19 19:49 Visit Medications: Current Medications Acetaminophen/Butalbital/Caffeine (Fioricet) 1 tab PO Q4H PRN PRN Reason: Headache Stop: 02/10/19 15:31 Last Admin: 02/06/19 18:08 Dose: 1 tab Hydrocodone Bitart/Acetaminophen ([place] 5/325) 1 tab PO Q4H PRN PRN Reason: Headache Last Admin: 02/09/19 08:54 Dose: 1 tab Aspirin (Ecotrin) 81 mg PO DAILY [facility] Last Admin: 02/08/19 09:14 Dose: 81 mg Atorvastatin Calcium (Lipitor) 10 mg PO HS [facility] Last Admin: 02/08/19 20:06 Dose: 10 mg Cholecalciferol (Vitamin D3) 1,000 units PO DAILY [facility] Last Admin: 02/09/19 08:49 Dose: 1,000 units Cyanocobalamin (Vitamin B-12) 1,000 mcg PO BID [facility] Last Admin: 02/09/19 08:51 Dose: 1,000 mcg Enoxaparin Sodium (Lovenox) 30 mg SC 0900,2100 [facility] Last Admin: 02/09/19 08:48 Dose: 30 mg Fluoxetine HCl (Prozac) 30 mg PO BID [facility] Last Admin: 02/09/19 08:49 Dose: 30 mg Folic Acid (Folvite) 1 mg PO DAILY [facility] Last Admin: 02/09/19 08:50 Dose: 1 mg Furosemide (Lasix) 40 mg PO DAILY-AC [facility] Last Admin: 02/09/19 08:50 Dose: 40 mg Levothyroxine Sodium (Synthroid) 100 mcg PO 0600 [facility] Last Admin: 02/09/19 05:53 Dose: 100 mcg Lorazepam (Ativan) 1 mg PO Q2H PRN PRN Reason: Alcohol Withdrawal Last Admin: 02/06/19 23:43 Dose: 1 mg Meclizine HCl (Antivert) 25 mg PO Q8H PRN PRN Reason: Dizziness Metoprolol Tartrate (Lopressor) 50 mg PO BID [facility] Last Admin: 02/09/19 08:51 Dose: 50 mg Pantoprazole Sodium (Protonix) 40 mg PO DAILY [facility] Last Admin: 02/09/19 08:51 Dose: 40 mg Patient Own Medication (Patient's Home Medication) 500 each PO HS [facility] Last Admin: 02/08/19 20:07 Dose: Not Given Polyethylene Glycol (Miralax) 17 gm PO DAILY [facility] Last Admin: 02/09/19 08:48 Dose: Not Given Saccharomyces Boulardii (Florastor) 250 mg PO DAILY [facility] Last Admin: 02/09/19 08:50 Dose: 250 mg Senna/Docusate Sodium (Senokot S) 2 tab PO BID [facility] Last Admin: 02/09/19 08:49 Dose: 2 tab Thiamine HCl (Thiamine) 250 mg PO BID [facility] Last Admin: 02/09/19 08:51 Dose: 250 mg Topiramate (Topamax) 25 mg PO BID [facility] Last Admin: 02/09/19 08:51 Dose: 25 mg Vital Signs & Weight: Vital Signs Temp Pulse Pulse Pulse Resp BP BP 02/09/19 15:20 98.4 F 58 L 18 02/09/19 11:19 98 F 60 18 02/09/19 11:15 74 60 92/56 L 132/79 02/09/19 07:56 97.6 F 60 18 BP Pulse Ox Pulse Ox 02/09/19 15:20 119/71 95 02/09/19 11:19 132/79 96 02/09/19 11:15 92 L 02/09/19 07:56 143/82 H 95 Weight 201 lb 9.6 oz - Physical Exam General: no apparent distress HEENT: mucus membranes moist Neck: supple neck Cardiac: regular rate and rhythm, no murmur Lungs: clear to auscultation Neuro: grossly intact Abdomen: active bowel sounds Extremities: 2+ LE edema Skin: clear Musculoskeletal: no pain - Labs Result Diagrams: 02/09/19 04:29 02/09/19 04:29 Troponin/CKMB CK-MB (CK-2) 5.8 ng/mL (0-6.6) 02/05/19 19:35 Troponin I 0.145 ng/mL (< 0.028) H 02/05/19 22:11 - Telemetry Sinus rhythms and dysrhythmias: other (V paced, underlying Afib.) - Assessment/Plan Assessment/Plan: 1. Persistent Afib 2. Chronic diastolic CHF 3. LVH 4. PPM in situ 5. Pulmonary embolism/infarction 6. Frequent falls. 7. Syncope, likely orthostatic hypotension 8. S/P IVC filter. PLAN: - High risk for falls - EP will consider for watchman/Lariat. - No new recs. - Will sign off. Please call with any questions.
--- NOTE | 2019-02-09 19:02 | PDOC.HOSPP ---
- Subjective Encounter Date: 02/09/19 Encounter Time: 13:30 Subjective: Patient seen and examined for DVT/PE. SOB on exertion. No CP. No other complaints. Overnight events noted. - Objective Vital Signs & Weight: Vital Signs (12 hours) Temp Pulse Pulse Pulse Resp BP BP 02/09/19 15:20 98.4 F 58 L 18 02/09/19 11:19 98 F 60 18 02/09/19 11:15 74 60 92/56 L 132/79 02/09/19 07:56 97.6 F 60 18 BP Pulse Ox Pulse Ox 02/09/19 15:20 119/71 95 02/09/19 11:19 132/79 96 02/09/19 11:15 92 L 02/09/19 07:56 143/82 H 95 Weight Weight 201 lb 9.6 oz I&O: 02/08/19 02/09/19 02/10/19 06:59 06:59 06:59 Intake Total 480 1200 Output Total 350 350 Balance 130 850 Result Diagrams: 02/09/19 04:29 02/09/19 04:29 EKG Reviewed by me: Yes (Tele paced) Hospitalist ROS - Review of Systems Respiratory: denies: cough, dry, shortness of breath, hemoptysis, SOB with excertion, pleuritic pain, sputum, wheezing, other Cardiovascular: denies: chest pain, palpitations, orthopnea, paroxysmal noc. dyspnea, edema, light headedness, other - Medication Medications: Active Medications Generic Name Dose Route Start Last Admin Trade Name Freq PRN Reason Stop Dose Admin Acetaminophen/Butalbital/Caffeine 1 tab 02/05/19 15:30 02/06/19 18:08 Fioricet PO 02/10/19 15:31 1 tab Q4H PRN Administration Headache Hydrocodone Bitart/Acetaminophen 1 tab 02/05/19 21:29 02/09/19 08:54 [place] 5/325 PO 1 tab Q4H PRN Administration Headache Aspirin 81 mg 02/03/19 09:00 02/08/19 09:14 Ecotrin PO 81 mg DAILY JAVON Administration Atorvastatin Calcium 10 mg 02/03/19 21:00 02/08/19 20:06 Lipitor PO 10 mg HS JAVON Administration Cholecalciferol 1,000 units 02/03/19 09:00 02/09/19 08:49 Vitamin D3 PO 1,000 units DAILY JAVON Administration Cyanocobalamin 1,000 mcg 02/03/19 09:00 02/09/19 08:51 Vitamin B-12 PO 1,000 mcg BID JAVON Administration Enoxaparin Sodium 30 mg 02/07/19 09:00 02/09/19 08:48 Lovenox SC 30 mg 0900,2100 JAVON Administration Fluoxetine HCl 30 mg 02/03/19 09:00 02/09/19 08:49 Prozac PO 30 mg BID JAVON Administration Folic Acid 1 mg 02/03/19 09:00 02/09/19 08:50 Folvite PO 1 mg DAILY JAVON Administration Furosemide 40 mg 02/08/19 07:30 02/09/19 08:50 Lasix PO 40 mg DAILY-AC JAVON Administration Levothyroxine Sodium 100 mcg 02/03/19 06:00 02/09/19 05:53 Synthroid PO 100 mcg 0600 JAVON Administration Metoprolol Tartrate 50 mg 02/03/19 21:00 02/09/19 08:51 Lopressor PO 50 mg BID JAVON Administration Pantoprazole Sodium 40 mg 02/03/19 09:00 02/09/19 08:51 Protonix PO 40 mg DAILY JAVON Administration Patient Own Medication 500 each 02/03/19 21:00 02/08/19 20:07 Patient's Home Medication PO Not Given HS [facility] Polyethylene Glycol 17 gm 02/06/19 09:00 02/09/19 08:48 Miralax PO Not Given DAILY JAVON Saccharomyces Boulardii 250 mg 02/03/19 09:00 02/09/19 08:50 Florastor PO 250 mg DAILY [facility] Administration Senna/Docusate Sodium 2 tab 02/03/19 09:00 02/09/19 08:49 Senokot S PO 2 tab BID [facility] Administration Thiamine HCl 250 mg 02/03/19 09:00 02/09/19 08:51 Thiamine PO 250 mg BID JAVON Administration Topiramate 25 mg 02/06/19 21:00 02/09/19 08:51 Topamax PO 25 mg BID JAVON Administration - Exam General Appearance: NAD Neck: supple, no JVD Heart: RRR, no gallops Respiratory: CTAB, rhonchi Gastrointestinal: soft, non-tender, normal bowel sounds Extremities: 2+ LE edema Hosp A/P - Plan DVT proph w/SCDs Syncope Acute hypoxic resp failure due to PE Large Rt Pleural effusion 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
--- NOTE | 2019-02-09 19:16 | PRG ---
DATE OF SERVICE: 02/09/2019 SUBJECTIVE: Mr. Mcdaniels denies shortness of breath. He says he is feeling better than when he came. OBJECTIVE: VITAL SIGNS: He is afebrile, heart rate is 58, respiratory rate is 18, oximetry is 95% on room air, and blood pressure 92/56. LUNGS: Clear. HEART: Regular rate and rhythm. ABDOMEN: Soft. DIAGNOSTIC STUDIES: He had a head CT done today. I cannot access the report, but I reviewed it earlier today, and I do not believe if there is any pathology. IMPRESSION: 1. Thromboembolic disease with probable pulmonary infarction, status post inferior vena cava filter. 2. Deconditioning. PLAN: Continue supportive care. Job ID: [id number]
[2019-02-09] MEDS: Atorvastatin Calcium 20 MG TAB PO SCH (20:21)
[2019-02-09] MEDS: PATIENT'S HOME MEDICATION PO SCH (20:22)
[2019-02-10 04:56] LABS: Anion Gap 16 mmol/L (10-20); BUN (Urea Nitrogen) 32 mg/dL (8.4-25.7); Calc. Creatinine Clearance 59 mL/min (70-130); Calcium 8.8 mg/dL (7.8-10.44); Carbon Dioxide 19 mmol/L (23-31); Chloride 108 mmol/L (98-107); Estimated GFR-MDRD 55; Glucose 110 mg/dL (83-110); Potassium 4.6 mmol/L (3.5-5.1); Sodium 138 mmol/L (136-145)
[2019-02-10] MEDS: Levothyroxine Sodium 100 MCG TAB PO SCH (05:59)
[2019-02-10] MEDS: FLUoxetine HCl 10 MG CAP PO SCH (08:29)
[2019-02-10] MEDS: Enoxaparin Sodium 30 MG/0.3 ML SYRINGE SC SCH (08:29)
[2019-02-10] MEDS: Metoprolol Tartrate 50 MG TAB PO SCH (08:30)
[2019-02-10] MEDS: Saccharomyces boulardii 250 MG CAP PO SCH (08:30)
[2019-02-10] MEDS: Senokot S 8.6-50 MG TAB PO SCH (08:30)
[2019-02-10] MEDS: Thiamine 100 MG TAB PO SCH (08:30)
[2019-02-10] MEDS: Cyanocobalamin (Vitamin B-12) 1,000 MCG TAB PO SCH (08:30)
[2019-02-10] MEDS: Aspirin 81 mg Enteric Coated Tablet PO SCH (08:30)
[2019-02-10] MEDS: Folic Acid 1 MG TAB PO SCH (08:30)
[2019-02-10] MEDS: Fioricet 325/50/40 mg Tablet PO PRN (08:31)
[2019-02-10] MEDS: Topiramate 25 MG TAB PO SCH (08:31)
[2019-02-10] MEDS: Polyethylene Glycol 3350 17 GM Packet PO SCH (08:33)
--- NOTE | 2019-02-10 13:58 | PDOC.CPN ---
- Subjective Date: 02/10/19 Time: 13:56 Interval history: EP PROGRESS NOTE: 02/10/19 Follow up for watchman consideration. DC to SNF pending. patient without complaint or cardiac concern today. - Review of Systems General: reports: fatigue. denies: fever/chills, weight/appetite/sleep changes , night sweats Respiratory: denies: cough, congestion, shortness of breath, exercise intolerance Cardiovascular: denies: chest pain, palpitation, edema, paroxysmal nocturnal dyspnea, orthopnea Gastrointestinal: denies: nausea, vomiting, diarrhea, constipation, abd pain, GI bleeding Musculoskeletal: denies: pain, tenderness, stiffness, swelling, arthritis/ arthralgias Neurological: reports: weakness. denies: numbness, syncope, seizure - Objective Allergies/Adverse Reactions: Allergies Allergy/AdvReac Type Severity Reaction Status Date / Time No Known Allergies Allergy Unverified 02/02/19 19:49 Visit Medications: Current Medications Acetaminophen/Butalbital/Caffeine (Fioricet) 1 tab PO Q4H PRN PRN Reason: Headache Stop: 02/10/19 15:31 Last Admin: 02/10/19 08:31 Dose: 1 tab Hydrocodone Bitart/Acetaminophen ([place] 5/325) 1 tab PO Q4H PRN PRN Reason: Headache Last Admin: 02/09/19 20:25 Dose: 1 tab Aspirin (Ecotrin) 81 mg PO DAILY [facility] Last Admin: 02/10/19 08:30 Dose: 81 mg Atorvastatin Calcium (Lipitor) 10 mg PO HS [facility] Last Admin: 02/09/19 20:21 Dose: 10 mg Cholecalciferol (Vitamin D3) 1,000 units PO DAILY [facility] Last Admin: 02/10/19 08:31 Dose: 1,000 units Cyanocobalamin (Vitamin B-12) 1,000 mcg PO BID [facility] Last Admin: 02/10/19 08:30 Dose: 1,000 mcg Enoxaparin Sodium (Lovenox) 30 mg SC 0900,2100 [facility] Last Admin: 02/10/19 08:29 Dose: 30 mg Fluoxetine HCl (Prozac) 30 mg PO BID [facility] Last Admin: 02/10/19 08:29 Dose: 30 mg Folic Acid (Folvite) 1 mg PO DAILY [facility] Last Admin: 02/10/19 08:30 Dose: 1 mg Furosemide (Lasix) 40 mg PO DAILY-AC [facility] Last Admin: 02/09/19 08:50 Dose: 40 mg Levothyroxine Sodium (Synthroid) 100 mcg PO 0600 [facility] Last Admin: 02/10/19 05:59 Dose: 100 mcg Meclizine HCl (Antivert) 25 mg PO Q8H PRN PRN Reason: Dizziness Metoprolol Tartrate (Lopressor) 50 mg PO BID [facility] Last Admin: 02/10/19 08:30 Dose: 50 mg Pantoprazole Sodium (Protonix) 40 mg PO DAILY [facility] Last Admin: 02/10/19 08:30 Dose: 40 mg Patient Own Medication (Patient's Home Medication) 500 each PO HS [facility] Last Admin: 02/09/19 20:22 Dose: Not Given Polyethylene Glycol (Miralax) 17 gm PO DAILY [facility] Last Admin: 02/10/19 08:33 Dose: Not Given Saccharomyces Boulardii (Florastor) 250 mg PO DAILY [facility] Last Admin: 02/10/19 08:30 Dose: 250 mg Senna/Docusate Sodium (Senokot S) 2 tab PO BID [facility] Last Admin: 02/10/19 08:30 Dose: 2 tab Thiamine HCl (Thiamine) 250 mg PO BID [facility] Last Admin: 02/10/19 08:30 Dose: 250 mg Topiramate (Topamax) 25 mg PO BID [facility] Last Admin: 02/10/19 08:31 Dose: 25 mg Vital Signs & Weight: Vital Signs Temp Pulse Pulse Pulse Resp BP BP 02/10/19 11:35 97.3 F L 60 18 02/10/19 08:51 67 61 106/69 146/89 H 02/10/19 07:05 97.4 F L 60 18 02/10/19 03:53 97.6 F 60 16 BP Pulse Ox Pulse Ox Pulse Ox 02/10/19 11:35 135/79 99 02/10/19 08:51 94 L 99 02/10/19 07:05 151/91 H 96 02/10/19 03:53 140/81 98 Weight 201 lb 9.6 oz - Physical Exam General: alert & oriented x3, appears well, no apparent distress HEENT: mucus membranes moist, normocephaly Neck: supple neck, midline trachea, no JVD/HJR, no masses, no bruit, no lymphadenopathy, no thromegaly Cardiac: regular rate and rhythm, no murmur, regular rate, regular rhythm Lungs: clear to auscultation, normal breath sounds, normal exam, no wheeze, rales, rhonchi Neuro: cranial nerve 2-12 intact, grossly intact, no lateralizing findings Abdomen: unremarkable, active bowel sounds, soft, non-tender - Labs Result Diagrams: 02/09/19 04:29 02/10/19 04:27 Troponin/CKMB CK-MB (CK-2) 5.8 ng/mL (0-6.6) 02/05/19 19:35 Troponin I 0.145 ng/mL (< 0.028) H 02/05/19 22:11 - Telemetry Sinus rhythms and dysrhythmias: sinus rhythm Supraventricular conduction: atrial fibrillation (V paced) - Assessment/Plan Assessment/Plan: 1. Atrial arrhythmias - rate controlled 2. Pacemaker -adequate function 3. Frequent falls 4. Pulmonary embolism - IVC filter placed 5. CHADS2-VASC: 4 (age, HTN, vascular disease) -halfway OAC contraindicated with frequent falls and history of SDH. Xarelto stopped due to falls. -good candidate for watchman to close left atrial appendage. cannot proceed with WM until IVC filter is removed. He will require Eliquis 2.5mg PO BID for at least 6 weeks post WM implant. Can discuss as OP after IVC filter is removed. Will schedule follow up in 6-8 weeks. OK to DC
--- NOTE | 2019-02-10 14:57 | PRG ---
DATE OF SERVICE: 02/10/2019 SUBJECTIVE: Claudio Mcdaniels is clinically stable. He has no new complaints. OBJECTIVE: VITAL SIGNS: He is afebrile. Heart rates in the 60s, respiratory rate 17, oximetry is 99% on 1 L, and blood pressure 106/69. LUNGS: Clear. HEART: Regular rhythm. ABDOMEN: Soft. IMPRESSION: Status post inferior vena cava filter for thromboembolic disease. He is stable for discharge to a skilled unit in my opinion. Job ID: [id number]
[2019-02-10 16:19] VITALS: BP 135/81; TEMP 97.2
--- NOTE | 2019-02-11 09:56 | DIS ---
DATE OF ADMISSION: 02/03/2019 DATE OF DISCHARGE: 02/10/2019 DISCHARGE DISPOSITION: senior living facility at [facility]. FOLLOWUP: 1. Follow up with Cardiology, Dr. Jaquez and Electrophysiology, Dr. Graves in 2 weeks. 2. Follow up with Dr. Scott in 1 week. ALLERGIES: NO KNOWN DRUG ALLERGIES. THE PATIENT WAS SEEN AND EXAMINED ON THE DAY OF DISCHARGE. DENIES ANY NEW COMPLAINTS. NO CHEST PAIN, SHORTNESS OF BREATH, OR PALPITATIONS. DISCHARGE MEDICATIONS: 1. Lovenox 30 mg daily for DVT prophylaxis per Dr. Oliver. 2. Lasix 20 mg daily. 3. Lopressor 50 mg b.i.d. 4. Senokot S two tablets b.i.d. 5. Topamax 25 mg b.i.d. 6. Aspirin 81 mg daily. 7. MiraLAX as needed. 8. Omeprazole 40 mg daily. 9. Thiamine 250 mg b.i.d. 10. Levothyroxine 100 mcg daily. 11. Folic acid 0.8 mg daily. 12. Prozac 30 mg b.i.d. 13. Vitamin B12 of 1000 mcg b.i.d. 14. Vitamin D3 of 1000 units daily. 15. Lipitor 10 mg at bedtime. 16. [place] as needed. INPATIENT CONSULTANTS: 1. Pulmonary, Dr. Santana. 2. Cardiology, Dr. Anand Gomez. 3. Cardiovascular, Dr. Oliver. 4. Neurology, Dr. Morillo. LABORATORY DATA: WBC 7.6 with hemoglobin 13. D-dimer was 1.9. Creatinine at discharge is 1.26. Maximum creatinine on admission was 1.65. Troponin of 0.198. DIAGNOSTIC TESTS: Chest x-ray on admission was negative for infiltrate. It showed right pleural effusion. CT scan of the brain was negative for acute findings. Abdominal ultrasound was negative for evidence for gallstones. It also showed hepatomegaly. CT scan of the abdomen showed possible focal pulmonary infarction with hepatomegaly. Burst fracture of L4 that was seen on the prior study in April 2018. There was loculated pleural fluid collection. Bilateral lower extremity Doppler was negative for DVT. CT angiogram of the chest on [address] angiogram of the chest showed large peripheral eccentric thrombus in the right main pulmonary artery with finger-like extension into the lower right lobe and middle lobe pulmonary vasculature. MRI of the brain was negative for acute CVA. Echocardiogram showed left ventricular ejection fraction 55% to 60% with moderate mitral regurgitation, moderate aortic regurgitation, severe tricuspid regurgitation, and severe concentric left ventricular hypertrophy. BRIEF HOSPITAL COURSE: The patient is an 83-year-old male with hypertension, hyperlipidemia, and hypothyroidism, presented to the hospital after episode of syncope while he was walking to the bathroom. He does not remember what happened prior to falling. Please refer to the history and physical for further details. The patient was admitted to the telemetry unit with a diagnosis of syncope of unclear etiology. EKG showed paced rhythm. Echocardiogram was obtained as discussed above. His CT scan of the brain was negative for acute findings. Orthostatic vitals were negative. His further workup was consistent with pulmonary embolism with pulmonary infarct. Dopplers were negative for DVT. His medications have been optimized. Amitriptyline was discontinued. Due to his renal insufficiency, lisinopril was discontinued as well. He was also seen by Electrophysiology for atrial tachycardia. Consideration will be given for Watchman/Lariat device. He is stable for [facility]. He has been started on Lovenox 30 mg daily for DVT prophylaxis due to immobilization. FINAL DIAGNOSES: 1. Syncope suspected to be secondary to pulmonary embolism. 2. Pulmonary infarct secondary to #1. 3. Suspected deep venous thrombosis. Dopplers were, however, negative. 4. Chronic diastolic heart failure. 5. Hypertension with hypertensive heart disease. 6. Hyperlipidemia. 7. Acute kidney injury on chronic kidney disease, stage 2. 8. Headaches started on Topamax, amitriptyline discontinued. 9. History of recurrent falls. The patient is not an anticoagulation candidate. 10. Chronic atrial fibrillation. 11. History of alcoholism. 12. Hypothyroidism. 13. Suspected obstructive sleep apnea. PLAN: Plan of care was discussed with the patient in detail. He stated understanding. TIME SPENT WITH PATIENT: Total time coordinating the discharge of this patient was 38 minutes. Job ID: [id number]
== END 2019-02-10 17:08 | DRG 252 ==
LOC: ERS 13:43 → 2SW 17:20 → OBSVTOIN 02-03 23:31 → 2NO 02-05 19:22
PROVIDERS: ADMIT Internal Medicine; ATTEND Internal Medicine
PROC: 06H03DZ Insertion of Intraluminal Device into Inferior Vena Cava, Percutaneous Approach (ICD-10-PCS; principal; 2019-02-07)
DX: I95.1 Orthostatic hypotension (principal); I26.99 Other pulmonary embolism without acute cor pulmonale; J96.01 Acute respiratory failure with hypoxia; I48.19 Other persistent atrial fibrillation; N17.9 Acute kidney failure, unspecified; J90 Pleural effusion, not elsewhere classified; I13.0 Hypertensive heart and chronic kidney disease with heart failure and stage 1 through stage 4 chronic kidney disease, or unspecified chronic kidney disease; I50.32 Chronic diastolic (congestive) heart failure; E03.9 Hypothyroidism, unspecified; E78.5 Hyperlipidemia, unspecified; F32.9 Major depressive disorder, single episode, unspecified; Z96.643 Presence of artificial hip joint, bilateral; D63.1 Anemia in chronic kidney disease; F10.20 Alcohol dependence, uncomplicated; K21.9 Gastro-esophageal reflux disease without esophagitis; R29.6 Repeated falls; E78.00 Pure hypercholesterolemia, unspecified; M19.90 Unspecified osteoarthritis, unspecified site; G47.33 Obstructive sleep apnea (adult) (pediatric); N18.2 Chronic kidney disease, stage 2 (mild); J44.9 Chronic obstructive pulmonary disease, unspecified; Z95.0 Presence of cardiac pacemaker; Z88.0 Allergy status to penicillin; Z88.8 Allergy status to other drugs, medicaments and biological substances; Z79.01 Long term (current) use of anticoagulants
CPT/HCPCS: 36415; 37191; 70450; 70551; 71045; 71275; 74160; 76705; 76942; 80048; 80053; 80306; 80307; 81003; 82550; 82553; 83735; 83880; 84484; 85007; 85025; 85027; 85379; 93005; 93306; 93970; 94760; C1769; C1880; J1650; J2185; J3490

== ENCOUNTER 2019-03-10 19:11 | Inpatient (IN) | payer MEDICARE ==
[2019-03-10 21:07] LABS: #Basophils 0.1 thou/uL (0.0-0.2); #Eosinphils 0.2 thou/uL (0.0-0.7); #Lymphocytes 0.7 thou/uL (1.20-3.40); #Monocytes 0.6 thou/uL (0.11-0.59); #Neutrophils 7.8 thou/uL (1.40-6.50); %Basophils 0.6 % (0.0-1.0); %Eosinophils 2.5 % (0.0-10.0); %Lymphocytes 7.9 % (21.0-51.0); %Monocytes 6.6 % (0.0-10.0); %Neutrophils 82.5 % (42.0-75.0); Hemoglobin 14.8 g/dL (14.0-18.0); Mean Corpuscular HGB CONC 32.4 g/dL (32.0-36.0); Mean Corpuscular Hemoglobin 30.4 pg (27.0-31.0); Mean Corpuscular Volume 93.9 fL (78.0-98.0); Mean Platelet Volume 7.8 fL (7.4-10.4); Platelet Count 187 thou/uL (130-400); RBC Distribution Width 14.7 % (11.5-14.5); Red Blood Cell (RBC) Count 4.87 mill/uL (4.70-6.10); White Blood Cell (WBC) Count 9.4 thou/uL (4.8-10.8)
--- NOTE | 2019-03-10 21:20 | RAD ---
Exam: Chest one view HISTORY:Shortness of breath Comparison: 02/02/2019 FINDINGS: Pacemaker: Stable left-sided transvenous pacemaker Cardiac silhouette:Marked cardiomegaly. Aorta: Atherosclerosis of the aortic knob Pulmonary vessels: Slightly prominent Costophrenic angles: Redemonstration of bilateral pleural effusions with adjacent parenchymal changes . The overall degree of bibasilar opacification has slightly progressed in the right lung base. LUNGS: Stable opacification of the right lung apex. Stable hyperinflation. Stable granulomatous lesio ns. Pneumothorax: None Osseous abnormalities: None IMPRESSION: 1. Cardiomegaly. 2. Worsening opacification of the right lung base. 3. Stable granulomatous disease and stable opacification of the right lung apex. Transcribed Date/Time: 03/10/2019 9:28 PM
[2019-03-10 21:35] LABS: ALT (SGPT) 21 U/L (8-55); AST (SGOT) 25 U/L (5-34); Albumin 3.7 g/dL (3.4-4.8); Alkaline Phosphatase 211 U/L (40-110); Anion Gap 14 mmol/L (10-20); BUN (Urea Nitrogen) 20 mg/dL (8.4-25.7); Calc. Creatinine Clearance 0 mL/min (70-130); Calcium 8.6 mg/dL (7.8-10.44); Carbon Dioxide 26 mmol/L (23-31); Chloride 104 mmol/L (98-107); Estimated GFR-MDRD 55; Globulin 2.2 g/dL (2.4-3.5); Glucose 149 mg/dL (83-110); Protein, Total 5.9 g/dL (5.8-8.1); Sodium 141 mmol/L (136-145)
[2019-03-10 21:52] LABS: CKMB 5.7 ng/mL (0-6.6)
[2019-03-11] MEDS ORDERED: Nitroglycerin 0.4 MG TAB 1 EACH ONE (00:05)
[2019-03-11] MEDS ORDERED: Potassium Chloride 20 MEQ TAB ONE (00:05)
[2019-03-11] MEDS ORDERED: Aspirin Chewable 81 MG TAB ONE (00:05)
[2019-03-11] MEDS ORDERED: Morphine 4 MG/ML VIAL ONE (00:14)
[2019-03-11 01:16] LABS: Troponin I 0.153 ng/mL (< 0.028)
[2019-03-11 05:30] LABS: Troponin I 0.144 ng/mL (< 0.028)
[2019-03-11] MEDS ORDERED: HYDROcodone/Acetaminophen 5/325 mg Tablet PO PRN (06:38)
[2019-03-11] MEDS ORDERED: Cepastat Lozenges 1 LOZ PO PRN (07:56)
[2019-03-11] MEDS ORDERED: Calcium Carbonate 500 MG ChewTAB PO PRN (07:56)
[2019-03-11] MEDS ORDERED: Senokot S 8.6-50 MG TAB PO PRN (07:56)
[2019-03-11] MEDS ORDERED: hydrALAZINE 20 MG/ML VIAL SLOW IVP PRN (07:56)
[2019-03-11] MEDS ORDERED: Diabetic Tussin 200 MG/10 ML UDCUP PO PRN (07:56)
[2019-03-11] MEDS ORDERED: Bisacodyl 10 MG SUPP PR PRN (07:56)
[2019-03-11] MEDS ORDERED: Loratadine 10 MG TAB PO PRN (07:56)
[2019-03-11] MEDS ORDERED: Acetaminophen 325 MG TAB PO PRN (07:56)
[2019-03-11] MEDS ORDERED: Nitroglycerin 0.4 MG TAB (25 Tab Bottle) SL PRN (07:56)
[2019-03-11] MEDS ORDERED: Sodium Chloride 0.65% Nasal 44 ML BOT EA NARE PRN (07:56)
[2019-03-11] MEDS ORDERED: Zolpidem Tartrate 5 MG TAB PO PRN (07:56)
[2019-03-11] MEDS ORDERED: Loperamide HCl 2 MG CAP PO PRN (07:56)
[2019-03-11] MEDS: Enoxaparin Sodium 40 MG/0.4 ML SYRINGE SC SCH (08:56)
[2019-03-11] MEDS ORDERED: Metolazone 5 MG TAB PO SCH (09:00)
[2019-03-11] MEDS ORDERED: Famotidine 20 MG TAB PO SCH (09:00)
[2019-03-11] MEDS ORDERED: Polyethylene Glycol 3350 17 GM Packet PO PRN (10:58)
--- NOTE | 2019-03-11 11:56 | HP ---
PRIMARY CARE PHYSICIAN: Russell Scott MD REASON FOR ADMISSION: Bilateral lower extremity cellulitis and acute on chronic diastolic congestive heart failure exacerbation. HISTORY OF PRESENT ILLNESS: An 83-year-old male who lives at [facility] who is not a good historian, but he reports that he was having bilateral lower extremity pain, swelling, redness, and drainage of serosanguineous fluid for last several days and he was also having increasing shortness of breath after walking a few steps. In the emergency room, the patient had routine blood test, which showed elevated BNP and an indeterminate troponin as well as hypokalemia. His chest x-ray was consistent with increasing pleural effusion and congestion. His last echocardiography in January 2019 showed EF 55% to 60% with moderate aortic regurgitation and severe tricuspid regurgitation. The patient also has underlying severe LVH. After emergency room evaluation, the patient was treated with empiric antibiotic therapy with vancomycin. He was given morphine for pain, and he was given aspirin and nitroglycerin, and subsequently he was admitted to telemetry floor. PAST MEDICAL HISTORY: History of atrial fibrillation, required ablation x2, chronic anticoagulation, history of pulmonary embolism and IVC filter, hypertension, dyslipidemia, hypothyroidism, osteoarthritis, COPD, chronic respiratory failure with oxygen therapy. PAST SURGICAL HISTORY: Cardiac ablation x2, hernia repair, bilateral hip surgery, left heel surgery, IVC filter placement, pacemaker placement. PAST PSYCHIATRIC HISTORY: Anxiety and depression. SOCIAL HISTORY: The patient is from [facility]. No history of tobacco, alcohol, or illicit drug abuse. FAMILY HISTORY: No strong family history of premature coronary artery disease, stroke, or cancer. ALLERGIES: PENICILLIN. CURRENT HOME MEDICATION: 1. Levothyroxine 100 mcg daily. 2. Folic acid 0.8 mg daily. 3. Lasix 40 mg daily. 4. Thiamine 250 mg daily. 5. Amitriptyline 100 mg at bedtime. 6. DuoNeb twice daily. 7. Cran[place] 1 tablet daily. 8. Lipitor 10 mg daily. 9. Florastor 250 mg daily. 10. Omeprazole 40 mg daily. 11. MiraLAX 17 g p.o. daily. 12. Lisinopril 2.5 mg p.o. daily. EMERGENCY ROOM COURSE: The patient is given vancomycin, nitroglycerin, baby aspirin, and morphine. REVIEW OF SYSTEMS: CONSTITUTIONAL: Negative for weight loss or gain, ability to conduct usual activities. SKIN: Negative for rash, itching. EYES: Negative for double vision, pain. ENT/MOUTH: Negative for nose bleeding, neck stiffness, pain, tenderness. CARDIOVASCULAR: Negative for palpitations, dyspnea on exertion, orthopnea. RESPIRATORY: Negative for shortness of breath, wheezing, cough, hemoptysis, fever or night sweats. GASTROINTESTINAL: Negative for poor appetite, abdominal pain, heartburn, nausea, vomiting, constipation, or diarrhea. GENITOURINARY: Negative for urgency, frequency, dysuria, nocturia. MUSCULOSKELETAL: Negative for pain, swelling. NEUROLOGIC/PSYCHIATRIC: Negative for anxiety, depression. ALLERGY/IMMUNOLOGIC: Negative for skin rash, bleeding tendency. Please see my HPI for pertinent positives and negatives. All other review of systems reviewed and negative except as mentioned in the HPI. PHYSICAL EXAMINATION: VITAL SIGNS: Currently, blood pressure 143/81, pulse 61, respiratory rate 18, temperature 97.9, saturation 97% on room air, weight 95.7 kg. GENERAL: The patient is currently alert, awake, in no obvious acute distress. HEENT: Head, normocephalic and atraumatic. Eyes; pupils round, reactive to light. Extraocular muscle intact. ENT; oropharynx within normal limits. Moist mucous membranes. No oral lesion. No pharyngeal erythema. No exudate. NECK: Supple. No JVD. No meningeal signs of irritation. LUNGS: Air entry reduced at right lower part. A few rales noted. CARDIAC: S1 and S2 appears irregular with a systolic murmur noted parasternally and at the apex. No gallop. No rub. ABDOMEN: Soft. Bowel sounds present. Nontender. Nondistended. No organomegaly. No mass. No suprapubic tenderness. BACK: Unremarkable. No CVA tenderness. EXTREMITIES: Upper extremities, passive movement of all joints is normal. Lower extremity; bilateral lower extremity pitting edema noted with cellulitic changes noted on both lower extremity, predominantly on posterior aspect of both legs. NEUROLOGIC: Nonfocal examination. SIGNIFICANT LABORATORY DATA: CBC; WBC 9.4, hemoglobin 14.8, platelet 187 with left shift. BMP; sodium 141, potassium 3.0, chloride 104, carbon dioxide 26, BUN 20, creatinine 1.25, glucose 149, calcium 8.6, magnesium 2.3. LFT; AST 25, ALT 21, alkaline phosphatase 211, albumin 3.7. CRP 1.57. Troponin 0.153, which is chronically elevated. Blood culture is negative. Chest x-ray based on my review and reported as cardiomegaly, worsening opacification of right lung base, granulomatous changes. ASSESSMENT AND PLAN: 1. Acute on chronic diastolic congestive heart failure, NYHA stage II, ACC stage C, predominantly right-sided heart failure with recent history of pulmonary embolism and severe tricuspid regurgitation based on his right-sided heart failure. At this point, the patient has significant lower extremity edema and right pleural effusion. The patient will need Lasix 40 mg IV b.i.d. and Zaroxolyn 5 mg p.o. daily until he becomes euvolemic. We will monitor input-output chart. Fluid restriction 1200 mL per day. 2. History of pulmonary embolism. He is not a candidate for chronic anticoagulation therapy. He has IVC filter placed. 3. Atrial fibrillation. He is not a candidate for Watchman device procedure and chronic anticoagulation because of his fall risk. Based on previous consultation with sports commentator, the patient cannot have Watchman device given IVC filter. 4. Elevated troponin. Looking at his old record, the patient has chronically elevated troponin, likely due to underlying cardiomyopathy with right-sided heart failure. 5. Bilateral lower extremity cellulitis. The patient is on vancomycin therapy. The patient will need wound care. 6. Dyslipidemia. Continue Lipitor 10 mg p.o. at bedtime. 7. Anxiety and depression. Continue fluoxetine 30 mg p.o. twice daily. 8. Hypothyroidism. Continue Synthroid 100 mcg p.o. daily. 9. Hypertension. Continue Lopressor 50 mg p.o. b.i.d. 10. Gastroesophageal reflux disease. Continue Protonix 20 mg p.o. daily. 11. Deep venous thrombosis prophylaxis, Lovenox 40 mg subcu daily. Gastrointestinal prophylaxis, Protonix 20 mg p.o. daily. CODE STATUS: The patient will be full code. DISPOSITION PLAN: Based on clinical course. Plan of care discussed with the patient in detail. Job ID: [id number]
[2019-03-11] MEDS: Furosemide 20 MG/2 ML VIAL SLOW IVP SCH (13:44)
[2019-03-11] MEDS: HYDROcodone/Acetaminophen 5/325 mg Tablet PO PRN ×2 (13:55→23:02)
[2019-03-11] MEDS ORDERED: Furosemide 20 MG/2 ML VIAL SLOW IVP SCH (14:00)
[2019-03-11] MEDS: Potassium Chloride 20 MEQ TAB PO SCH (16:33)
[2019-03-11 17:04] LABS: Base Excess (BEa) -3.3 mEq/L (-2.0 to +3.0); CO2 Tension 31.4 mmHg (35.0-45.0); Calcium, Ionized 1.11 mmol/L (1.12-1.30); Carboxyhemoglobin (COHb) 1.3 gm% (0.0-3.0); Hemoglobin (Hb) 15.6 g/dL (14.0-18.0); O2 Tension (PaO2) 147.5 mmHg (> 60.0); Potassium - ABG Lab 3.27 mmol/L (3.70-5.30); pH, Arterial 7.42 (7.35-7.45)
[2019-03-11] MEDS ORDERED: Artificial Tears 18 DROP/0.9 ML EA EYE PRN (17:15)
[2019-03-11] MEDS: FLUoxetine HCl 10 MG CAP PO SCH (20:40)
[2019-03-11] MEDS: Thiamine 100 MG TAB PO SCH (20:40)
[2019-03-11] MEDS: Topiramate 25 MG TAB PO SCH (20:40)
[2019-03-11] MEDS: Atorvastatin Calcium 20 MG TAB PO SCH (20:41)
[2019-03-11] MEDS: Cyanocobalamin (Vitamin B-12) 1,000 MCG TAB PO SCH (20:41)
[2019-03-11] MEDS: Metoprolol Tartrate 50 MG TAB PO SCH (20:42)
[2019-03-12] MEDS: Vancomycin HCl 1.25 GM in Sodium Chloride 0.9% 250 ML 250 ML IVPB SCH (02:06)
[2019-03-12] MEDS: HYDROcodone/Acetaminophen 5/325 mg Tablet PO PRN ×3 (04:02→21:57)
[2019-03-12 06:12] LABS: Anion Gap 18 mmol/L (10-20); BUN (Urea Nitrogen) 20 mg/dL (8.4-25.7); Calc. Creatinine Clearance 63 mL/min (70-130); Calcium 8.9 mg/dL (7.8-10.44); Carbon Dioxide 22 mmol/L (23-31); Chloride 101 mmol/L (98-107); Estimated GFR-MDRD 59; Glucose 72 mg/dL (83-110); Potassium 3.4 mmol/L (3.5-5.1); Sodium 138 mmol/L (136-145)
[2019-03-12] MEDS: Furosemide 20 MG/2 ML VIAL SLOW IVP SCH (06:26)
[2019-03-12] MEDS: Levothyroxine Sodium 100 MCG TAB PO SCH (06:26)
[2019-03-12 06:39] LABS: Band 1 % (5-11); Eosinophils 2 % (0-10); Hemoglobin 14.2 g/dL (14.0-18.0); Lymphocytes 10 % (21-51); MDiff Complete? YES; Mean Corpuscular HGB CONC 30.9 g/dL (32.0-36.0); Mean Corpuscular Hemoglobin 29.5 pg (27.0-31.0); Mean Corpuscular Volume 95.6 fL (78.0-98.0); Monocytes 8 % (0-10); Neutrophil 79 % (42-75); Platelet Count 166 thou/uL (130-400); RBC Distribution Width 14.8 % (11.5-14.5); White Blood Cell (WBC) Count 8.2 thou/uL (4.8-10.8)
[2019-03-12] MEDS: FLUoxetine HCl 10 MG CAP PO SCH ×2 (09:50→22:04)
[2019-03-12] MEDS: Enoxaparin Sodium 40 MG/0.4 ML SYRINGE SC SCH (09:51)
[2019-03-12] MEDS: Topiramate 25 MG TAB PO SCH ×2 (09:51→22:04)
[2019-03-12] MEDS: Thiamine 100 MG TAB PO SCH ×2 (09:52→21:58)
[2019-03-12] MEDS: Metolazone 5 MG TAB PO SCH (09:52)
[2019-03-12] MEDS: Aspirin 81 mg Enteric Coated Tablet PO SCH (09:52)
[2019-03-12] MEDS: Saccharomyces boulardii 250 MG CAP PO SCH (09:52)
[2019-03-12] MEDS: Potassium Chloride 20 MEQ TAB PO SCH ×2 (09:54→18:22)
[2019-03-12] MEDS: Metoprolol Tartrate 50 MG TAB PO SCH ×2 (09:54→21:59)
[2019-03-12] MEDS: Cyanocobalamin (Vitamin B-12) 1,000 MCG TAB PO SCH ×2 (09:54→21:59)
[2019-03-12] MEDS: Folic Acid 1 MG TAB PO SCH (09:54)
--- NOTE | 2019-03-12 11:50 | PDOC.HOSPP ---
- Subjective Encounter Date: 03/12/19 Encounter Time: 08:00 Subjective: pt has lot of leg edema, no fever, weak, family bedside Patient seen and examined. No new complaints. No overnight events - Objective Vital Signs & Weight: Vital Signs (12 hours) Temp Pulse Resp BP Pulse Ox 03/12/19 11:26 98.6 F 62 15 139/82 03/12/19 07:00 97.4 F L 60 16 138/76 99 03/12/19 03:50 97.9 F 60 18 133/72 100 Weight Weight 196 lb 1.6 oz I&O: 03/11/19 03/12/19 03/13/19 06:59 06:59 06:59 Intake Total 1170 Output Total 1450 1050 Balance -280 -1050 Result Diagrams: 03/12/19 04:52 03/12/19 04:52 EKG Reviewed by me: Yes Hospitalist ROS - Review of Systems Constitutional: reports: weakness. denies: fever, chills, sweats, malaise, other ENT: denies: ear pain, ear discharge, nose pain, nose discharge, nose congestion , mouth pain, mouth swelling, throat pain, throat swelling, other Respiratory: denies: cough, dry, shortness of breath, hemoptysis, SOB with excertion, pleuritic pain, sputum, wheezing, other Cardiovascular: reports: edema. denies: chest pain, palpitations, orthopnea, paroxysmal noc. dyspnea, light headedness, other Gastrointestinal: denies: nausea, vomiting, abdominal pain, diarrhea, constipation, melena, hematochezia, other Genitourinary: denies: dysuria, frequency, incontinence, hematuria, retention, other Musculoskeletal: denies: neck pain, shoulder pain, arm pain, back pain, hand pain, leg pain, foot pain, other - Medication Medications: Active Medications Generic Name Dose Route Start Last Admin Trade Name Freq PRN Reason Stop Dose Admin Hydrocodone Bitart/Acetaminophen 1 tab 03/11/19 10:58 03/12/19 04:02 [place] 5/325 PO 1 tab Q4H PRN Administration Headache Aspirin 81 mg 03/12/19 09:00 03/12/19 09:52 Ecotrin PO 81 mg DAILY JAVON Administration Atorvastatin Calcium 10 mg 03/11/19 21:00 03/11/19 20:41 Lipitor PO 10 mg HS JAVON Administration Cholecalciferol 1,000 units 03/12/19 09:00 03/12/19 09:52 Vitamin D3 PO 1,000 units DAILY JAVON Administration Cyanocobalamin 1,000 mcg 03/11/19 21:00 03/12/19 09:54 Vitamin B-12 PO 1,000 mcg BID JAVON Administration Enoxaparin Sodium 40 mg 03/11/19 09:00 03/12/19 09:51 Lovenox SC 40 mg 0900 JAVON Administration Fluoxetine HCl 30 mg 03/11/19 21:00 03/12/19 09:50 Prozac PO 30 mg BID JAVON Administration Folic Acid 1 mg 03/12/19 09:00 03/12/19 09:54 Folvite PO 1 mg DAILY JAVON Administration Vancomycin HCl 1.25 gm/ Sodium 250 mls @ 166.667 mls/hr 03/12/19 01:00 02:06 Chloride IVPB 250 mls Q24HR JAVON Administration Levothyroxine Sodium 100 mcg 03/12/19 06:00 03/12/19 06:26 Synthroid PO 100 mcg 0600 JAVON Administration Metolazone 5 mg 03/12/19 08:30 03/12/19 09:52 Zaroxolyn PO 5 mg 0830 JAVON Administration Metoprolol Tartrate 50 mg 03/11/19 21:00 03/12/19 09:54 Lopressor PO 50 mg BID JAVON Administration Pantoprazole Sodium 20 mg 03/12/19 09:00 03/12/19 09:52 Protonix PO 20 mg DAILY JAVON Administration Potassium Chloride 20 meq 03/11/19 17:00 03/12/19 09:54 K-Dur PO 20 meq BID-WM JAVON Administration Saccharomyces Boulardii 250 mg 03/12/19 09:00 03/12/19 09:52 Florastor PO 250 mg DAILY JAVON Administration Sodium Chloride 10 ml 03/11/19 09:00 03/12/19 09:54 Flush - Normal Saline IVF 10 ml Q12HR JAVON Administration Thiamine HCl 200 mg 03/11/19 21:00 03/12/19 09:52 Thiamine PO 200 mg BID JAVON Administration Topiramate 50 mg 03/11/19 21:00 03/12/19 09:51 Topamax PO 50 mg BID JAVON Administration - Exam General Appearance: NAD, awake alert Eye: PERRL, anicteric sclera ENT: normocephalic atraumatic, no oropharyngeal lesions Neck: supple, symmetric, no thyromegaly Heart: RRR, no gallops, no rubs, murmur present Respiratory - other findings: air entry reduced at base, few rales + Gastrointestinal: soft, non-tender, non-distended, normal bowel sounds Extremities: 2+ LE edema Skin: normal turgor, no lesions Skin - other findings: cellulitis both leg noted Neurological: no focal deficits Musculoskeletal: normal tone, normal strength Psychiatric: normal affect, normal behavior Hosp A/P (1) 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 stage C congestive heart failure Code(s): I50.33 - ACUTE ON CHRONIC DIASTOLIC (CONGESTIVE) HEART FAILURE Status : Acute (2) Cellulitis of both lower extremities Code(s): L03.115 - CELLULITIS OF RIGHT LOWER LIMB; L03.116 - CELLULITIS OF LEFT LOWER LIMB Status: Acute (3) Hypothyroidism Code(s): E03.9 - HYPOTHYROIDISM, UNSPECIFIED Status: Chronic Qualifiers: Hypothyroidism type: unspecified Qualified Code(s): E03.9 - Hypothyroidism , unspecified (4) Chronic a-fib Code(s): I48.2 - CHRONIC ATRIAL FIBRILLATION * DO NOT USE * Status: Chronic (5) Chronic respiratory failure with hypoxia, on home O2 therapy Code(s): J96.11 - CHRONIC RESPIRATORY FAILURE WITH HYPOXIA; Z99.81 - DEPENDENCE ON SUPPLEMENTAL OXYGEN Status: Chronic (6) HLD (hyperlipidemia) Code(s): E78.5 - HYPERLIPIDEMIA, UNSPECIFIED Status: Chronic (7) HTN (hypertension) Code(s): I10 - ESSENTIAL (PRIMARY) HYPERTENSION Status: Chronic Qualifiers: Hypertension type: essential hypertension Qualified Code(s): I10 - Essential (primary) hypertension (8) ESTELA on CPAP Code(s): G47.33 - OBSTRUCTIVE SLEEP APNEA (ADULT) (PEDIATRIC); Z99.89 - DEPENDENCE ON OTHER ENABLING MACHINES AND DEVICES Status: Chronic (9) History of pulmonary embolism Code(s): Z86.711 - PERSONAL HISTORY OF PULMONARY EMBOLISM Status: Chronic (10) Presence of IVC filter Code(s): Z95.828 - PRESENCE OF OTHER VASCULAR IMPLANTS AND GRAFTS Status: Chronic (11) Hypokalemia Code(s): E87.6 - HYPOKALEMIA Status: Acute - Plan old records reviewed/req, plan discussed w/ family, continue antibiotics, DVT proph w/lovenox 03/12 continue lasix replace potassium continue vancomycin discussed with daughter bedside and updated plan monitor labs and fluid restriction
[2019-03-12 12:09] VITALS: BMI 26.6
[2019-03-12] MEDS: Furosemide 40 MG/4 ML VIAL SLOW IVP SCH (15:48)
[2019-03-12] MEDS: Atorvastatin Calcium 20 MG TAB PO SCH (22:05)
[2019-03-13] MEDS: Vancomycin HCl 1.25 GM in Sodium Chloride 0.9% 250 ML 250 ML IVPB SCH (00:41)
[2019-03-13 01:03] LABS: Vancomycin, Trough 11.3 ug/mL
[2019-03-13] MEDS: Levothyroxine Sodium 100 MCG TAB PO SCH (05:55)
[2019-03-13] MEDS: Furosemide 40 MG/4 ML VIAL SLOW IVP SCH ×2 (05:55→15:13)
--- NOTE | 2019-03-13 10:15 | PDOC.HOSPP ---
- Subjective Encounter Date: 03/13/19 Encounter Time: 08:00 Subjective: Patient seen and examined. No new complaints. No overnight events - Objective Vital Signs & Weight: Vital Signs (12 hours) Temp Pulse Resp BP Pulse Ox 03/13/19 07:45 97.3 F L 62 20 131/73 100 03/13/19 04:00 97.5 F L 62 20 149/79 H 100 03/13/19 00:17 97.6 F 60 16 127/73 100 Weight Admit Weight 199 lb Weight 190 lb I&O: 03/12/19 03/13/19 03/14/19 06:59 06:59 06:59 Intake Total 1650 1127 Output Total 3291 3347 350 Balance -689 -7976 -350 Result Diagrams: 03/12/19 04:52 03/12/19 04:52 EKG Reviewed by me: Yes Hospitalist ROS - Review of Systems Constitutional: reports: weakness. denies: fever, chills, sweats, malaise, other ENT: denies: ear pain, ear discharge, nose pain, nose discharge, nose congestion , mouth pain, mouth swelling, throat pain, throat swelling, other Respiratory: denies: cough, dry, shortness of breath, hemoptysis, SOB with excertion, pleuritic pain, sputum, wheezing, other Cardiovascular: reports: edema. denies: chest pain, palpitations, orthopnea, paroxysmal noc. dyspnea, light headedness, other Gastrointestinal: denies: nausea, vomiting, abdominal pain, diarrhea, constipation, melena, hematochezia, other Genitourinary: denies: dysuria, frequency, incontinence, hematuria, retention, other Musculoskeletal: denies: neck pain, shoulder pain, arm pain, back pain, hand pain, leg pain, foot pain, other - Medication Medications: Active Medications Generic Name Dose Route Start Last Admin Trade Name Freq PRN Reason Stop Dose Admin Acetaminophen 650 mg 03/11/19 07:56 03/12/19 21:56 Tylenol PO 650 mg Q4H PRN Administration Headache/Fever/Mild Pain (1-3) Hydrocodone Bitart/Acetaminophen 1 tab 03/11/19 10:58 03/12/19 21:57 [place] 5/325 PO 1 tab Q4H PRN Administration Headache Aspirin 81 mg 03/12/19 09:00 03/12/19 09:52 Ecotrin PO 81 mg DAILY JAVON Administration Atorvastatin Calcium 10 mg 03/11/19 21:00 03/12/19 22:05 Lipitor PO 10 mg HS JAVON Administration Cholecalciferol 1,000 units 03/12/19 09:00 03/12/19 09:52 Vitamin D3 PO 1,000 units DAILY JAVON Administration Cyanocobalamin 1,000 mcg 03/11/19 21:00 03/12/19 21:59 Vitamin B-12 PO 1,000 mcg BID JAVON Administration Enoxaparin Sodium 40 mg 03/11/19 09:00 03/12/19 09:51 Lovenox SC 40 mg 0900 JAVON Administration Fluoxetine HCl 30 mg 03/11/19 21:00 03/12/19 22:04 Prozac PO 30 mg BID JAVON Administration Folic Acid 1 mg 03/12/19 09:00 03/12/19 09:54 Folvite PO 1 mg DAILY JAVON Administration Furosemide 40 mg 03/12/19 14:00 03/13/19 05:55 Lasix SLOW IVP 40 mg 0600,1400 JAVON Administration Levothyroxine Sodium 100 mcg 03/12/19 06:00 03/13/19 05:55 Synthroid PO 100 mcg 0600 JAVON Administration Metolazone 5 mg 03/12/19 08:30 03/12/19 09:52 Zaroxolyn PO 5 mg 0830 JAVON Administration Metoprolol Tartrate 50 mg 03/11/19 21:00 03/12/19 21:59 Lopressor PO 50 mg BID JAVON Administration Pantoprazole Sodium 20 mg 03/12/19 09:00 03/12/19 09:52 Protonix PO 20 mg DAILY JAVON Administration Potassium Chloride 20 meq 03/11/19 17:00 03/12/19 18:22 K-Dur PO 20 meq BID-WM JAVON Administration Saccharomyces Boulardii 250 mg 03/12/19 09:00 03/12/19 09:52 Florastor PO 250 mg DAILY JAVON Administration Sodium Chloride 10 ml 03/11/19 09:00 03/12/19 22:06 Flush - Normal Saline IVF 10 ml Q12HR JAVON Administration Thiamine HCl 200 mg 03/11/19 21:00 03/12/19 21:58 Thiamine PO 200 mg BID JAVON Administration Topiramate 50 mg 03/11/19 21:00 03/12/19 22:04 Topamax PO 50 mg BID JAVON Administration - Exam General Appearance: NAD, awake alert Eye: PERRL, anicteric sclera ENT: normocephalic atraumatic, no oropharyngeal lesions Neck: supple, symmetric, no JVD Heart: RRR, no murmur, no gallops, no rubs Respiratory: CTAB, no ronchi Respiratory - other findings: air entry reduced at base Gastrointestinal: soft, non-tender, non-distended, normal bowel sounds Extremities: 2+ LE edema Extremities - other findings: cellultis both leg Skin: normal turgor Neurological: no focal deficits Musculoskeletal: normal tone, normal strength Psychiatric: normal affect, normal behavior Hosp A/P (1) 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 stage C congestive heart failure Code(s): I50.33 - ACUTE ON CHRONIC DIASTOLIC (CONGESTIVE) HEART FAILURE Status : Acute (2) Cellulitis of both lower extremities Code(s): L03.115 - CELLULITIS OF RIGHT LOWER LIMB; L03.116 - CELLULITIS OF LEFT LOWER LIMB Status: Acute (3) Hypothyroidism Code(s): E03.9 - HYPOTHYROIDISM, UNSPECIFIED Status: Chronic Qualifiers: Hypothyroidism type: unspecified Qualified Code(s): E03.9 - Hypothyroidism , unspecified (4) Chronic a-fib Code(s): I48.2 - CHRONIC ATRIAL FIBRILLATION * DO NOT USE * Status: Chronic (5) Chronic respiratory failure with hypoxia, on home O2 therapy Code(s): J96.11 - CHRONIC RESPIRATORY FAILURE WITH HYPOXIA; Z99.81 - DEPENDENCE ON SUPPLEMENTAL OXYGEN Status: Chronic (6) HLD (hyperlipidemia) Code(s): E78.5 - HYPERLIPIDEMIA, UNSPECIFIED Status: Chronic (7) HTN (hypertension) Code(s): I10 - ESSENTIAL (PRIMARY) HYPERTENSION Status: Chronic Qualifiers: Hypertension type: essential hypertension Qualified Code(s): I10 - Essential (primary) hypertension (8) ESTELA on CPAP Code(s): G47.33 - OBSTRUCTIVE SLEEP APNEA (ADULT) (PEDIATRIC); Z99.89 - DEPENDENCE ON OTHER ENABLING MACHINES AND DEVICES Status: Chronic (9) History of pulmonary embolism Code(s): Z86.711 - PERSONAL HISTORY OF PULMONARY EMBOLISM Status: Chronic (10) Presence of IVC filter Code(s): Z95.828 - PRESENCE OF OTHER VASCULAR IMPLANTS AND GRAFTS Status: Chronic (11) Hypokalemia Code(s): E87.6 - HYPOKALEMIA Status: Acute - Plan old records reviewed/req 03/12 continue lasix replace potassium continue vancomycin discussed with daughter bedside and updated plan monitor labs and fluid restriction 03/13/19 continue lasix and zaroxlyn will repeat labs tomorrow continue vancomycin for cellulitis medication reviewed and continue to provide supportive care
[2019-03-13] MEDS: FLUoxetine HCl 10 MG CAP PO SCH ×2 (10:21→21:22)
[2019-03-13] MEDS: Topiramate 25 MG TAB PO SCH ×2 (10:21→21:23)
[2019-03-13] MEDS: Thiamine 100 MG TAB PO SCH ×2 (10:22→21:23)
[2019-03-13] MEDS: Aspirin 81 mg Enteric Coated Tablet PO SCH (10:22)
[2019-03-13] MEDS: Potassium Chloride 20 MEQ TAB PO SCH ×2 (10:22→17:14)
[2019-03-13] MEDS: Metoprolol Tartrate 50 MG TAB PO SCH ×2 (10:23→21:23)
[2019-03-13] MEDS: Saccharomyces boulardii 250 MG CAP PO SCH (10:23)
[2019-03-13] MEDS: Cyanocobalamin (Vitamin B-12) 1,000 MCG TAB PO SCH ×2 (10:23→21:26)
[2019-03-13] MEDS: Folic Acid 1 MG TAB PO SCH (10:23)
[2019-03-13] MEDS: Metolazone 5 MG TAB PO SCH (10:23)
[2019-03-13] MEDS: HYDROcodone/Acetaminophen 5/325 mg Tablet PO PRN ×2 (10:23→21:39)
[2019-03-13] MEDS: Enoxaparin Sodium 40 MG/0.4 ML SYRINGE SC SCH (10:24)
[2019-03-13] MEDS: Vancomycin HCl 1 GM in Premix Bag 1 BAG IVPB SCH ×2 (10:25→21:22)
[2019-03-13] MEDS: Atorvastatin Calcium 20 MG TAB PO SCH (21:23)
[2019-03-14 04:57] LABS: Anion Gap 13 mmol/L (10-20); BUN (Urea Nitrogen) 30 mg/dL (8.4-25.7); Calc. Creatinine Clearance 47 mL/min (70-130); Calcium 9.3 mg/dL (7.8-10.44); Carbon Dioxide 35 mmol/L (23-31); Chloride 91 mmol/L (98-107); Estimated GFR-MDRD 47; Glucose 171 mg/dL (83-110); Sodium 135 mmol/L (136-145)
[2019-03-14] MEDS: Furosemide 40 MG/4 ML VIAL SLOW IVP SCH ×2 (05:36→10:53)
[2019-03-14] MEDS: Levothyroxine Sodium 100 MCG TAB PO SCH (05:36)
--- NOTE | 2019-03-14 10:11 | PDOC.HOSPP ---
- Subjective Encounter Date: 03/14/19 Encounter Time: 08:30 Subjective: Patient seen and examined. No new complaints. No overnight events - Objective Vital Signs & Weight: Vital Signs (12 hours) Temp Pulse Resp BP BP Pulse Ox 03/14/19 08:00 97.3 F L 61 18 113/63 98 03/14/19 03:44 97.9 F 61 16 106/61 97 Weight Admit Weight 199 lb Weight 184 lb I&O: 03/13/19 03/14/19 03/15/19 06:59 06:59 06:59 Intake Total 1127 1575 Output Total 8245 9054 Balance -5348 -0982 Result Diagrams: 03/12/19 04:52 03/14/19 03:33 Additional Labs: Accuchecks 03/14/19 06:03 POC Glucose 139 H EKG Reviewed by me: Yes Hospitalist ROS - Review of Systems Constitutional: denies: fever, chills, sweats, weakness, malaise, other ENT: denies: ear pain, ear discharge, nose pain, nose discharge, nose congestion , mouth pain, mouth swelling, throat pain, throat swelling, other Respiratory: denies: cough, dry, shortness of breath, hemoptysis, SOB with excertion, pleuritic pain, sputum, wheezing, other Cardiovascular: denies: chest pain, palpitations, orthopnea, paroxysmal noc. dyspnea, edema, light headedness, other Gastrointestinal: denies: nausea, vomiting, abdominal pain, diarrhea, constipation, melena, hematochezia, other Genitourinary: denies: dysuria, frequency, incontinence, hematuria, retention, other Musculoskeletal: denies: neck pain, shoulder pain, arm pain, back pain, hand pain, leg pain, foot pain, other Skin: denies: rash, lesions, cookie, bruising, other - Medication Medications: Active Medications Generic Name Dose Route Start Last Admin Trade Name Freq PRN Reason Stop Dose Admin Acetaminophen 650 mg 03/11/19 07:56 03/12/19 21:56 Tylenol PO 650 mg Q4H PRN Administration Headache/Fever/Mild Pain (1-3) Hydrocodone Bitart/Acetaminophen 1 tab 03/11/19 10:58 03/13/19 21:39 [place] 5/325 PO 1 tab Q4H PRN Administration Headache Aspirin 81 mg 03/12/19 09:00 03/13/19 10:22 Ecotrin PO 81 mg DAILY JAVON Administration Atorvastatin Calcium 10 mg 03/11/19 21:00 03/13/19 21:23 Lipitor PO 10 mg HS JAVON Administration Cholecalciferol 1,000 units 03/12/19 09:00 03/13/19 10:23 Vitamin D3 PO 1,000 units DAILY JAVON Administration Cyanocobalamin 1,000 mcg 03/11/19 21:00 03/13/19 21:26 Vitamin B-12 PO 1,000 mcg BID JAVON Administration Enoxaparin Sodium 40 mg 03/11/19 09:00 03/13/19 10:24 Lovenox SC 40 mg 0900 JAVON Administration Fluoxetine HCl 30 mg 03/11/19 21:00 03/13/19 21:22 Prozac PO 30 mg BID JAVON Administration Folic Acid 1 mg 03/12/19 09:00 03/13/19 10:23 Folvite PO 1 mg DAILY JAVON Administration Levothyroxine Sodium 100 mcg 03/12/19 06:00 03/14/19 05:36 Synthroid PO 100 mcg 0600 JAVON Administration Metoprolol Tartrate 50 mg 03/11/19 21:00 03/13/19 21:23 Lopressor PO 50 mg BID JAVON Administration Pantoprazole Sodium 20 mg 03/12/19 09:00 03/13/19 10:23 Protonix PO 20 mg DAILY JAVON Administration Potassium Chloride 20 meq 03/11/19 17:00 03/13/19 17:14 K-Dur PO 20 meq BID-WM JAVON Administration Saccharomyces Boulardii 250 mg 03/12/19 09:00 03/13/19 10:23 Florastor PO 250 mg DAILY JAVON Administration Sodium Chloride 10 ml 03/11/19 09:00 03/13/19 21:23 Flush - Normal Saline IVF 10 ml Q12HR JAVON Administration Thiamine HCl 200 mg 03/11/19 21:00 03/13/19 21:23 Thiamine PO 200 mg BID JAVON Administration Topiramate 50 mg 03/11/19 21:00 03/13/19 21:23 Topamax PO 50 mg BID JAVON Administration - Exam General Appearance: NAD, awake alert Eye: PERRL, anicteric sclera ENT: normocephalic atraumatic, no oropharyngeal lesions Neck: supple, symmetric, no JVD Heart: RRR, no gallops Heart - other findings: sm+ Respiratory: CTAB, no wheezes, no rales Gastrointestinal: soft, non-tender, non-distended Extremities: 2+ LE edema Skin: normal turgor Neurological: no focal deficits Musculoskeletal: normal tone, normal strength Psychiatric: normal affect, normal behavior Hosp A/P (1) 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 stage C congestive heart failure Code(s): I50.33 - ACUTE ON CHRONIC DIASTOLIC (CONGESTIVE) HEART FAILURE Status : Acute (2) Cellulitis of both lower extremities Code(s): L03.115 - CELLULITIS OF RIGHT LOWER LIMB; L03.116 - CELLULITIS OF LEFT LOWER LIMB Status: Acute (3) Hypothyroidism Code(s): E03.9 - HYPOTHYROIDISM, UNSPECIFIED Status: Chronic Qualifiers: Hypothyroidism type: unspecified Qualified Code(s): E03.9 - Hypothyroidism , unspecified (4) Chronic a-fib Code(s): I48.2 - CHRONIC ATRIAL FIBRILLATION * DO NOT USE * Status: Chronic (5) Chronic respiratory failure with hypoxia, on home O2 therapy Code(s): J96.11 - CHRONIC RESPIRATORY FAILURE WITH HYPOXIA; Z99.81 - DEPENDENCE ON SUPPLEMENTAL OXYGEN Status: Chronic (6) HLD (hyperlipidemia) Code(s): E78.5 - HYPERLIPIDEMIA, UNSPECIFIED Status: Chronic (7) HTN (hypertension) Code(s): I10 - ESSENTIAL (PRIMARY) HYPERTENSION Status: Chronic Qualifiers: Hypertension type: essential hypertension Qualified Code(s): I10 - Essential (primary) hypertension (8) ESTELA on CPAP Code(s): G47.33 - OBSTRUCTIVE SLEEP APNEA (ADULT) (PEDIATRIC); Z99.89 - DEPENDENCE ON OTHER ENABLING MACHINES AND DEVICES Status: Chronic (9) History of pulmonary embolism Code(s): Z86.711 - PERSONAL HISTORY OF PULMONARY EMBOLISM Status: Chronic (10) Presence of IVC filter Code(s): Z95.828 - PRESENCE OF OTHER VASCULAR IMPLANTS AND GRAFTS Status: Chronic (11) Hypokalemia Code(s): E87.6 - HYPOKALEMIA Status: Acute (12) DIANE (acute kidney injury) Code(s): N17.9 - ACUTE KIDNEY FAILURE, UNSPECIFIED Status: Acute - Plan old records reviewed/req, continue antibiotics 03/12 continue lasix replace potassium continue vancomycin discussed with daughter bedside and updated plan monitor labs and fluid restriction 03/13/19 continue lasix and zaroxlyn will repeat labs tomorrow continue vancomycin for cellulitis medication reviewed and continue to provide supportive care 03/14/19 creatinine is elevated, will dc zaroxolyn and reduce lasix daily repeat labs tomorrow will change vancomycin to rocephin ID consulted
[2019-03-14] MEDS: Thiamine 100 MG TAB PO SCH ×2 (10:48→20:46)
[2019-03-14] MEDS: Aspirin 81 mg Enteric Coated Tablet PO SCH (10:48)
[2019-03-14] MEDS: Cyanocobalamin (Vitamin B-12) 1,000 MCG TAB PO SCH ×2 (10:49→20:46)
[2019-03-14] MEDS: FLUoxetine HCl 10 MG CAP PO SCH ×2 (10:49→20:45)
[2019-03-14] MEDS: Potassium Chloride 20 MEQ TAB PO SCH ×2 (10:49→17:49)
[2019-03-14] MEDS: Metoprolol Tartrate 50 MG TAB PO SCH ×2 (10:49→20:46)
[2019-03-14] MEDS: Saccharomyces boulardii 250 MG CAP PO SCH (10:50)
[2019-03-14] MEDS: Folic Acid 1 MG TAB PO SCH (10:50)
[2019-03-14] MEDS: cefTRIAXone\\ROCEPHIN 1 GM in Sodium Chloride 0.9% 100 ML IVPB SCH (10:50)
[2019-03-14] MEDS: Enoxaparin Sodium 40 MG/0.4 ML SYRINGE SC SCH (10:50)
[2019-03-14] MEDS: Topiramate 25 MG TAB PO SCH ×2 (10:51→20:46)
[2019-03-14] MEDS: HYDROcodone/Acetaminophen 5/325 mg Tablet PO PRN (15:16)
--- NOTE | 2019-03-14 15:46 | CON ---
DATE OF CONSULTATION: REASON FOR CONSULTATION: Lower extremity skin eruption. HISTORY OF PRESENT ILLNESS: An 83-year-old, who has a history of alcoholism for many years and cardiomyopathy with previous AV block requiring pacemaker placement, coronary artery disease, systolic CHF, atrial fibrillation, and prior pulmonary embolism, who developed worsening dyspnea associated with edema in lower extremities and areas of erythema with pain. Initial findings included pulse 61, temperature 97.9, O2 saturation 97, and he appears to be O2 dependent at home and has a supply of oxygen to use 24 hours a day. He did not appear in distress on arrival. The respiratory exam showed no crackles or wheezing. Heart examination was not particularly remarkable. Abdomen was not tender. Lower extremities showed edema of +[address] to the knee, and areas of inflammatory changes described below. Initial findings also included white cell count of 9.4, hemoglobin 14.8, platelets 187, 82% neutrophils. PH 7.4, pCO2 of 31, PO2 of 147. Sodium was 141, creatinine 1.25 with a baseline of 1.18. Liver profile was normal except for alkaline phosphatase of 211. BNP was elevated at 1700. Albumin 3.7, globulin 2.2. Number of blood cultures were drawn and they were negative at 48 hours, and imaging on arrival with a chest x-ray, which shows cardiomegaly, CHF, opacification in right lung base. Currently, Mr. Mcdaniels is sitting by the bedside. He is awake, follows commands. He has a little bit of difficulty in answering questions, particularly because of trouble remembering. He denies headaches, a little bit of sore throat which he states it is chronic problem due to dryness of oral secretions. No dysphagia. No odynophagia. No neck pain. Dyspnea has improved. No chest pain. No abdominal pain. Able to urinate without difficulty and has no diarrhea. He is still with prominent pain in the lower extremities, particularly in the areas of edema in the lower aspect of the legs, right and left side. No neurological symptoms. PAST MEDICAL HISTORY: Includes ischemic cardiomyopathy, pacemaker, AV block, atrial fibrillation with ablation, sick sinus syndrome, pulmonary embolism, subdural hematoma, alcoholism, hypothyroidism, hyperlipidemia, hypertension, osteoarthritis. PAST SURGICAL HISTORY: Also includes hernia repair, IVC filter placement. CURRENT MEDICATIONS: 1. Tylenol. 2. Other p.r.n. medications. 3. Rocephin. 4. Folvite. 5. Lasix. 6. Synthroid. 7. Imodium. 8. Claritin. 9. Lopressor. 10. Nitroglycerin. 11. MiraLAX. 12. Potassium. 13. Florastor. 14. Ambien. FAMILY HISTORY: Noncontributory. Lives in one of his daughters' house in [facility]. ALLERGIES: PENICILLIN. SOCIAL HISTORY: He used to drink heavily on chronic basis. Never smoker. No other drug use. He is from his . PHYSICAL EXAMINATION: VITAL SIGNS: T-max 98.9, blood pressure 102/58, pulse 90, respirations 16, and O2 saturation 96. SKIN: Shows areas of dependent edema and erythema in the lower extremities extending from the area immediately below the right and left knees all the way to the ankles, mostly in the posterior aspect. This is associated with erythema and edema. There are also punctate areas of pustule formation around the follicular region. These areas have some hemorrhagic transformation all the way down to the feet. He has similar findings in the upper extremities, but without the associated erythema. He does have erythema in dependent areas of the abdomen with associated edema. Peripheral IV access. He is voiding in the urinal. No lymphadenopathy. HEENT: Ocular movements are conjugate. Sclerae are white. Conjunctivae are normal. Oral cavity with a few remaining teeth with marked decay and gum disease. Dry oral mucosa. Nasal passages are normal. Ear exam, normal. NECK: Supple. No jugular vein distention. LUNGS: With symmetric air entry. Diminished breath sounds in the right base. HEART: S1 and S2, regular rate. No S3 or S4. ABDOMEN: Soft with moderate distention. There is an area around the umbilicus with what appears to be a foreign body like consistency, at the site of hernia repair , probably mesh. No ascites. No organomegaly. No bladder distention. GENITAL: Normal. EXTREMITIES: The edema seems to have receded since admission in the lower extremities. Pulses are 2+ in popliteal and 1+ in dorsalis pedis. Cap refill normal. He is able to move extremities on command. NEUROLOGIC: Nonfocal. He is awake, knows his name. He knew where he was, but he has some difficulty in telling me other pieces of information. For example, he could not tell me exactly where he was living at the moment. His recollection of events was very limited. LABORATORY DATA: The followup white cell count 8.2, hemoglobin 14, platelets 166, and 79% neutrophils. Creatinine is up to 1.44, sodium 135. ASSESSMENT: 1. Cardiomyopathy, ischemic with prior pacemaker for management of sick sinus syndrome following ablation/atrial fibrillation. 2. Alcoholism. 3. Malnutrition. 4. Extremity edema with cellulitis and perifolliculitis, pustular transformation , some areas with hemorrhagic transformation. DISCUSSION: The patient might have associated cellulitis in lower extremity, most likely he does, but I wonder if there is some element of micronutrient deficiency, particularly vitamin C. We will check vitamin C levels and continue Rocephin. We will submit cultures from one of the pustules to see if we are going to have to adjust the antimicrobial therapy. Arterial supply appears to be adequate. Job ID: [id number] [id number]
[2019-03-14] MEDS: Atorvastatin Calcium 20 MG TAB PO SCH (20:46)
[2019-03-15 04:51] LABS: %Basophils 0.5 % (0.0-1.0); Hemoglobin 14.9 g/dL (14.0-18.0); RBC Distribution Width 14.8 % (11.5-14.5)
[2019-03-15 05:09] LABS: #Eosinphils 0.2 thou/uL (0.0-0.7); #Lymphocytes 0.9 thou/uL (1.20-3.40); #Monocytes 0.8 thou/uL (0.11-0.59); #Neutrophils 6.4 thou/uL (1.40-6.50); %Eosinophils 2.9 % (0.0-10.0); %Lymphocytes 10.7 % (21.0-51.0); %Neutrophils 75.8 % (42.0-75.0); Mean Corpuscular Hemoglobin 29.8 pg (27.0-31.0); Mean Platelet Volume 7.6 fL (7.4-10.4); Platelet Count 218 thou/uL (130-400); Red Blood Cell (RBC) Count 5.02 mill/uL (4.70-6.10); White Blood Cell (WBC) Count 8.5 thou/uL (4.8-10.8)
[2019-03-15 05:28] LABS: Anion Gap 14 mmol/L (10-20); BUN (Urea Nitrogen) 31 mg/dL (8.4-25.7); CRP (Inflammatory) 1.61 mg/dL (= or < 0.5); Calc. Creatinine Clearance 48 mL/min (70-130); Calcium 9.5 mg/dL (7.8-10.44); Carbon Dioxide 32 mmol/L (23-31); Chloride 93 mmol/L (98-107); Estimated GFR-MDRD 48; Glucose 110 mg/dL (83-110); Potassium 3.9 mmol/L (3.5-5.1); Sodium 135 mmol/L (136-145)
[2019-03-15] MEDS: Levothyroxine Sodium 100 MCG TAB PO SCH (05:45)
[2019-03-15] MEDS: Topiramate 25 MG TAB PO SCH ×2 (08:56→22:08)
[2019-03-15] MEDS: Saccharomyces boulardii 250 MG CAP PO SCH (08:56)
[2019-03-15] MEDS: FLUoxetine HCl 10 MG CAP PO SCH ×2 (08:56→22:05)
[2019-03-15] MEDS: Folic Acid 1 MG TAB PO SCH (08:56)
[2019-03-15] MEDS: Aspirin 81 mg Enteric Coated Tablet PO SCH (08:56)
[2019-03-15] MEDS: cefTRIAXone\\ROCEPHIN 1 GM in Sodium Chloride 0.9% 100 ML IVPB SCH (08:56)
[2019-03-15] MEDS: Enoxaparin Sodium 40 MG/0.4 ML SYRINGE SC SCH (08:57)
[2019-03-15] MEDS: Thiamine 100 MG TAB PO SCH ×2 (08:57→22:05)
[2019-03-15] MEDS: Cyanocobalamin (Vitamin B-12) 1,000 MCG TAB PO SCH ×2 (08:57→22:06)
--- NOTE | 2019-03-15 10:39 | PDOC.HOSPP ---
- Subjective Encounter Date: 03/15/19 Encounter Time: 08:30 Subjective: Patient seen and examined. No new complaints. No overnight events - Objective Vital Signs & Weight: Vital Signs (12 hours) Temp Pulse Resp BP BP Pulse Ox 03/15/19 08:52 97.7 F 61 18 100/57 L 98 03/15/19 03:04 98.5 F 74 16 118/72 93 L Weight Admit Weight 199 lb Weight 185 lb 8 oz I&O: 03/14/19 03/15/19 03/16/19 06:59 06:59 06:59 Intake Total 1575 1440 Output Total 5107 2031 Balance -1742 -8759 Result Diagrams: 03/15/19 04:11 03/15/19 04:11 EKG Reviewed by me: Yes Hospitalist ROS - Review of Systems ENT: denies: ear pain, ear discharge, nose pain, nose discharge, nose congestion , mouth pain, mouth swelling, throat pain, throat swelling, other Respiratory: denies: cough, dry, shortness of breath, hemoptysis, SOB with excertion, pleuritic pain, sputum, wheezing, other Cardiovascular: denies: chest pain, palpitations, orthopnea, paroxysmal noc. dyspnea, edema, light headedness, other Gastrointestinal: denies: nausea, vomiting, abdominal pain, diarrhea, constipation, melena, hematochezia, other Genitourinary: denies: dysuria, frequency, incontinence, hematuria, retention, other - Medication Medications: Active Medications Generic Name Dose Route Start Last Admin Trade Name Freq PRN Reason Stop Dose Admin Acetaminophen 650 mg 03/11/19 07:56 03/12/19 21:56 Tylenol PO 650 mg Q4H PRN Administration Headache/Fever/Mild Pain (1-3) Hydrocodone Bitart/Acetaminophen 1 tab 03/11/19 10:58 03/14/19 15:16 [place] 5/325 PO 1 tab Q4H PRN Administration Headache Aspirin 81 mg 03/12/19 09:00 03/15/19 08:56 Ecotrin PO 81 mg DAILY JAVON Administration Atorvastatin Calcium 10 mg 03/11/19 21:00 03/14/19 20:46 Lipitor PO 10 mg HS JAVON Administration Cholecalciferol 1,000 units 03/12/19 09:00 03/15/19 08:57 Vitamin D3 PO 1,000 units DAILY JAVON Administration Cyanocobalamin 1,000 mcg 03/11/19 21:00 03/15/19 08:57 Vitamin B-12 PO 1,000 mcg BID JAVON Administration Enoxaparin Sodium 40 mg 03/11/19 09:00 03/15/19 08:57 Lovenox SC 40 mg 0900 JAVON Administration Fluoxetine HCl 30 mg 03/11/19 21:00 03/15/19 08:56 Prozac PO 30 mg BID JAVON Administration Folic Acid 1 mg 03/12/19 09:00 03/15/19 08:56 Folvite PO 1 mg DAILY JAVON Administration Furosemide 40 mg 03/14/19 09:00 03/14/19 10:53 Lasix SLOW IVP 40 mg DAILY JAVON Administration Levothyroxine Sodium 100 mcg 03/12/19 06:00 03/15/19 05:45 Synthroid PO 100 mcg 0600 JAVON Administration Metoprolol Tartrate 50 mg 03/11/19 21:00 03/14/19 20:46 Lopressor PO 50 mg BID JAVON Administration Pantoprazole Sodium 20 mg 03/12/19 09:00 03/15/19 08:56 Protonix PO 20 mg DAILY JAVON Administration Potassium Chloride 20 meq 03/11/19 17:00 03/14/19 17:49 K-Dur PO 20 meq BID-WM JAVON Administration Saccharomyces Boulardii 250 mg 03/12/19 09:00 03/15/19 08:56 Florastor PO 250 mg DAILY JAVON Administration Sodium Chloride 10 ml 03/11/19 09:00 03/15/19 08:57 Flush - Normal Saline IVF 10 ml Q12HR JAVON Administration Thiamine HCl 200 mg 03/11/19 21:00 03/15/19 08:57 Thiamine PO 200 mg BID JAVON Administration Topiramate 50 mg 03/11/19 21:00 03/15/19 08:56 Topamax PO 50 mg BID JAVON Administration - Exam General Appearance: NAD, awake alert Eye: PERRL, anicteric sclera ENT: normocephalic atraumatic, no oropharyngeal lesions Neck: supple, symmetric, no JVD Heart: RRR, no murmur, no gallops Respiratory: CTAB, no wheezes, no rales Gastrointestinal: soft, non-tender, non-distended Extremities: 1+ LE edema Skin: normal turgor, no lesions Neurological: no focal deficits Musculoskeletal: normal tone Psychiatric: normal affect, normal behavior Hosp A/P (1) 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 stage C congestive heart failure Code(s): I50.33 - ACUTE ON CHRONIC DIASTOLIC (CONGESTIVE) HEART FAILURE Status : Acute (2) Cellulitis of both lower extremities Code(s): L03.115 - CELLULITIS OF RIGHT LOWER LIMB; L03.116 - CELLULITIS OF LEFT LOWER LIMB Status: Acute (3) Hypothyroidism Code(s): E03.9 - HYPOTHYROIDISM, UNSPECIFIED Status: Chronic Qualifiers: Hypothyroidism type: unspecified Qualified Code(s): E03.9 - Hypothyroidism , unspecified (4) Chronic a-fib Code(s): I48.2 - CHRONIC ATRIAL FIBRILLATION * DO NOT USE * Status: Chronic (5) Chronic respiratory failure with hypoxia, on home O2 therapy Code(s): J96.11 - CHRONIC RESPIRATORY FAILURE WITH HYPOXIA; Z99.81 - DEPENDENCE ON SUPPLEMENTAL OXYGEN Status: Chronic (6) HLD (hyperlipidemia) Code(s): E78.5 - HYPERLIPIDEMIA, UNSPECIFIED Status: Chronic (7) HTN (hypertension) Code(s): I10 - ESSENTIAL (PRIMARY) HYPERTENSION Status: Chronic Qualifiers: Hypertension type: essential hypertension Qualified Code(s): I10 - Essential (primary) hypertension (8) ESTELA on CPAP Code(s): G47.33 - OBSTRUCTIVE SLEEP APNEA (ADULT) (PEDIATRIC); Z99.89 - DEPENDENCE ON OTHER ENABLING MACHINES AND DEVICES Status: Chronic (9) History of pulmonary embolism Code(s): Z86.711 - PERSONAL HISTORY OF PULMONARY EMBOLISM Status: Chronic (10) Presence of IVC filter Code(s): Z95.828 - PRESENCE OF OTHER VASCULAR IMPLANTS AND GRAFTS Status: Chronic (11) Hypokalemia Code(s): E87.6 - HYPOKALEMIA Status: Acute (12) DIANE (acute kidney injury) Code(s): N17.9 - ACUTE KIDNEY FAILURE, UNSPECIFIED Status: Acute - Plan old records reviewed/req, plan discussed w/ family, continue antibiotics 03/12 continue lasix replace potassium continue vancomycin discussed with daughter bedside and updated plan monitor labs and fluid restriction 03/13/19 continue lasix and zaroxlyn will repeat labs tomorrow continue vancomycin for cellulitis medication reviewed and continue to provide supportive care 03/14/19 creatinine is elevated, will dc zaroxolyn and reduce lasix daily repeat labs tomorrow will change vancomycin to rocephin ID consulted 03/15/19 will change to cefepime to cover pseudomonas medication reviewed as above and symptomatic treatment wound care continue lasix
[2019-03-15] MEDS: Furosemide 40 MG/4 ML VIAL SLOW IVP SCH (12:33)
[2019-03-15] MEDS: Metoprolol Tartrate 50 MG TAB PO SCH ×2 (12:33→22:06)
[2019-03-15] MEDS: Potassium Chloride 20 MEQ TAB PO SCH ×2 (12:33→17:42)
[2019-03-15] MEDS: Cefepime 2 GM in Sodium Chloride 0.9% 100 ML IVPB SCH (22:03)
[2019-03-15] MEDS: Atorvastatin Calcium 20 MG TAB PO SCH (22:06)
[2019-03-16] MEDS: Levothyroxine Sodium 100 MCG TAB PO SCH (05:55)
[2019-03-16] MEDS: Furosemide 40 MG/4 ML VIAL SLOW IVP SCH (09:02)
[2019-03-16] MEDS: Cefepime 2 GM in Sodium Chloride 0.9% 100 ML IVPB SCH (09:02)
[2019-03-16] MEDS: Enoxaparin Sodium 40 MG/0.4 ML SYRINGE SC SCH (09:02)
[2019-03-16] MEDS: Folic Acid 1 MG TAB PO SCH (09:03)
[2019-03-16] MEDS: Aspirin 81 mg Enteric Coated Tablet PO SCH (09:03)
[2019-03-16] MEDS: Potassium Chloride 20 MEQ TAB PO SCH (09:03)
[2019-03-16] MEDS: FLUoxetine HCl 10 MG CAP PO SCH (09:03)
[2019-03-16] MEDS: Thiamine 100 MG TAB PO SCH (09:03)
[2019-03-16] MEDS: Cyanocobalamin (Vitamin B-12) 1,000 MCG TAB PO SCH (09:03)
[2019-03-16] MEDS: Saccharomyces boulardii 250 MG CAP PO SCH (09:03)
[2019-03-16] MEDS: Metoprolol Tartrate 50 MG TAB PO SCH (09:04)
[2019-03-16] MEDS: Topiramate 25 MG TAB PO SCH (09:04)
--- NOTE | 2019-03-16 10:21 | PDOC.HOSPP ---
- Subjective Encounter Date: 03/16/19 Encounter Time: 08:00 Subjective: Patient seen and examined. No new complaints. No overnight events - Objective Vital Signs & Weight: Vital Signs (12 hours) Temp Pulse Resp BP BP Pulse Ox 03/16/19 08:00 97.9 F 61 18 121/74 95 03/16/19 03:10 97.6 F 60 16 102/55 L 96 Weight Admit Weight 199 lb Weight 178 lb 8 oz I&O: 03/15/19 03/16/19 03/17/19 06:59 06:59 06:59 Intake Total 1440 720 Output Total 8245 7112 Balance -4378 -7832 Result Diagrams: 03/15/19 04:11 03/15/19 04:11 EKG Reviewed by me: Yes Hospitalist ROS - Review of Systems ENT: denies: ear pain, ear discharge, nose pain, nose discharge, nose congestion , mouth pain, mouth swelling, throat pain, throat swelling, other Respiratory: denies: cough, dry, shortness of breath, hemoptysis, SOB with excertion, pleuritic pain, sputum, wheezing, other Cardiovascular: denies: chest pain, palpitations, orthopnea, paroxysmal noc. dyspnea, edema, light headedness, other Gastrointestinal: denies: nausea, vomiting, abdominal pain, diarrhea, constipation, melena, hematochezia, other Genitourinary: denies: dysuria, frequency, incontinence, hematuria, retention, other Musculoskeletal: denies: neck pain, shoulder pain, arm pain, back pain, hand pain, leg pain, foot pain, other - Medication Medications: Active Medications Generic Name Dose Route Start Last Admin Trade Name Lacey PRN Reason Stop Dose Admin Acetaminophen 650 mg 03/11/19 07:56 03/12/19 21:56 Tylenol PO 650 mg Q4H PRN Administration Headache/Fever/Mild Pain (1-3) Hydrocodone Bitart/Acetaminophen 1 tab 03/11/19 10:58 03/14/19 15:16 [place] 5/325 PO 1 tab Q4H PRN Administration Headache Aspirin 81 mg 03/12/19 09:00 03/16/19 09:03 Ecotrin PO 81 mg DAILY JAVON Administration Atorvastatin Calcium 10 mg 03/11/19 21:00 03/15/19 22:06 Lipitor PO 10 mg HS JAVON Administration Cholecalciferol 1,000 units 03/12/19 09:00 03/16/19 09:03 Vitamin D3 PO 1,000 units DAILY JAVON Administration Cyanocobalamin 1,000 mcg 03/11/19 21:00 03/16/19 09:03 Vitamin B-12 PO 1,000 mcg BID JAVON Administration Enoxaparin Sodium 40 mg 03/11/19 09:00 03/16/19 09:02 Lovenox SC 40 mg 0900 JAVON Administration Fluoxetine HCl 30 mg 03/11/19 21:00 03/16/19 09:03 Prozac PO 30 mg BID JAVON Administration Folic Acid 1 mg 03/12/19 09:00 03/16/19 09:03 Folvite PO 1 mg DAILY JAVON Administration Furosemide 40 mg 03/14/19 09:00 03/16/19 09:02 Lasix SLOW IVP 40 mg DAILY JAVON Administration Guaifenesin 200 mg 03/11/19 07:56 03/15/19 12:36 Robitussin Sf PO 200 mg Q4H PRN Administration Cough Cefepime HCl 2 gm/ Sodium 100 mls @ 200 mls/hr 03/15/19 21:00 03/16/19 09:02 Chloride IVPB 100 mls Q12HR JAVON Administration Levothyroxine Sodium 100 mcg 03/12/19 06:00 03/16/19 05:55 Synthroid PO 100 mcg 0600 JAVON Administration Metoprolol Tartrate 50 mg 03/11/19 21:00 03/16/19 09:04 Lopressor PO 50 mg BID JAVON Administration Pantoprazole Sodium 20 mg 03/12/19 09:00 03/16/19 09:03 Protonix PO 20 mg DAILY JAVON Administration Potassium Chloride 20 meq 03/11/19 17:00 03/16/19 09:03 K-Dur PO 20 meq BID-WM JAVON Administration Saccharomyces Boulardii 250 mg 03/12/19 09:00 03/16/19 09:03 Florastor PO 250 mg DAILY JAVON Administration Sodium Chloride 10 ml 03/11/19 09:00 03/16/19 09:04 Flush - Normal Saline IVF 10 ml Q12HR JAVON Administration Thiamine HCl 200 mg 03/11/19 21:00 03/16/19 09:03 Thiamine PO 200 mg BID JAVON Administration Topiramate 50 mg 03/11/19 21:03/16/19 09:04 Topamax PO 50 mg BID JAVON Administration - Exam General Appearance: NAD, awake alert Eye: PERRL ENT: normocephalic atraumatic, no oropharyngeal lesions Neck: supple, symmetric, no JVD Heart: RRR, no gallops, murmur present Respiratory: CTAB, no wheezes, no rales Gastrointestinal: soft, non-tender, non-distended Extremities: 1+ LE edema Skin: normal turgor, no lesions Neurological: no focal deficits Musculoskeletal: normal tone, normal strength Psychiatric: normal affect, normal behavior Hosp A/P (1) 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 stage C congestive heart failure Code(s): I50.33 - ACUTE ON CHRONIC DIASTOLIC (CONGESTIVE) HEART FAILURE Status : Acute (2) Cellulitis of both lower extremities Code(s): L03.115 - CELLULITIS OF RIGHT LOWER LIMB; L03.116 - CELLULITIS OF LEFT LOWER LIMB Status: Acute (3) Hypothyroidism Code(s): E03.9 - HYPOTHYROIDISM, UNSPECIFIED Status: Chronic Qualifiers: Hypothyroidism type: unspecified Qualified Code(s): E03.9 - Hypothyroidism , unspecified (4) Chronic a-fib Code(s): I48.2 - CHRONIC ATRIAL FIBRILLATION * DO NOT USE * Status: Chronic (5) Chronic respiratory failure with hypoxia, on home O2 therapy Code(s): J96.11 - CHRONIC RESPIRATORY FAILURE WITH HYPOXIA; Z99.81 - DEPENDENCE ON SUPPLEMENTAL OXYGEN Status: Chronic (6) HLD (hyperlipidemia) Code(s): E78.5 - HYPERLIPIDEMIA, UNSPECIFIED Status: Chronic (7) HTN (hypertension) Code(s): I10 - ESSENTIAL (PRIMARY) HYPERTENSION Status: Chronic Qualifiers: Hypertension type: essential hypertension Qualified Code(s): I10 - Essential (primary) hypertension (8) ESTELA on CPAP Code(s): G47.33 - OBSTRUCTIVE SLEEP APNEA (ADULT) (PEDIATRIC); Z99.89 - DEPENDENCE ON OTHER ENABLING MACHINES AND DEVICES Status: Chronic (9) History of pulmonary embolism Code(s): Z86.711 - PERSONAL HISTORY OF PULMONARY EMBOLISM Status: Chronic (10) Presence of IVC filter Code(s): Z95.828 - PRESENCE OF OTHER VASCULAR IMPLANTS AND GRAFTS Status: Chronic (11) Hypokalemia Code(s): E87.6 - HYPOKALEMIA Status: Acute (12) DIANE (acute kidney injury) Code(s): N17.9 - ACUTE KIDNEY FAILURE, UNSPECIFIED Status: Acute - Plan old records reviewed/req, continue antibiotics, PT/OT, 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 03/12 continue lasix replace potassium continue vancomycin discussed with daughter bedside and updated plan monitor labs and fluid restriction 03/13/19 continue lasix and zaroxlyn will repeat labs tomorrow continue vancomycin for cellulitis medication reviewed and continue to provide supportive care 03/14/19 creatinine is elevated, will dc zaroxolyn and reduce lasix daily repeat labs tomorrow will change vancomycin to rocephin ID consulted 03/15/19 will change to cefepime to cover pseudomonas medication reviewed as above and symptomatic treatment wound care continue lasix 03/16/19 continue cefepime await culture result to decide oral antibiotic medication reviewed as above and continue to provide supportive care will ask dr pizarro about antibiotic duration and selection
[2019-03-16] MEDS: HYDROcodone/Acetaminophen 5/325 mg Tablet PO PRN (11:06)
[2019-03-16 11:08] VITALS: BP 100/59; TEMP 98.3
--- NOTE | 2019-03-16 12:18 | DIS ---
DATE OF ADMISSION: 03/11/2019 DATE OF DISCHARGE: 03/16/2019 PRIMARY CARE PHYSICIAN: Russell Scott MD DISCHARGE DISPOSITION: care home. PRIMARY DISCHARGE DIAGNOSES: 1. Acute on chronic diastolic congestive heart failure. 2. Bilateral lower extremity cellulitis. 3. Hypokalemia. SECONDARY DISCHARGE DIAGNOSES: 1. History of sleep apnea, on CPAP. 2. Hypothyroidism. 3. Hypertension. 4. History of histoplasmosis. 5. Chronic respiratory failure with hypoxia. 6. Chronic atrial fibrillation. 7. History of pulmonary embolism, status post IVC filter. 8. Chronic diastolic heart failure. PRIMARY PROCEDURE/OPERATION: None. RADIOLOGICAL INVESTIGATION: Chest x-ray reported as cardiomegaly and right pleural effusion. SIGNIFICANT LABORATORY DATA: WBC 8.5, hemoglobin 14.9, and platelets 218. Sodium 135, potassium 3.9, BUN 31, creatinine 1.42, calcium 9.5. Troponin 0.144. CRP 1.61. Skin culture grew pseudomonas. Blood culture negative. DISCHARGE MEDICATION: 1. Lipitor 10 mg p.o. at bedtime. 2. Vitamin D3 1000 units p.o. daily. 3. Vitamin B12 1000 mcg p.o. b.i.d. 4. Fluoxetine 30 mg p.o. b.i.d. 5. Folic acid 0.8 mg p.o. daily. 6. Lasix 60 mg b.i.d. 7. [place] 10 one tablet daily p.r.n. 8. Levothyroxine 100 mcg p.o. daily. 9. Multivitamin one tablet p.o. daily. 10. Protonix 20 mg daily. 11. MiraLAX 17 g p.o. daily. 12. Florastor 250 mg daily. 13. Thiamine 200 mg p.o. b.i.d. 14. Topamax 50 mg p.o. b.i.d. 15. Cipro 500 mg p.o. twice daily for 10 days. 16. Aspirin 81 mg daily. 17. Ceftin 250 mg p.o. b.i.d. for 10 days. 18. Metoprolol 50 mg p.o. b.i.d. CONTRAINDICATION: None. CODE STATUS: Full code. INPATIENT CARPET WINDER: Dr. Ugarte was consulted for cellulitis. TEST RESULT PENDING ON DISCHARGE: None. ALLERGIES: PENICILLIN. DISCHARGE PLAN: Posthospital, the patient is planned to discharge [facility]. The patient will follow up with Dr. Jaquez and Dr. Scott. HOSPITAL COURSE: An 83-year-old male who has underlying history of diastolic heart failure with predominantly right-sided heart failure with severe tricuspid regurgitation, who was admitted by me. Please see my HPI for further details. The patient was having bilateral lower extremity edema as well as bilateral lower extremity cellulitis. The patient was requiring IV diuresis with Zaroxolyn. Because of poor diuresis, patient developed a mild renal insufficiency, but he became euvolemic. He had elevated troponin due to demand ischemia, but his troponin is always chronically elevated. While in hospital, his low potassium was replaced. He was also evaluated by wound care team while in hospital for his cellulitis. His cellulitis was related with pseudomonas infection and based on culture and sensitivity result we changed to Ceftin and Cipro on discharge. On admission, initially he was given vancomycin and subsequently, we changed to Rocephin and subsequently, we changed to cefepime. While in hospital, he received IV diuresis therapy and with that his lower extremity edema completely improved and the patient is becoming euvolemic. At this point, the patient is medically stable for discharge. Dr. Ugarte had sent vitamin C level. He will continue above-mentioned medication. The patient is seen and examined at bedside today. The patient is high risk for recurrent admission. He needs fluid restriction and salt restriction at [facility] and wound care. Job ID: [id number]
--- NOTE | 2019-03-16 16:13 | PRG ---
DATE OF SERVICE: 03/16/2019 SUBJECTIVE: Less pain in the lower extremities. No respiratory symptoms or abdominal pain. His vital signs are normal. The areas of erythema are improving and pustules are improving as well. Cultures with P aeruginosa, Staph aureus with pending susceptibilities on the second gram-negative burt. ASSESSMENT AND DISCUSSION: Cardiomyopathy, ischemic with pacemaker; sick sinus syndrome; alcoholism; malnutrition; edema in extremities with perifolliculitis and pustules due to P aeruginosa. Recommend oral quinolone for discharge planning plus continuation of wound care and consider compressive dressings. Job ID: [id number]
== END 2019-03-16 16:33 | DRG 602 ==
LOC: ERS 19:11 → 2SE 03-11 03:22 → 2NO 03-13 21:09
PROVIDERS: ADMIT Internal Medicine; ATTEND Internal Medicine
DX: L03.115 Cellulitis of right lower limb (principal); I50.33 Acute on chronic diastolic (congestive) heart failure; J96.11 Chronic respiratory failure with hypoxia; I48.20 Chronic atrial fibrillation, unspecified; I24.8 Other forms of acute ischemic heart disease; N17.9 Acute kidney failure, unspecified; L03.116 Cellulitis of left lower limb; E78.5 Hyperlipidemia, unspecified; I11.0 Hypertensive heart disease with heart failure; J44.9 Chronic obstructive pulmonary disease, unspecified; M19.91 Primary osteoarthritis, unspecified site; Z98.890 Other specified postprocedural states; F41.9 Anxiety disorder, unspecified; F32.9 Major depressive disorder, single episode, unspecified; Z88.0 Allergy status to penicillin; Z79.899 Other long term (current) drug therapy; E03.9 Hypothyroidism, unspecified; I10 Essential (primary) hypertension; K21.9 Gastro-esophageal reflux disease without esophagitis; E87.6 Hypokalemia; G47.33 Obstructive sleep apnea (adult) (pediatric); Z99.81 Dependence on supplemental oxygen; Z86.711 Personal history of pulmonary embolism; Z95.828 Presence of other vascular implants and grafts; I25.5 Ischemic cardiomyopathy; L01.02 Bockhart's impetigo; I49.5 Sick sinus syndrome; B96.5 Pseudomonas (aeruginosa) (mallei) (pseudomallei) as the cause of diseases classified elsewhere
CPT/HCPCS: 36415; 36416; 71045; 80048; 80053; 80202; 82180; 82553; 82805; 83735; 83880; 84484; 85025; 86140; 87040; 87070; 87077; 87186; 87205; 93005; 93798; 96365; 96375; J0692; J0696; J1650; J1940; J2270; J3370; J3490; J7050

== ENCOUNTER 2019-06-02 09:09 | Outpatient (CLI) | payer MEDICARE ==
--- NOTE | 2019-06-02 09:51 | RAD ---
PA AND LATERAL CHEST: Date: 06/02/2019 COMPARISON: 09/09/2017 study. HISTORY: Shortness of breath and cough x1 week. FINDINGS: Heart size is enlarged. Pacemaker is present. Right-sided pleural and parenchymal changes are very si milar to that previous exam. Review is also made of a 03/20/19 study and shows the appearance as stab le. IMPRESSION: Stable appearance to the chest. POS: [facility]
== END 2019-06-02 09:10 | disposition home or self-care (01) ==
LOC: SCSRAD 09:09
PROVIDERS: ATTEND Family Medicine
DX: J90 Pleural effusion, not elsewhere classified (principal)
CPT/HCPCS: 71046

== ENCOUNTER 2019-06-18 06:09 | Observation (INO) | payer MEDICARE ==
[2019-06-18 07:28] LABS: #Lymphocytes 1.1 thou/uL (1.20-3.40); #Monocytes 0.9 thou/uL (0.11-0.59); #Neutrophils 8.3 thou/uL (1.40-6.50); %Basophils 0.4 % (0.0-1.0); %Eosinophils 0.4 % (0.0-10.0); %Lymphocytes 10.3 % (21.0-51.0); %Monocytes 8.5 % (0.0-10.0); %Neutrophils 80.4 % (42.0-75.0); Hemoglobin 12.9 g/dL (14.0-18.0); Mean Corpuscular HGB CONC 32.1 g/dL (32.0-36.0); Mean Corpuscular Hemoglobin 30.6 pg (27.0-31.0); Mean Corpuscular Volume 95.3 fL (78.0-98.0); Mean Platelet Volume 8.3 fL (7.4-10.4); Platelet Count 220 thou/uL (130-400); Red Blood Cell (RBC) Count 4.23 mill/uL (4.70-6.10); White Blood Cell (WBC) Count 10.3 thou/uL (4.8-10.8)
[2019-06-18 07:37] LABS: ALT (SGPT) 21 U/L (8-55); AST (SGOT) 24 U/L (5-34); Albumin 3.9 g/dL (3.4-4.8); Alkaline Phosphatase 268 U/L (40-110); Anion Gap 15 mmol/L (10-20); BUN (Urea Nitrogen) 46 mg/dL (8.4-25.7); Bilirubin, Total 0.8 mg/dL (0.2-1.2); CK (CPK) 127 U/L (30-200); Calc. Creatinine Clearance 0 mL/min (70-130); Calcium 8.8 mg/dL (7.8-10.44); Carbon Dioxide 19 mmol/L (23-31); Chloride 109 mmol/L (98-107); Estimated GFR-MDRD 41; Globulin 2.1 g/dL (2.4-3.5); Glucose 113 mg/dL (83-110); Potassium 4.4 mmol/L (3.5-5.1); Sodium 139 mmol/L (136-145)
--- NOTE | 2019-06-18 07:59 | CT ---
PRELIMINARY REPORT/[facility]/EMERGENCY AFTER HOURS PROCEDURE EXAM: CT Head Without Intravenous Contrast. CLINICAL HISTORY: MKaylen presents to the ED via EMS for evaluation s/p trip and fall onset last night at 1800. Pt reports he fell and was unable to get up TECHNIQUE: Axial computed tomography images of the head/brain without intravenous contrast. 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 No mass lesion. No CT evidence for acute territorial inf arct. No midline shift or extra-axial collection. There is a mild age appropriate brain atrophy with mild periventricular white matter disease. VENTRICLES: No hydrocephalus. ORBITS: The orbits are unremarkable. SINUSES AND MASTOIDS: The paranasal sinuses and mastoid air cells are clear. SOFT TISSUES: No significant facial or scalp soft tissue swelling evident. No radiopaque foreign body is seen. BONES: No acute skull fracture. IMPRESSION: No acute intracranial abnormality. ELECTRONICALLY SIGNED BY: Lissa Burton MD Jun 18, 2019 7:24:30 AM CDT This report is intended for review by the ordering physician only, in accordance of law. If you recei ve this report in error, please call [facility] at [phone]. FINAL REPORT Exam: Head CT without contrast HISTORY: Fall. Pain. Head injury. COMPARISON: 02/09/2019 FINDINGS: Hemorrhage: No intraparenchymal hemorrhage or extra-axial hematoma. Brain parenchyma: Cortical olivares-white matter differentiation is preserved. No mass effect or midline shift. Basilar cisterns are patent. Ventricular system: Ventricles and sulci are patent and symmetric. Calvarium: Intact. Sinuses and mastoid air cells: Adequate aeration. IMPRESSION: 1. This report is in agreement with initial report by [facility]. 2. No acute intracranial process. Transcribed Date/Time: 06/18/2019 8:03 AM
[2019-06-18 08:15] LABS: Bilirubin Negative (Negative); Blood, Urine Negative (Negative); Clarity Clear (Clear); Glucose, Urine (Dipstick) Normal (Negative); Leukocyte Negative Leu/uL (Negative); Nitrite Negative (Negative); Protein, Urine (Dipstick) Negative (Neg-Trace); Urobilinogen 3 mg/dL (Less than 2)
--- NOTE | 2019-06-18 08:56 | CT ---
PRELIMINARY REPORT/[facility]/EMERGENCY AFTER HOURS PROCEDURE: EXAM: CT Thoracic Spine Without Intravenous Contrast. CLINICAL HISTORY: Additional history obtained from EMS, M83 presents to the ED via EMS for evaluation s/p trip and fall onset last night at 1800. Pt reports he fell and was unable to get up. Pt reports left hip pain. Pt reports left forearm skin tear. Pt reports he is supposed to wear O2 at home for COPD but was not wea ring it when he fell. TECHNIQUE: Axial computed tomography images of the thoracic spine without intravenous contrast. Sagittal and cor onal reformations performed. CONTRAST: Without COMPARISON: None provided. FINDINGS: BONES: The patient has a diffuse idiopathic skeletal hyperostosis of the thoracic spine. There is a s ubtle questionable wedge deformity of the T1 vertebral body and mild compression fracture cannot be e xcluded. DISCS / DEGENERATIVE CHANGES: No significant disc or facet degeneration. No significant central canal or neural foraminal stenosis. SOFT TISSUES: There is a small vessel with a partially visualized consolidation of the lung with calc ification. There is also pleural thickening in the right hemithorax. There is small left pleural effu marine. MISCELLANEOUS: There is small amount of ascites. There is a mild to moderate emphysema with groundgla ss opacities. IMPRESSION: 1. There is a small vessel with a partially visualized consolidation of the lung with calcification. There is also pleural thickening in the right hemithorax. 2. There is small left pleural effusion. 3. There is small amount of ascites. 4. There is a mild to moderate emphysema with groundglass opacities. 5. The patient has a diffuse idiopathic skeletal hyperostosis of the thoracic spine. 6. There is a subtle questionable wedge deformity of the T1 vertebral body and mild compression fract ure cannot be excluded. ELECTRONICALLY SIGNED BY: Lissa Burton MD Jun 18, 2019 7:45:36 AM CDT This report is intended for review by the ordering physician only, in accordance of law. If you recei ve this report in error, please call [facility] at [phone]. FINAL REPORT EMERGENCY AFTER HOURS CT THORACIC SPINE: IMPRESSION: Changes of DISH are demonstrated. There is no evidence for fracture or traumatic subluxation. Mass-li ke consolidation at the right lung base with loculated pleural fluid is similar to CT angio chest of 02/05/2019. POS: [facility]
--- NOTE | 2019-06-18 09:27 | RAD ---
TWO VIEWS LEFT HIP: DATE: 06/18/2019. PROVIDED CLINICAL HISTORY: Pain status post fall. FINDINGS: No comparisons. Postoperative changes of left total hip arthroplasty are demonstrated, without evide nce for hardware complication. Extensive heterotopic ossification is seen about the left hip. There is no evidence for a fracture or other acute osseous abnormality. If there is persistent clinical c oncern, conservative management and followup imaging are advised. IMPRESSION: As above. POS: [facility]
--- NOTE | 2019-06-18 09:35 | RAD ---
PELVIC RADIOGRAPH: DATE: 06/18/2019. PROVIDED CLINICAL HISTORY: Pain status post fall. FINDINGS: Postoperative changes of bilateral hip arthroplasty demonstrated, without evidence for hardware compl ication involving the visualized portions of either arthroplasty. There is no evidence for a fractur e or other acute osseous abnormality. If there is persistent clinical concern, conservative manageme nt and followup imaging are advised. IMPRESSION: As above. POS: [facility]
[2019-06-18] MEDS ORDERED: Ondansetron ODT 4 MG TAB PO PRN (10:18)
[2019-06-18] MEDS ORDERED: Ondansetron PF 4 MG/2 ML Vial IVP PRN (10:18)
[2019-06-18] MEDS ORDERED: Acetaminophen 325 MG TAB PO PRN (10:19)
[2019-06-18] MEDS ORDERED: Bisacodyl 5 MG TAB PO PRN (11:49)
[2019-06-18] MEDS: Sodium Chloride 0.9% 1,000 ML IV SCH (13:36)
--- NOTE | 2019-06-18 14:35 | HP ---
PRIMARY CARE PROVIDER: Dr. Russell Scott. CHIEF COMPLAINT: Fall. HISTORY OF PRESENT ILLNESS: Mr. Mcdaniels is a pleasant 83-year-old gentleman, who was seen at [facility] on June 18, 2019. He reports that over the last few weeks he has been falling on almost daily basis. He denies any chest pain. He denies any lightheadedness. He reports that the falls because of loss of balance. He tripped and fell last night around 1800 hours. He was unable to get up. He was, therefore, brought to the emergency room. Initially, he complained of left hip pain, but now denies any left hip pain. REVIEW OF SYSTEMS: All systems were reviewed and found to be negative except for pertinent positives mentioned above. PAST MEDICAL HISTORY: Atrial fibrillation, not on anticoagulation secondary to falls; coronary artery disease; congestive heart failure; hypothyroidism; dyslipidemia; hypertension; and osteoarthritis. PAST SURGICAL HISTORY: Pacemaker placement, cardiac ablation, hernia repair, bilateral hip and left heel surgery. PSYCHIATRIC HISTORY: Depression. SOCIAL HISTORY: The patient quit alcohol use about 4 months ago. Prior to that , he used to drink more than 2 drinks a day. He denies any tobacco use. He denies any recreational drug use. FAMILY HISTORY: Significant for heart disease among several family members. ALLERGIES: PENICILLIN. CURRENT MEDICATIONS: These need to be clarified, but appeared to include: 1. Levothyroxine. 2. Folic acid. 3. Lasix. 4. Thiamine. 5. Amitriptyline. 6. Ipratropium. 7. Cranberry. 8. Atorvastatin. 9. Florastor. 10. Omeprazole. 11. MiraLAX. 12. Lisinopril. PHYSICAL EXAMINATION: GENERAL: On examination, Mr. Mcdaniels is awake and alert, not in acute distress. VITAL SIGNS: Blood pressure is 143/92, pulse 60, respiratory rate 18, and oxygen saturation 93% on room air. He is afebrile. EYES: No scleral icterus. No conjunctival pallor. ENT: Dry mucosal membranes. No oropharyngeal erythema or exudates. NECK: Supple and nontender. Trachea is midline. RESPIRATORY: Accessory muscles of breathing are not active. Chest wall movements are symmetric bilaterally. LUNGS: Clear to auscultation without wheeze, rhonchi, or crepitations. CARDIOVASCULAR: S1 and S2 are heard, regular. Peripheral pulses palpable. ABDOMEN: Soft and nontender. Bowel sounds are heard. NEUROLOGIC: Cranial nerves 2 through 12 are intact. Deep tendon reflexes 2+. MUSCULOSKELETAL: Power is 5/5 in all 4 extremities. SKIN: Bruising and skin tear over the left forearm, leg wound as documented. LYMPHATIC: No cervical lymphadenopathy. PSYCHIATRIC: Normal mood and normal affect. The patient is oriented to person, place, and time. LABORATORY DATA: Mr. Mcdaniels's labs and investigations were reviewed. I reviewed his electrocardiogram, which shows electronic ventricular paced rhythm, no ST changes to suggest an acute coronary syndrome. I also reviewed his noncontrast CT scan of the brain, which does not show any acute intracranial abnormality. Left hip x-ray did not show any evidence of fracture. 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 X-ray of the pelvis did not show any evidence for fracture. CT scan of the thoracic spine showed changes of diffuse idiopathic skeletal hyperostosis of the thoracic spine. He has subtle questionable wedge deformity of the T1 vertebral body and mild compression fracture cannot be excluded. He has normal white count, normocytic anemia with hemoglobin 12.9, normal platelet count, normal sodium, normal potassium, elevated blood urea nitrogen of 46, elevated creatinine of 1.62, last known creatinine 1.09 on May 24, 2019, elevated alkaline phosphatase of 268, it was 130 on April 28, 2019, otherwise unremarkable LFTs and normal lactic acid of 1.5. Urinalysis is negative for nitrite and leukocyte esterase. ASSESSMENT AND PLAN: Mr. Mcdaniels is a pleasant 83-year-old gentleman, who was seen at [facility] on June 18, 2019. His problem list includes: 1. Acute kidney injury: Mr. Mcdaniels is presenting with acute kidney injury. Clinically, he is dry. I will admit him to the hospital and treated with intravenous fluids. We will recheck creatinine and proceed depending on how he does. I will also hold nephrotoxic medications once home medications are clarified. 2. Dehydration: Start intravenous fluids and monitor renal function. 3. Falls: The patient reports frequent falls. I will consult PT and OT services. Further management depending on the recommendations. 4. Coronary artery disease: This appears to be stable. 5. Congestive heart failure: This appears to be stable as well. The patient will be receiving intravenous fluids for management of acute kidney injury. We will watch volume status. 6. History of alcohol abuse: Continue thiamine. 7. Dyslipidemia: Continue statin. 8. Hypothyroidism: Continue levothyroxine. Many thanks for allowing me to participate in your patient's care. Please feel free to contact me with any questions or concerns. LEVEL OF RISK: High. LEVEL OF COMPLEXITY: High. Job ID: [id number] MTDD
[2019-06-19 06:56] LABS: #Basophils 0.1 thou/uL (0.0-0.2); #Eosinphils 0.3 thou/uL (0.0-0.7); #Lymphocytes 0.9 thou/uL (1.20-3.40); #Monocytes 0.9 thou/uL (0.11-0.59); #Neutrophils 7.1 thou/uL (1.40-6.50); %Basophils 0.6 % (0.0-1.0); %Eosinophils 3.2 % (0.0-10.0); %Lymphocytes 9.8 % (21.0-51.0); %Monocytes 9.4 % (0.0-10.0); %Neutrophils 77.1 % (42.0-75.0); Hemoglobin 12.7 g/dL (14.0-18.0); Mean Corpuscular HGB CONC 31.6 g/dL (32.0-36.0); Mean Corpuscular Hemoglobin 30.3 pg (27.0-31.0); Mean Platelet Volume 7.9 fL (7.4-10.4); Platelet Count 188 thou/uL (130-400); RBC Distribution Width 15.8 % (11.5-14.5); White Blood Cell (WBC) Count 9.2 thou/uL (4.8-10.8)
[2019-06-19 07:20] LABS: Anion Gap 11 mmol/L (10-20); BUN (Urea Nitrogen) 34 mg/dL (8.4-25.7); Calc. Creatinine Clearance 69 mL/min (70-130); Calcium 8.5 mg/dL (7.8-10.44); Carbon Dioxide 22 mmol/L (23-31); Chloride 111 mmol/L (98-107); Estimated GFR-MDRD 62; Glucose 89 mg/dL (83-110); Potassium 4.6 mmol/L (3.5-5.1); Sodium 139 mmol/L (136-145)
[2019-06-19] MEDS: Sodium Chloride 0.9% 1,000 ML IV SCH (09:04)
[2019-06-19 12:00] VITALS: TEMP 97.5
[2019-06-19] MEDS ORDERED: Melatonin 3 MG TAB PO PRN (13:29)
[2019-06-19] MEDS ORDERED: Doxycycline 100 MG CAP PO SCH ×2 (13:45→21:00)
[2019-06-19] MEDS ORDERED: Sulfameth/Trimethoprim DS 800-160mg TAB PO SCH (14:30)
--- NOTE | 2019-06-19 16:34 | PDOC.HOSPP ---
- Subjective Encounter Date: 06/19/19 Encounter Time: 09:40 Subjective: Pt seen for followup re: dehydration. States he feels better. - Objective Vital Signs & Weight: Vital Signs (12 hours) Temp Pulse Resp BP BP Pulse Ox Pulse Ox 06/19/19 11:59 97.5 F L 60 20 138/77 98 06/19/19 11:07 93 L 06/19/19 08:00 97.6 F 60 20 132/76 97 Pulse Ox 06/19/19 11:59 06/19/19 11:07 87 L 06/19/19 08:00 Weight Weight 214 lb 9.6 oz I&O: 06/18/19 06/19/19 06/20/19 06:59 06:59 06:59 Intake Total 480 Output Total 1100 Balance -620 Result Diagrams: 06/19/19 06:47 06/19/19 06:47 Additional Labs: Labs and MARs reviewed by la Hospitalist ROS - Review of Systems Cardiovascular: denies: chest pain, palpitations, orthopnea, paroxysmal noc. dyspnea, edema, light headedness Gastrointestinal: denies: nausea, vomiting, abdominal pain, diarrhea, constipation, melena, hematochezia - Medication Medications: Active Medications Generic Name Dose Route Start Last Admin Trade Name Freq PRN Reason Stop Dose Admin Bisacodyl 10 mg 06/18/19 11:49 06/19/19 15:21 Dulcolax PO 10 mg DAILYPRN PRN Administration Constipation Sodium Chloride 1,000 mls @ 50 mls/hr 06/18/19 12:00 06/19/19 09:04 Normal Saline 0.9% IV 1,000 mls .Q20H JAVON Administration Sodium Chloride 10 ml 06/18/19 21:00 06/19/19 09:04 Flush - Normal Saline IVF Not Given Q12HR JAVON Trimethoprim/Sulfamethoxazole 1 tab 06/19/19 14:30 06/19/19 15:00 Bactrim Ds PO 1 tab Q12H JAVON Administration - Exam General Appearance: awake alert Eye: anicteric sclera ENT: moist mucosa Neck: supple Heart: RRR Respiratory: CTAB, no rales Gastrointestinal: soft, non-tender Psychiatric: normal affect, normal behavior Hosp A/P (1) Dehydration Code(s): E86.0 - DEHYDRATION Status: Acute (2) HLD (hyperlipidemia) Code(s): E78.5 - HYPERLIPIDEMIA, UNSPECIFIED Status: Chronic (3) HTN (hypertension) Code(s): I10 - ESSENTIAL (PRIMARY) HYPERTENSION Status: Chronic Qualifiers: Hypertension type: essential hypertension Qualified Code(s): I10 - Essential (primary) hypertension (4) DIANE (acute kidney injury) Code(s): N17.9 - ACUTE KIDNEY FAILURE, UNSPECIFIED Status: Resolved - Plan continue antibiotics, PT/OT, out of bed/ambulate Pt was on bactrim prior to admission because of leg wound. Apparently the antibiotic was switched from another antibiotics after getting result of wound culture. Wound culture from 06/09/19 grew Acenatobacter and MRSA, both organisms sensitive to Bactrim DS. Will start pt on Bactrim for one more week. Will hold potassium supplementation. Pt will need his electrolytes and creatinine checked in 3-5 days. Currently awaiting Inpt Rehab eval. May be discharged when bed is available. DIANE resolved.
[2019-06-19 18:04] VITALS: BMI 29.0
[2019-06-19 19:44] VITALS: BP 119/64
[2019-06-19] MEDS ORDERED: Atorvastatin Calcium 10 MG TAB PO SCH (21:00)
[2019-06-19] MEDS ORDERED: Furosemide 40 MG TAB PO SCH (21:00)
[2019-06-19] MEDS ORDERED: Topiramate 100 MG TAB PO SCH (21:00)
--- NOTE | 2019-06-20 00:11 | DIS ---
DATE OF ADMISSION: 06/18/2019 DATE OF DISCHARGE: 06/19/2019 PRIMARY CARE PROVIDER: Russell Scott MD DISCHARGE DIAGNOSES: 1. Acute kidney injury. 2. Frequent falls. 3. Wound infection. CONDITION OF PATIENT ON THE DAY OF DISCHARGE: Stable. I assessed Mr. Mcdaniles on the day of discharge. He denies any chest pain or shortness of breath. Vital signs are stable. S1 and S2 are heard, regular. Lungs are clear to auscultation bilaterally. DISCHARGE MEDICATIONS: 1. Lipitor 10 mg every evening. 2. Vitamin D3 of 1000 units daily. 3. Vitamin B12 of 1000 mcg daily. 4. Fluoxetine 20 mg daily. 5. Flonase nasal spray two sprays to each naris daily. 6. Lasix 40 mg 2 times a day. 7. Levothyroxine 100 mcg daily. 8. Lisinopril 2.5 mg daily. 9. Melatonin 3 mg every evening as needed. 10. Omeprazole 40 mg daily. 11. Thiamine 250 mg daily. 12. Topamax 150 mg in the evening. 13. AREDS 2 soft gel one capsule daily. 14. Vitamin B complex one capsule daily. 15. Bactrim DS one tablet 2 times a day for one more week. HOSPITAL COURSE: Mr. Mcdaniels is a pleasant 83-year-old gentleman, who was admitted to [facility] on June 18, 2019, for acute kidney injury. Please refer to my history and physical note dated June 18, 2019, for further details. Improved with intravenous fluids. His home medications were resumed after clarifying. He was on Bactrim, as well as potassium. Potassium was discontinued. He is being continued on Bactrim for one more week for his leg wound infection. He also complained of frequent falls. He was evaluated by Therapy Services. He has been accepted for inpatient rehab at [facility]. He has been advised to have his electrolytes and creatinine level checked in 3 to 5 days. ACTIVITY: As tolerated. DIET: Heart healthy. DISCHARGE DESTINATION: [facility]. POST ACUTE CARE FOLLOWUP: With primary care provider in 3 days. Job ID: [id number]
[2019-06-20] MEDS ORDERED: Levothyroxine Sodium 100 MCG TAB PO SCH (06:00)
[2019-06-20] MEDS ORDERED: Lisinopril 2.5 MG TAB PO SCH (09:00)
[2019-06-20] MEDS ORDERED: FLUoxetine HCl 20 MG CAP PO SCH (09:00)
[2019-06-20] MEDS ORDERED: Fluticasone Propionate Nasal Spray 16 gm Bottle NASAL SCH (09:00)
[2019-06-20] MEDS ORDERED: Stress 600 With Zinc 1 TAB PO SCH (09:00)
[2019-06-20] MEDS ORDERED: Potassium Chloride 10 MEQ TAB PO SCH (09:00)
[2019-06-20] MEDS ORDERED: Cyanocobalamin (Vitamin B-12) 1,000 MCG TAB PO SCH (09:00)
[2019-06-20] MEDS ORDERED: Thiamine 100 MG TAB PO SCH (09:00)
[2019-06-20] MEDS ORDERED: Vit A,C & E/Lutein/Minerals Tablet PO SCH (09:00)
--- NOTE | 2019-06-26 15:51 | EKG ---
Test Reason : Blood Pressure : / mmHG Vent. Rate : 060 BPM Atrial Rate : 300 BPM P-R Int : 000 ms QRS Dur : 214 ms QT Int : 572 ms P-R-T Axes : 000 -57 087 degrees QTc Int : 572 ms Electronic ventricular pacemaker Confirmed by TESSY ROCK ([id number]), book editor ORQUIDEA CASTILLO ([id number]) on 06/26/2019 3:51:32 PM Referred By: Confirmed By:TESSY ROCK
== END 2019-06-19 19:45 ==
LOC: ERS 06:09 → T4-A 08:13
PROVIDERS: ADMIT Internal Medicine; ATTEND Internal Medicine
DX: N17.9 Acute kidney failure, unspecified (principal); S81.809A Unspecified open wound, unspecified lower leg, initial encounter; L08.9 Local infection of the skin and subcutaneous tissue, unspecified; I48.91 Unspecified atrial fibrillation; I25.10 Atherosclerotic heart disease of native coronary artery without angina pectoris; E03.9 Hypothyroidism, unspecified; E78.5 Hyperlipidemia, unspecified; M19.90 Unspecified osteoarthritis, unspecified site; I11.0 Hypertensive heart disease with heart failure; I50.9 Heart failure, unspecified; F32.9 Major depressive disorder, single episode, unspecified; E86.0 Dehydration; F10.11 Alcohol abuse, in remission; J43.9 Emphysema, unspecified; Z79.899 Other long term (current) drug therapy; Z88.0 Allergy status to penicillin; Z95.0 Presence of cardiac pacemaker
CPT/HCPCS: 70450; 72128; 72170; 73502; 80048; 80053; 81003; 82550; 83605; 85025 ×2; 93005; 94760; 96360; 96361 ×2; 97110; 97116 ×2; 97139 ×3; 97530; 97535; 99285; G0378 ×3; 36415